=== PATIENT | female | born 1965 | race Caucasian/White ===

== ENCOUNTER 2016-11-15 19:34 | Emergency (ER) | payer BC, OTHER ==
[~2016-11-15] VITALS: Ht 162.6 cm; Wt 71.2 kg
[~2016-11-15 19:34] MED LIST: BUPR300T59 PO; CLON1TAB4 PO; DEXL60CA9 PO; FLUT1DIS31 INH; MODA100T32 PO; RIZA10TA26 PO; TEMA15CA PO; VILA40TA PO
--- OUTSIDE RECORDS SUMMARY | 2016-11-15 19:38 | XMS REPORT | Referral Summary ---
Author Author [facility] Organization [facility] Address Unknown Phone Unavailable Care Team Providers Care Top And Trim Worker Name Role Phone PavithrachelseaFrench Primary Care Physician [phone] Encounter Date(s): 06/21/15 - 06/21/15 [facility] [address] [place] [address]- Discharge Diagnosis: Encounter for gynecological examination (general) (routine ) without abnormal findings Discharge Diagnosis: Encounter for immunization Discharge Diagnosis: Encounter for immunization Discharge Diagnosis: Well woman exam with routine gynecological exam Discharge Disposition: -Home or Self Care Attending Physician: Kelly Castellon APRN Admitting Physician: Kelly Castellon APRN Vital Signs Most recent to 1 oldest [Reference Range]: Peripheral Pulse 90 bpm Rate [60-100 bpm] (06/21/15 8:50 AM) Blood Pressure 124/76 mmHg [90-140/60-90 mmHg] (06/21/15 8:50 AM) Problem List Condition Effective Dates Status Health Status Informant Acne(Confirmed) Resolved Allergic rhinitis - Resolved hayfever(Confirmed) Anxiety Resolved disorder(Confirmed) Asthma(Confirmed) Resolved Depression(Confirmed Resolved ) Gastritis(Confirmed) Resolved Elevated calcium Active levels in blood(Confirmed) Insomnia(Confirmed) Resolved Renal stones - Resolved urethral(Confirmed) Allergies, Adverse Reactions, Alerts Substance Reaction Severity Status cephalexin Urticaria (hives) AND SOB Active Hibiclens1 Active iodine Eczema (rash) Active vancomycin histamine release rxn Active itching all over 1Hibiclens - rash Medications Advair Diskus 250 mcg-50 mcg inhalation powder See Instructions, INHALE ONE DOSE BY MOUTH TWICE DAILY, # 60 unknown unit, eRx: [id number], INHALE ONE DOSE BY MOUTH TWICE DAILY Start Date: 08/18/14 Status: Ordered Genoveva Oral, 1 tab daily at HS, 0 Refill(s) Start Date: 05/17/14 Status: Ordered Benadryl Allergy mg, Oral, Daily, as needed for allergy symptoms, 0 Refill(s) Start Date: 02/01/14 Status: Ordered buPROPion 300 mg/24 hours (XL) oral tablet, extended release 1 tabs, Oral, Daily, # 30 tabs, 0 Refill(s) Start Date: 02/01/14 Status: Ordered clonazePAM 1 mg oral tablet, disintegrating 1 mg 1 tabs, Oral, Daily, as needed for anxiety, 0 Refill(s) Start Date: 02/01/14 Status: Ordered Dexilant 60 mg oral delayed release capsule See Instructions, 1 caps Oral Daily, # 30 caps, eRx: [id number], 1 caps Oral Daily Start Date: 04/12/15 Status: Ordered Dexilant 60 mg oral delayed release capsule See Instructions, 1 caps Oral Daily, # 30 caps, 5 Refill(s), eRx: [facility], 1 caps Oral Daily Start Date: 05/12/15 Status: Ordered modafinil 100 mg oral tablet 100 mg 1 tabs, Oral, Raghavendra, Dr Harrell prescriber, # 30 tabs, 0 Refill(s) Start Date: 04/19/15 Status: Ordered rizatriptan 10 mg oral tablet See Instructions, TAKE ONE TABLET BY MOUTH AT ONSET OF HEADACHE, MAY REPEAT IN 2 HOURS IF NOT BETTER. MAXIMUM 2 TABLETS PER DAY., # 20 tabs, eRx: [facility], TAKE ONE TABLET BY MOUTH AT ONSET OF HEADACHE, MAY REPEAT IN 2 HOURS IF NOT BETT... Start Date: 03/21/15 Status: Ordered temazepam 15 mg oral capsule 1 caps, Oral, Bedtime (once a day), as needed for sleep, 0 Refill(s) Start Date: 02/01/14 Status: Ordered Ventolin HFA 90 mcg/inh inhalation aerosol See Instructions, INHALE TWO PUFFS EVERY 4 TO 6 HOURS NEEDED, # 18 unknown unit, 6 Refill(s), eRx: [id number], INHALE TWO PUFFS EVERY 4 TO 6 HOURS NEEDED Start Date: 03/04/15 Status: Ordered Viibryd 40 mg oral tablet tabs, Oral, Daily, 0 Refill(s) Start Date: 02/01/14 Status: Ordered Vitamin D with Minerals oral tablet 1 tabs, Oral, Daily, # 30 tabs, 0 Refill(s) Start Date: 03/04/15 Status: Ordered Vitamin D3 1000 intl units oral tablet 2,000 Intl_Units 2 tabs, Oral, Daily, # 30 tabs, 0 Refill(s) Start Date: 03/10/15 Status: Ordered Zantac 150 mg, Oral, Bedtime (once a day), 0 Refill(s) Start Date: 05/17/14 Status: Ordered Results No data available for this section Immunizations Vaccine Date Refusal Reason influenza virus vaccine, inactivated 06/21/15 Procedures Procedure Date Related Diagnosis Body Site Colonoscopy1 05/18/15 COLORECTAL CANCER SCREENING; COLONOSCOPY ON 05/18/15 INDIVIDUAL NOT MEETING CRITERIA FOR HIGH RISK2 bimanual pelvic examination Cystoscopy hydrodistention of bladder SLT laser vaporiz chronic trigon & interstitia tendon reimplant urethral calibration & dilation 1repeat in 10 yrs unless new indications arise per Dr Ritter notes 2Normal, repeat in 10 years Social History Social History Type Response Smoking Status Former smoker; Type: Cigarettes Assessment and Plan No data available for this section
--- OUTSIDE RECORDS SUMMARY | 2016-11-15 19:38 | XMS REPORT | Referral Summary ---
Author Author [facility] Organization [facility] Address Unknown Phone Unavailable Care Team Providers Care Boarder Steam Name Role Phone French Pelaez Primary Care Physician [phone] Encounter VC Date(s): 04/13/16 - 04/13/16 [facility] [address] [place] [id number] Discharge Diagnosis: Classic migraine Discharge Diagnosis: Intractable classical migraine Discharge Disposition: 01-Home or Self Care Attending Physician: French Pelaez DO Admitting Physician: French Pelaez DO Vital Signs Most recent to 1 oldest [Reference Range]: Temperature Tympanic 36.9 degC [36.6-38.1 degC] (04/13/16 1:21 PM) Peripheral Pulse 78 bpm Rate [60-100 bpm] (04/13/16 1:21 PM) Respiratory Rate 17 br/min [14-20 br/min] (04/13/16 1:21 PM) Blood Pressure 140/100 mmHg [90-140/60-90 mmHg] (04/13/16 1:21 PM) SpO2 98 % (04/13/16 1:21 PM) Problem List Condition Effective Dates Status Health Status Informant Acne(Confirmed) Resolved Allergic rhinitis - Resolved hayfever(Confirmed) Anxiety Resolved disorder(Confirmed) Asthma(Confirmed) Resolved Depression(Confirmed Resolved ) Enthesopathy of hip Active region(Confirmed) Gastritis(Confirmed) Resolved Elevated calcium Active levels in blood(Confirmed) Hyperparathyroidism( Active Confirmed) Insomnia(Confirmed) Resolved Lumbar Active radiculopathy(Confir med) Classic Active migraine(Confirmed) Atrophy of calf Active muscles on right(Confirmed) Renal stones - Resolved urethral(Confirmed) Spinal stenosis, Active lumbar region, without neurogenic claudication(Confirm ed) Allergies, Adverse Reactions, Alerts Substance Reaction Severity Status cephalexin Urticaria (hives) AND SOB Active erythromycin Active Hibiclens1 Active iodine Eczema (rash) Active Ultram2 Active vancomycin histamine release rxn Active itching all over 1Hibiclens - rash 2possible reaction, developed hives after taking Medications acetaminophen extended release mg, Oral, q8hr, 0 Refill(s) Start Date: 01/25/16 Status: Ordered Adderall 30 mg oral tablet 30 mg 1 tabs, Oral, BID, 0 Refill(s) Start Date: 02/22/16 Status: Ordered Advair Diskus 250 mcg-50 mcg inhalation powder See Instructions, INHALE ONE DOSE BY MOUTH TWICE DAILY, # 60 unknown unit, eRx: [facility], INHALE ONE DOSE BY MOUTH TWICE DAILY [...] mg oral delayed release capsule See Instructions, TAKE ONE CAPSULE BY MOUTH ONCE DAILY, # 30 caps, 5 Refill(s), [facility], TAKE ONE CAPSULE BY MOUTH ONCE DAILY Start Date: 02/02/16 Status: Ordered Fetzima 40 mg oral capsule, extended release mg caps, Oral, Daily, 0 Refill(s) Start Date: 04/04/16 Status: Ordered Fioricet oral tablet 1 tabs, Oral, q4hr, as needed for pain, # 40 tabs, 0 Refill(s) Start Date: 04/13/16 Stop Date: 05/14/16 Status: Ordered rizatriptan 10 mg oral tablet See Instructions, TAKE ONE TABLET BY MOUTH AT ONSET OF HEADACHE, MAY REPEAT IN 2 HOURS IF NOT BETTER. MAXIMUM OF 2 TABLETS PER DAY., # 20 tabs, [facility], TAKE ONE TABLET BY MOUTH AT ONSET OF HEADACHE, MAY REPEAT IN 2 HOURS IF NOT BE... Start Date: 04/03/16 Status: Ordered temazepam 30 mg oral capsule 30 mg 1 caps, Oral, Bedtime (once a day), as needed for sleep, 0 Refill(s) Start Date: 02/22/16 Status: Ordered Ultram 50 mg oral tablet 50 mg 1 tabs, Oral, q6hr, as needed for pain, # 40 tabs, 0 Refill(s) Start Date: 03/14/16 Status: Ordered Ventolin HFA 90 mcg/inh inhalation aerosol See Instructions, INHALE TWO PUFFS EVERY 4 TO 6 HOURS NEEDED, # 18 unknown unit, 6 Refill(s), eRx: [facility], INHALE TWO PUFFS EVERY 4 TO 6 HOURS NEEDED Start Date: 03/04/15 Status: Ordered Vitamin D with Minerals oral tablet 1 tabs, Oral, Daily, # 30 tabs, 0 Refill(s) Start Date: 03/04/15 Status: Ordered Vitamin D3 1000 intl units oral tablet 2,000 Intl_Units 2 tabs, Oral, Daily, # 30 tabs, 0 Refill(s) Start Date: 03/10/15 Status: Ordered Zantac 150 mg, Oral, Bedtime (once a day), 0 Refill(s) Start Date: 05/17/14 Status: Ordered Zofran 4 mg oral tablet 4 mg 1 tabs, Oral, q6hr, Nausea or Vomiting, # 30 tabs, 0 Refill(s), Pharmacy: [facility], 1 tabs Oral q6hr,PRN:Nausea or Vomiting Start Date: 04/13/16 Stop Date: 05/14/16 Status: Ordered Results No data available for this section Immunizations Vaccine Date Refusal Reason influenza virus vaccine, inactivated 06/21/15 Procedures Procedure Date Related Diagnosis Body Site BILATERAL TROCHANTERIC BURSE/ INJ UNDER 03/13/16 ULTRASOUND L3-4 Translaminar ANTHONY 02/28/16 Colonoscopy1 05/18/15 COLORECTAL CANCER SCREENING; COLONOSCOPY ON 05/18/15 INDIVIDUAL NOT MEETING CRITERIA FOR HIGH RISK2 Bone density scan3 03/08/14 bimanual pelvic examination Cystoscopy hydrodistention of bladder SLT laser vaporiz chronic trigon & interstitia tendon reimplant urethral calibration & dilation 1repeat in 10 yrs unless new indications arise per Dr Ritter notes 2Normal, repeat in 10 years 3REPEAT IN 2 YEARS Social History Social History Type Response Smoking Status Former smoker; Type: Cigarettes Assessment and Plan Extracted from: Title: Office Visit Note Author: French Pelaez DO Date: 04/13/16 Assessment/Plan 1.Classic migraine 1. Her history is consistent with classic migraines although they seem to be worse compared to her baseline. 2. CT of the head was negative. 3. She was treated in the office with 500 mL of normal saline by IV over an hour, 25 mg of Benadryl and 5 mg of morphine in addition to 4 mg of Zofran. Patient was observed for 20 Hours, on dismissal her headaches have decreased from 8-0. 4. She was dismissed to home withFioricet, one tablet every 6 hours as needed and Zofran4 mgevery 6 hours as needed for nausea. 5. Follow-up if recurrent symptoms, we may consider putting her on Topamax for preventivemigraine treatment. Over one hour was spent jimi-su-bjke again with this patientand her today. Ordered: Sodium Chloride 0.9% 500 mL, Total Volume (mL): 500, IV, 500 mL/hr, Start Date : 04/13/16 14:18:00 CDT Office Visit Level 5 Est 80151 Ther/Proph/Diag Iv Inf Init 37618 2.Intractable classical migraine As above If the vaginal spotting persists then we plan on sending her to coating mixer tender for further evaluation and recommendations. Ordered: Office Visit Level 5 Est 89435 Ther/Proph/Diag Iv Inf Init [id number] Orders: butalbital/acetaminophen/caffeine, 1 tabs, Oral, q4hr, as needed for pain, # 40 tabs, 0 Refill(s) ondansetron, 4 mg 1 tabs, Oral, q6hr, Nausea or Vomiting, # 30 tabs, 0 Refill( s), Pharmacy: [id number], 1 tabs Oral q6hr,PRN:Nausea or Vomiting
--- OUTSIDE RECORDS SUMMARY | 2016-11-15 19:38 | XMS REPORT | Referral Summary ---
Author Author [facility] Organization [facility] Address Unknown Phone Unavailable Care Team Providers Care Emergency Planning And Response Manager Name Role Phone PavithrachelseaFrench Primary Care Physician [phone] Encounter VC Date(s): 07/10/16 - 07/10/16 [facility] [address] [place], [place] [address] Discharge Disposition: 01-Home or Self Care Attending Physician: Amari Torres MD Admitting Physician: Amari Torres MD Vital Signs Most recent to 1 oldest [Reference Range]: Temperature Temporal 36.9 degC Artery [36.3-37.8 (07/10/16 8:51 AM) degC] Peripheral Pulse 83 bpm Rate [60-100 bpm] (07/10/16 8:51 AM) Respiratory Rate 16 br/min [14-20 br/min] (07/10/16 8:51 AM) Blood Pressure 148/93 mmHg [90-140/60-90 mmHg] *HI* (07/10/16 8:51 AM) SpO2 99 % (07/10/16 8:51 AM) Problem List Condition Effective Dates Status Health Status Informant Acne(Confirmed) Resolved Allergic rhinitis - Resolved hayfever(Confirmed) Anxiety Resolved disorder(Confirmed) Asthma(Confirmed) Resolved Depression(Confirmed Resolved ) Enthesopathy of hip Active region(Confirmed) Gastritis(Confirmed) Resolved Elevated calcium Active levels in blood(Confirmed) Insomnia(Confirmed) Resolved Lumbar Active radiculopathy(Confir med) Lumbar Active spondylosis(Confirme d) Classic Active migraine(Confirmed) Atrophy of calf Active muscles on right(Confirmed) Hyperparathyroidism( Active Confirmed) Renal stones - Resolved urethral(Confirmed) Spinal stenosis, Active lumbar region, without neurogenic claudication(Confirm ed) Allergies, Adverse Reactions, Alerts Substance Reaction Severity Status Adhesive Bandage Rash Active cephalexin Urticaria (hives) AND SOB Active erythromycin [...] TWICE DAILY, # 60 unknown unit, eRx: [facility], INHALE ONE DOSE BY MOUTH TWICE [...] DAILY, # 30 caps, 5 Refill(s), eRx: [facility], TAKE ONE CAPSULE BY MOUTH ONCE DAILY Start Date: 02/02/16 Status: Ordered Fioricet oral tablet 1 tabs, Oral, q4hr, as needed for pain, # 40 tabs, 0 Refill(s), Pharmacy: [facility]28 Start Date: 05/28/16 Status: Ordered HYDROcodone-acetaminophen 5 mg-325 mg oral tablet 1-2 tabs, Oral, q4hr, as needed for pain, # 24 tabs, 0 Refill(s) Start Date: 07/10/16 Status: Ordered rizatriptan 10 mg oral tablet See Instructions, TAKE ONE TABLET BY MOUTH AT ONSET OF HEADACHE, MAY REPEAT IN 2 HOURS IF NOT BETTER. MAXIMUM OF 2 TABLETS PER DAY., # 20 tabs, eRx: [facility], TAKE ONE TABLET BY MOUTH AT ONSET OF HEADACHE, MAY REPEAT IN 2 HOURS IF NOT BE... Start Date: 04/03/16 Status: Ordered temazepam 30 mg oral capsule 30 mg 1 caps, Oral, Bedtime (once a day), as needed for sleep, 0 Refill(s) Start Date: 02/22/16 Status: Ordered Ventolin HFA 90 mcg/inh inhalation aerosol See Instructions, INHALE TWO PUFFS EVERY 4 TO 6 HOURS NEEDED, # 18 unknown unit, 6 Refill(s), eRx: [facility], INHALE TWO PUFFS EVERY 4 TO 6 HOURS NEEDED Start Date: 03/04/15 Status: Ordered Viibryd 40 mg oral tablet mg tabs, Oral, Daily, 0 Refill(s) Start Date: 07/10/16 Status: Ordered Zantac 150 mg, Oral, Bedtime (once a day), 0 Refill(s) Start Date: 05/17/14 Status: Ordered Results Chemistry Most recent to 1 oldest [Reference Range]: Surg. Parathyroid 11 pg/mL Hormone [11-67 (07/10/16 12:13 PM) pg/mL] U Beta hCG Ql Neg (07/10/16 9:02 AM) Immunizations Vaccine Date Refusal Reason influenza virus vaccine, inactivated 06/21/15 Procedures Procedure Date Related Diagnosis Body Site Collection of venous blood by venipuncture 07/10/16 Parathyroidectomy or exploration of 07/10/16 parathyroid(s);.. Bilateral L5-S1 Facet 04/24/16 BILATERAL TROCHANTERIC BURSE/ INJ UNDER 03/13/16 ULTRASOUND [...] Cigarettes Assessment and Plan Extracted from: Title: Ambulatory Patient Education Author: Nancy Thurman RN, Date: 07/10/16 ACLS, BLS, PALS [facility] [place] [phone] Post Operative Instructions Activities Ambulate_X_ Unrestricted Exercise__ None_x_ Light__ UnrestrictedOther: 1 weeks Do not strain or lift more than 15 lbs. for 1 week. Diet __ Liquids (Jell-O, soups, etc., if you are nauseated) _X_ Begin with liquids and light foods then progress to regular diet. __ Regular diet __ No alcoholic beverages for 24 hours or while taking pain medication. Personal hygiene __ Bath _X_ Shower after _24_ hours__ Sponge Bath__ Sitz Baths At Home care __ Remove dressing in ___hours__ Change dressing as necessary. __ Keep dressing clean and dry.__ Do not change dressing until you see your doctor. __ Elevate affected area above level of your heart._X_ Apply ice to area for _ 24__ hours ___Remove drain in ___ hours __ Other: If any problems occur or if you have any further questions, please contact your physician. In an emergency, call [phone] ([phone]), if you cannot reach your physician. If you find that you cannot contact your physician, but feel that your signs and symptoms warrant a physicians attention, go to an Emergency room which is the closest to you. Activities:Call your surgeon promptly if you have: __ Take Tylenol/Advil as needed for discomfort _X_ If fever over _101_ _ _X_ Prescription given for discomfort. Use as directed._X_ Pain not relieved by pain medication _X_ Bleeding or unexpected drainage from incision. _X_ Cleanse incision with Hydrogen peroxide twice daily and apply Polysporin ointment _X_ Resume routine medications._X_ Extreme redness or swelling around incision. Other: __ Inability to urinate by: _X_ Next dose of pain medicine may be given at __X_ Persistent nausea and vomiting. (Take with food to prevent stomach upset.) _X_ Stool softener_X_ Cough develops or difficulty breathing. Do NOT drive or operate hazardous machinery for 24 hours or while taking pain medication. Do not sign any important documents or make important decisions for 24 hours following surgery. When taking pain medicine, be careful as you walk or climb stairs as dizziness is not unusual. Check temperature every four hours during the day for two days. ENT Parathyroidectomy A parathyroidectomy is surgery to remove one or more parathyroid glands. These glands are in your neck. They produce a hormone (parathyroid hormone) that helps to control the level of calcium in your body. Each gland is very small, about the size of a grain of rice. Most people have four parathyroid glands. You may have a parathyroidectomy if your body produces too much parathyroid hormone (hyperparathyroidism). This is usually caused by one or more of your parathyroid glands becoming enlarged from a type of noncancerous tumor (adenoma) . One of four methods may be used for a parathyroidectomy. An open, minimally invasive, video-assisted, or endoscopic procedure may be done. Some steps of the procedure will vary depending on the method being used. LET YOUR HEALTH CARE PROVIDER KNOW ABOUT: Any allergies you have. All medicines you are taking, including vitamins, herbs, eye drops, creams, and flxc-gru-hjrdanh medicines. Previous problems you or members of your family have had with the use of anesthetics. Any blood disorders you have. Previous surgeries you have had. Medical conditions you have. RISKS AND COMPLICATIONS Generally, this is a safe procedure. However, problems can occur and include: Excessive bleeding. Infection near the incision. Slow healing. Pooling of blood under the skin in the incision area (hematoma). Blood clots. Damage to: The nerves in your neck. Skin (scarring). Surrounding blood vessels. Need for additional surgery. A hoarse or weak voice. A condition in which your body does not make enough parathyroid hormone ( hypoparathyroidism). This is rare. Difficulty breathing. This is rare. BEFORE THE PROCEDURE Ask your health care provider: About changing or stopping your regular medicines. This is especially important if you are taking diabetes medicines or blood thinners. If you can take medicines such as aspirin and ibuprofen. These medicines can thin your blood. Do not take these medicines if your health care provider directs you not to. Do not eat or drink anything after midnight on the night before the procedure or as directed by your health care provider. You might be asked to shower or wash with an antibacterial soap. Plan to have someone take you home after the procedure. PROCEDURE An IV tube will be inserted into a vein in your hand or arm. Medicine will flow through this tube directly into your body. You may be given a medicine to help you relax (sedative). You will be given a medicine that makes you go to sleep (general anesthetic). As soon as you are asleep, the surgeon will make the incisions needed for the type of procedure that you are having. Open parathyroidectomy. For this procedure, the surgeon will make a single incision in the center of your neck. The incision will be about 24 inches long. Minimally invasive parathyroidectomy. For this procedure, the surgeon will make one small incision in the side of your neck. This smaller incision will be about 12 inches long. Before the procedure, you might be given an injection of a type of medicine that will help the surgeon to locate the gland. Video-assisted parathyroidectomy. For this procedure, two small incisions will be made in your neck. One incision is for the instruments that will be used to remove the gland. The other incision is for a tiny camera that helps the surgeon to see inside your neck. Endoscopic parathyroidectomy. For this procedure, the surgeon uses a tool that is like a small, flexible, tubelike telescope (endoscope). The endoscope is inserted through an incision that is made just above your collarbone. This method reduces the scarring and pain of a parathyroidectomy. The surgeon will remove the gland or glands that are causing problems and then close the incisions using stitches or other methods. The stitches are often hidden under the skin. AFTER THE PROCEDURE Your blood pressure, heart rate, breathing rate, and blood oxygen level will be monitored often until the medicines you were given have worn off. Your blood will be tested to check the calcium level in your body. You may have numbness around your mouth or in your fingers or toes for a day or two after the surgery. This is caused by a low level of calcium. You may have to take calcium supplements. This information is not intended to replace advice given to you by your health care provider. Make sure you discuss any questions you have with your health care provider. Document Released: 11/08/2009 Document Revised: 09/02/2015 Document Reviewed: [employer] Interactive Patient Education 2016 [employer] Follow Up With: Where: When: Remington Regehr 1949 [employer] [place]; Via [place] Addison [phone] Business (1) Within 1 week Comments:
--- OUTSIDE RECORDS SUMMARY | 2016-11-15 19:38 | XMS REPORT | Referral Summary ---
Author Author [facility] Organization [facility] Address Unknown Phone Unavailable Care Team Providers Care Forestry Pilot Name Role Phone French Pelaez Primary Care Physician [phone] Encounter VC Date(s): 09/24/16 - 09/24/16 [facility] [address] [place] [address]- Discharge Diagnosis: Sleep Pattern Disturbance Discharge Diagnosis: Heart palpitations Discharge Diagnosis: HTN (hypertension) Discharge Diagnosis: Mixed anxiety and depressive disorder Discharge Diagnosis: Classic migraine Discharge Disposition: 01-Home or Self Care Attending Physician: French Pelaez DO Admitting Physician: French Pelaez DO Vital Signs Most recent to 1 oldest [Reference Range]: Peripheral Pulse 86 bpm Rate [60-100 bpm] (09/24/16 8:54 AM) Respiratory Rate 18 br/min [14-20 br/min] (09/24/16 8:54 AM) Blood Pressure 110/82 mmHg [90-140/60-90 mmHg] (09/24/16 8:54 AM) SpO2 98 % (09/24/16 8:54 AM) Problem List Condition Effective Dates Status [...] 2possible reaction, developed hives after taking Medications Advair Diskus 250 mcg-50 mcg inhalation powder See Instructions, INHALE ONE DOSE BY MOUTH TWICE DAILY, # 60 unknown unit, eRx: [facility], INHALE ONE DOSE BY MOUTH [...] ONCE DAILY, # 30 caps, 5 Refill(s), Pharmacy: [facility], TAKE ONE CAPSULE BY MOUTH ONCE DAILY Start Date: 08/17/16 Status: Ordered Dulcolax Laxative mg, Daily, 0 Refill(s) Start Date: 09/18/16 Status: Ordered Dulcolax Stool Softener mg, Oral, BID, 0 Refill(s) Start Date: 09/18/16 Status: Ordered Fioricet oral tablet 1 tabs, Oral, q4hr, as needed for pain, # 40 tabs, 3 Refill(s), Pharmacy: [facility] Start Date: 08/21/16 Status: Ordered hydroCHLOROthiazide 25 mg oral tablet 25 mg 1 tabs, Oral, Daily, # 90 tabs, 3 Refill(s), Pharmacy: [facility], 1 tabs Oral Daily,x90 days Start Date: 09/24/16 Stop Date: 09/19/17 Status: Ordered propranolol 10 mg oral tablet 10 mg 1 tabs, Oral, BID, # 60 tabs, 3 Refill(s), Pharmacy: [facility], 1 tabs Oral BID Start Date: 09/20/16 Status: Ordered rizatriptan 10 mg oral tablet mg tabs, Oral, Daily, 0 Refill(s) Start Date: 09/18/16 Status: Ordered traMADol 50 mg oral tablet 1-2 tabs, Oral, q6hr, as needed for pain, # 40 tabs, 0 Refill(s) Start Date: 09/07/16 Stop Date: 09/28/16 Status: Ordered Ventolin HFA 90 mcg/inh inhalation aerosol See Instructions, INHALE TWO PUFFS EVERY 4 TO 6 HOURS NEEDED, # 18 unknown unit, 6 Refill(s), eRx: [facility], INHALE TWO PUFFS EVERY 4 TO 6 HOURS NEEDED Start Date: 03/04/15 Status: Ordered Viibryd 40 mg oral tablet mg tabs, Oral, Daily, 0 Refill(s) Start Date: 07/10/16 Status: Ordered Wellbutrin XL 300 mg/24 hours oral tablet, extended release 300 mg 1 tabs, Oral, Daily, # 30 tabs, 1 Refill(s), Pharmacy: [facility], 1 tabs Oral Daily Start Date: 07/11/16 Status: Ordered Zantac 150 mg, Oral, Bedtime (once a day), 0 Refill(s) Start Date: 05/17/14 Status: Ordered Results No data available for this section Immunizations Given and Recorded Vaccine Date Status Refusal Reason influenza virus vaccine, inactivated 06/21/15 Given zoster vaccine live 09/24/16 Given Procedures Procedure Date Related Diagnosis Body Site Parathyroidectomy or exploration of 07/10/16 parathyroid(s);.. Bilateral [...] Visit Note Author: French Pelaez DO Date: 09/24/16 Assessment/Plan 1.Sleep Pattern Disturbance 1. We will refer for sleep study. 2. Good sleep hygiene discussed and recommended. 3. Avoid stimulants. Ordered: Office Visit Level 4 Est 61821 2.Mixed anxiety and depressive disorder 1. Continue with recommendations as far insurance follow up specialist. Ordered: Office Visit Level 4 Est 33515 3.Heart palpitations 1. Palpitations were likely medication related. 2. I anticipate that the propranolol will help with the palpitations as well as titrating her off of Fioricet. 3. Holter monitor study was essentially normal. 4. If these symptoms persist then we plan on referring her to sales and management trainee. She would like to hold off on referral at this time. Ordered: Office Visit Level 4 Est 16803 4.Classic migraine 1. Continue with recommendations as per Dr. Beebe. Ordered: Office Visit Level 4 Est 33852 5.HTN (hypertension) 1. Blood pressure is controlled at this time. 2. Continue with low salt diet. 3. Continue with HCTZ as previous. Ordered: hydrochlorothiazide, 25 mg 1 tabs, Oral, Daily, # 90 tabs, 3 Refill(s), Pharmacy: [facility], 1 tabs Oral Daily,x90 days Need for vaccination 1. Shingles vaccination given today. Ordered: Office Visit Level 4 Est 96868
--- OUTSIDE RECORDS SUMMARY | 2016-11-15 19:39 | XMS REPORT | Referral Summary ---
Author Author [facility] Organization [facility] Address Unknown Phone Unavailable Care Team Providers Care Help Desk Analyst Name Role Phone French Pelaez Primary Care Physician [phone] Encounter VC Date(s): 07/17/16 - 07/17/16 [facility] [address] [place], [place] [address] Discharge Disposition: 01-Home or Self Care Attending Physician: Remington Tony MD Admitting Physician: Remington Tony MD Vital Signs No data available for this section Problem List Condition Effective Dates Status Health [...] TWICE DAILY, # 60 unknown unit, eRx: [facility], INHALE ONE DOSE BY [...] 02/01/14 Status: Ordered clonazePAM 1 mg oral tablet See Instructions, TAKE ONE-HALF TABLET BY MOUTH TWICE DAILY AND ONE TABLET AT BEDTIME NEEDED., # 60 tabs, 0 Refill(s) Start Date: 07/11/16 Status: Ordered clonazePAM 1 mg oral tablet, disintegrating 1 mg 1 tabs, Oral, Daily, as needed for anxiety, 0 Refill(s) Start Date: 02/01/14 Status: Ordered Dexilant 60 mg oral delayed release capsule See Instructions, TAKE ONE CAPSULE BY MOUTH ONCE DAILY, # 30 caps, 5 Refill(s), eRx: [facility], TAKE ONE CAPSULE BY MOUTH ONCE DAILY Start Date: 02/02/16 Status: Ordered Fioricet oral tablet 1 tabs, Oral, q4hr, as needed for pain, # 40 tabs, 0 Refill(s), Pharmacy: [facility]28 Start Date: 05/28/16 Status: Ordered [...] TABLETS PER DAY., # 20 tabs, eRx: [facility], TAKE ONE TABLET BY MOUTH AT ONSET OF HEADACHE, MAY REPEAT IN 2 HOURS IF NOT BE... Start Date: 04/03/16 Status: Ordered temazepam 30 mg oral capsule 30 mg 1 caps, Oral, Bedtime (once a day), as needed for sleep, 0 Refill(s) Start Date: 02/22/16 Status: Ordered temazepam 30 mg oral capsule 30 mg 1 caps, Oral, Bedtime (once a day), as needed for sleep, X 30 days, # 30 caps, 0 Refill(s) Start Date: 07/11/16 Stop Date: 08/10/16 Status: Ordered Ventolin HFA 90 mcg/inh inhalation aerosol See Instructions, INHALE TWO PUFFS EVERY 4 TO 6 HOURS NEEDED, # 18 unknown unit, 6 Refill(s), eRx: [facility], INHALE TWO PUFFS EVERY 4 TO 6 HOURS NEEDED Start Date: 03/04/15 Status: Ordered Viibryd 40 mg oral tablet mg tabs, Oral, Daily, 0 Refill(s) Start Date: 07/10/16 Status: Ordered Wellbutrin XL 300 mg/24 hours oral tablet, extended release 300 mg 1 tabs, Oral, Daily, # 30 tabs, 1 Refill(s), Pharmacy: [facility], 1 tabs Oral Daily Start [...]
--- OUTSIDE RECORDS SUMMARY | 2016-11-15 19:39 | XMS REPORT | Referral Summary ---
Author Author [facility] Organization [facility] Address Unknown Phone Unavailable Care Team Providers Care Activities Coordinator Name Role Phone French Pelaez Primary Care Physician [phone] Encounter VC Date(s): 02/22/16 - 02/22/16 [facility] [address] [place] [address] Discharge Diagnosis: Chronic back pain Discharge Diagnosis: Encounter for wellness examination Discharge Diagnosis: GERD (gastroesophageal reflux disease) Discharge Diagnosis: Moderate persistent stable asthma Discharge Disposition: 01-Home or Self Care Attending Physician: French Pelaez DO Admitting Physician: French Pelaez DO Vital Signs Most recent to 1 oldest [Reference Range]: Peripheral Pulse 95 bpm Rate [60-100 bpm] (02/22/16 1:02 PM) Blood Pressure 118/80 mmHg [90-140/60-90 mmHg] (02/22/16 1:02 PM) SpO2 99 % (02/22/16 1:02 PM) Problem List Condition Effective Dates Status Health Status Informant Acne(Confirmed) Resolved Allergic rhinitis - Resolved hayfever(Confirmed) Anxiety Resolved disorder(Confirmed) Asthma(Confirmed) Resolved Depression(Confirmed Resolved ) Enthesopathy of hip Active region(Confirmed) Gastritis(Confirmed) Resolved Elevated calcium Active levels in blood(Confirmed) Hyperparathyroidism( Active Confirmed) Insomnia(Confirmed) Resolved Lumbar Active radiculopathy(Confir med) Classic Active migraine(Confirmed) Atrophy of calf Active muscles on right(Confirmed) Renal stones - Resolved urethral(Confirmed) Allergies, Adverse [...] TWICE DAILY, # 60 unknown unit, eRx: [facility], INHALE ONE DOSE BY [...] DAILY, # 30 caps, 5 Refill(s), eRx: [facility], TAKE ONE CAPSULE BY MOUTH ONCE DAILY Start Date: 02/02/16 Status: Ordered temazepam 30 mg oral capsule 30 mg 1 caps, Oral, Bedtime (once a day), as needed for sleep, 0 Refill(s) Start Date: 02/22/16 Status: Ordered Tylenol with Codeine #3 oral tablet 1 tabs, Oral, q6hr, as needed for pain, # 30 tabs, 0 Refill(s) Start Date: 02/22/16 Stop Date: 03/23/16 Status: Ordered Ventolin HFA 90 mcg/inh inhalation aerosol See Instructions, INHALE TWO PUFFS EVERY 4 TO 6 HOURS NEEDED, # 18 unknown unit, 6 Refill(s), eRx: [facility], INHALE TWO PUFFS EVERY [...] Cigarettes Assessment and Plan Extracted from: Title: Wellness visit Author: French Pelaez DO Date: 02/22/16 Assessment/Plan 1.Encounter for wellness examination 1. This is a well-developed well- nourished 51-year-old female in good health. 2. Healthy lifestyle changes recommended to decrease cardiovascular risk factors. Patient voiced understanding. 3. Labs reviewed in detail with the patient, copy was provided. 4. Repeat fasting labs in one year. 5. Recommended that she ensures she is getting a yearly well woman exam in addition to mammogram. Ordered: Initial Comp [place]ive [place] 40 to 64 [place] [address] 2.Moderate persistent stable asthma 1. Asthma is well controlled at this time. 2. Continue with Advair for prevention and Ventolin for rescue inhaler. 3. Follow-up for exacerbations that aren't controlled. Ordered: Initial Comp [place]ive [place] 40 to 64 [place] [address] 3.GERD (gastroesophageal reflux disease) 1. Diet modification recommended. 2. Continue with Dexilant one tablet daily. Ordered: Initial Comp Preventive [place] 40 to 64 [place] [address] 4.Chronic back pain, Other chronic pain 1. Continue with scheduled back epidural injection. Continue with pain management as per Dr. Skinner. 2. Discontinue Ultram secondary to allergic reaction. 3. Tylenol 3, one tablet every 4-6 hours as needed, prescription given for 30 tablets. Ordered: Initial Comp Preventive Med 40 to 64 [place] [address] Orders: acetaminophen-codeine, 1 tabs, Oral, q6hr, as needed for pain, # 30 tabs, 0 Refill(s)
--- OUTSIDE RECORDS SUMMARY | 2016-11-15 19:39 | XMS REPORT | Referral Summary ---
Author Author [facility] Organization [facility] Address Unknown Phone Unavailable Care Team Providers Care Member Of The Legislative Assembly Name Role Phone French Pelaez Primary Care Physician [phone] Encounter VC Date(s): 04/23/16 - 04/23/16 [facility] [address] [facility] [place] [address] Discharge Diagnosis: Lumbar disc herniation Discharge Diagnosis: Lumbar spondylosis Discharge Disposition: 01-Home or Self Care Attending Physician: Wally Skinner MD Admitting Physician: Wally Skinner MD Vital Signs Most recent to 1 oldest [Reference Range]: Blood Pressure 146/75 mmHg [90-140/60-90 mmHg] *HI* (04/23/16 1:50 PM) Problem List Condition Effective Dates Status [...] TWICE DAILY, # 60 unknown unit, eRx: [facility], INHALE ONE DOSE BY MOUTH [...] DAILY, # 30 caps, 5 Refill(s), eRx: [facility], TAKE ONE CAPSULE BY MOUTH [...] TABLETS PER DAY., # 20 tabs, eRx: [facility], TAKE ONE TABLET BY MOUTH [...] # 18 unknown unit, 6 Refill(s), eRx: [facility], INHALE TWO PUFFS EVERY 4 [...] Vomiting, # 30 tabs, 0 Refill(s), Pharmacy: [facility], 1 tabs Oral q6hr,PRN:Nausea or [...]
--- OUTSIDE RECORDS SUMMARY | 2016-11-15 19:39 | XMS REPORT | Referral Summary ---
Author Author [facility] Endocr[facility] Organization [facility] Address Unknown Phone Unavailable Care Team Providers Care Travelers' Aid Worker Name Role Phone French Pelaez Primary Care Physician [phone] Encounter VC Date(s): 03/04/15 - 03/04/15 [facility] Endocr[facility]ology [address] [place] [address] [facility] Discharge Diagnosis: Hypercalcemia Discharge Diagnosis: Hyperparathyroidism Discharge Disposition: 01-Home or Self Care Attending Physician: Kathy Franklin MD Admitting Physician: Kathy Franklin MD Referring Physician: French Pelaez DO Vital Signs Most recent to 1 oldest [Reference Range]: Peripheral Pulse 66 bpm Rate [60-100 bpm] (03/04/15 9:18 AM) Blood Pressure 128/86 mmHg [90-140/60-90 mmHg] (03/04/15 9:18 AM) Problem List Condition Effective Dates Status [...] TWICE DAILY, # 60 unknown unit, eRx: [facility], INHALE ONE DOSE BY MOUTH TWICE DAILY [...] 0 Refill(s) Start Date: 02/01/14 Status: Ordered Chantix Continuing Month 1 mg oral tablet 1 mg 1 tabs, Oral, BID, # 56 tabs, 1 Refill(s), Pharmacy: [id number] , 1 tabs Oral BID Start Date: 08/09/15 Stop Date: 10/10/15 Status: Ordered Chantix Starter Pack 0.5 mg-1 mg oral tablet See Instructions, TAKE DIRECTED ON PACKAGE, # 53 tabs, 1 Refill(s), eRx: [facility] [id number], TAKE DIRECTED ON PACKAGE Start Date: 08/08/15 Status: Ordered clonazePAM 1 mg oral tablet, disintegrating 1 mg 1 tabs, Oral, Daily, as needed for anxiety, 0 Refill(s) Start Date: 02/01/14 Status: Ordered Dexilant 60 mg oral delayed release capsule See Instructions, 1 caps Oral Daily, # 30 caps, eRx: [facility], 1 caps Oral Daily Start Date: 04/12/15 Status: Ordered Dexilant 60 mg oral delayed release capsule See Instructions, 1 caps Oral Daily, # 30 caps, 5 Refill(s), eRx: [facility], 1 caps Oral Daily Start Date: 05/12/15 Status: Ordered meloxicam 15 mg oral tablet 15 mg 1 tabs, Oral, Daily, # 30 tabs, 0 Refill(s), Pharmacy: [facility], 1 tabs Oral Daily Start Date: 09/02/15 Status: Ordered modafinil 100 mg oral tablet 100 mg 1 tabs, Oral, Dr Sharri Mabry prescriber, # 30 tabs, 0 Refill(s) Start Date: 04/19/15 Status: Ordered rizatriptan 10 mg oral tablet See Instructions, TAKE ONE TABLET BY MOUTH AT ONSET OF HEADACHE, MAY REPEAT IN 2 HOURS IF NOT BETTER. MAXIMUM 2 TABLETS PER DAY., # 20 tabs, eRx: [facility], TAKE ONE TABLET BY MOUTH [...] # 18 unknown unit, 6 Refill(s), eRx: [facility], INHALE TWO PUFFS EVERY [...] 0 Refill(s) Start Date: 05/17/14 Status: Ordered Zorvolex 35 mg oral capsule 35 mg 1 caps, Oral, BID, as needed for pain, # 42 caps, 0 Refill(s), Pharmacy: [facility], 1 caps Oral BID,PRN:as needed for pain Start Date: 06/28/15 Status: Ordered Results No data available for [...] Extracted from: Title: Ambulatory Patient Education Author: Kathy Franklin MD Date : 03/04/15 Family Medicine Hypercalcemia Hypercalcemia means the calcium in your blood is too high. Calcium in our blood is important for the control of many things, such as: Blood clotting. Conducting of nerve impulses. Muscle contraction. Maintaining teeth and bone health. Other body functions. In the bloodstream, calcium maintains a constant balance with another mineral, phosphate. Calcium is absorbed into the body through the small intestine. This is helped by Vitamin D. Calcium levels are maintained mostly by vitamin D and a hormone (parathyroid hormone). But the kidneys also help. Hypercalcemia can happen when the concentration of calcium is too high for the kidneys to maintain balance. The body maintains a balance between the calcium we eat and the calcium already in our body. If calcium intake is increased or we cannot use calcium properly, there may be problems. Some common sources of calcium are : Dairy products. Nuts. Eggs. Whole grains. Legumes. Green leafy vegetables. CAUSES There are many causes of this condition, but some common ones are: Hyperparathyroidism. This is an over activity of the parathyroid gland. Cancers of the breast, kidney, lung, head and neck are common causes of calcium increases. Medications that cause you to urinate more often (diuretics ), nausea, vomiting and diarrhea also increase the calcium in the blood. Overuse of calcium-containing antacids. SYMPTOMS Many patients with mild hypercalcemia have no symptoms. For those with symptoms common problems include: Loss of appetite. Constipation. Increased thirst. Heart rhythm changes. Abnormal thinking. Nausea. Abdominal pain. Kidney stones. Mood swings. Coma and when severe. Vomiting. Increased urination. High blood pressure. Confusion. DIAGNOSIS Your caregiver will do a medical history and perform a physical exam on you. Calcium and parathyroid hormone (PTH) may be measured with a blood test. TREATMENT The treatment depends on the calcium level and what is causing the higher level. Hypercalcemia can be lifethreatening. Fast lowering of the calcium level may be necessary. With normal kidney function, fluids can be given by vein to clear the excess calcium. Hemodialysis works well to reduce dangerous calcium levels if there is poor kidney function. This is a procedure in which a machine is used to filter out unwanted substances. The blood is then returned to the body. Drugs, such as diuretics, can be given after adequate fluid intake is established. These medications help the kidneys get rid of extra calcium. Drugs that lessen (inhibit ) bone loss are helpful in gaining long-term control. Phosphate pills help lower high calcium levels caused by a low supply of phosphate. Anti-inflammatory agents such as steroids are helpful with some cancers and toxic levels of vitamin D. Treatment of the underlying cause of the hypercalcemia will also correct the imbalance. Hyperparathyroidism is usually treated by surgical removal of one or more of the parathyroid glands and any tissue, other than the glands themselves, that is producing too much hormone. The hypercalcemia caused by cancer is difficult to treat without controlling the cancer. Symptoms can be improved with fluids and drug therapy as outlined above. PROGNOSIS Surgery to remove the parathyroid glands is usually successful. This also depends on the amount of damage to the kidneys and whether or not it can be treated. Mild hypercalcemia can be controlled with good fluid intake and the use of effective medications. Hypercalcemia often develops as a late complication of cancer. The expected outlook is poor without effective anticancer therapy. PREVENTION If you are at risk for developing hypercalcemia, be familiar with early symptoms. Report these to your caregiver. Good fluid intake (up to four quarts of liquid a day if possible) is helpful. Try to control nausea and vomiting, and treat fevers to avoid dehydration. Lowering the amount of calcium in your diet is not necessary. High blood calcium reduces absorption of calcium in the intestine. Stay as active as possible. SEEK IMMEDIATE MEDICAL CARE IF: You develop chest pain, sweating, or shortness of breath. You get confused, feel faint or pass out. You develop severe nausea and vomiting. MAKE SURE YOU: Understand these instructions. Will watch your condition. Will get help right away if you are not doing well or get worse. Document Released: 10/26/2005 Document Revised: 12/07/2013 Document Reviewed: [facility] Patient Information 2014 [employer]. No follow up information was provided. Extracted from: Title: Consult Note Author: Kathy Franklin MD Date: 03/04/15 Assessment/Plan Hypercalcemia Reviewed all results with patient. Recent calcium 11, PTH 111. Differential includes: Hyperparathyroidism vs benign familial hypercaciuric hypercalcemia Sarcoidosis less likely. Will order:24 h urine collection for calcium and creatinin and DEXA scan . Advised patient to keep hydrated. Return to clinic in 4weeks to discuss results and further management.
--- OUTSIDE RECORDS SUMMARY | 2016-11-15 19:39 | XMS REPORT | Continuity of Care Document ---
Author Author [facility] Organization [facility] Address Unknown Phone Unavailable Allergies Active Description Code Type Severity Reaction Onset Reported/Identified Relationship to Patient Clinical Status Yes iodine Drug Allergy N/A Eczema (rash) 07/07/2013 Yes Keflex Drug Allergy N/A Urticaria (hives) AND SOB 07/07/2013 Yes No Known Food Allergies Food Allergy N/A N/A 07/07/2013 Yes vancomycin Drug Allergy N/A histamine release rxn 07/08/2013 Medications Medication Packaging Start Date Stop Date Route Dosage Sig LIDOCAINE 1% MPF INJ (5ML) VL 08/07/2016 08/07/2017 ID ASDIR LIDOCAINE 1% MPF INJ (30ML) VL 08/07/2016 08/07/2017 ID ASDIR DEXAMETHASONE 10MG/1ML VIAL VL 08/07/2016 08/07/2017 EPD ASDIR methylPREDNISolone ACETATE 80MG/1ML INJ VL 08/07/20162016 EPD [facility] BUPIVACAINE 0.25% INJ [10 ML] VL 08/07/2016 08/07/2017 EPD [facility] Problems Date Dx Coded Attending Type Code Diagnosis Diagnosed By 07/08/2013 Gianni Figueroa DO Final 998.59 POSTOP INFECTION NEC 07/09/2013 Gianni Figueroa DO Final 311 DEPRESSIVE DISORDER NEC 07/09/2013 Gianni Figueroa DO Final 314.01 ADD CHILD W HYPERACT 07/09/2013 Gianni Figueroa DO Final 493.90 ASTHMA NOS 07/09/2013 Gianni Figueroa DO Final 530.81 ESOPHAGEAL REFLUX 07/09/2013 Gianni Figueroa DO Final 564.00 CONSTIPATION NOS 07/09/2013 Gianni Figueroa DO Final 998.31 DISRUPT INTERNAL OP WND 07/09/2013 Gianni Figueroa DO Final 998.59 POSTOP INFECTION NEC 08/07/2016 GINO WHEELER DF 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 Visit Date/Time Discharge Status Pt. Type Provider Facility Loc./Unit Complaint [id number] 07/07/2013 06:46:00 2012 08:49:00 DIS Inpatient Gianni Figueroa DO [facility] on [address]
--- OUTSIDE RECORDS SUMMARY | 2016-11-15 19:39 | XMS REPORT | Referral Summary ---
Author Author [facility] Organization [facility] Address Unknown Phone Unavailable Care Team Providers Care Safety Net Maker Name Role Phone French Pelaez Primary Care Physician [phone] Encounter VC Date(s): 02/22/15 - 02/22/15 [facility], [address] [place] [id number] Discharge Diagnosis: Contraception management Discharge Diagnosis: Hot flashes Discharge Diagnosis: Hyperlipidemia Discharge Diagnosis: Elevated calcium levels in blood Discharge Disposition: 01-Home or Self Care Attending Physician: French Pelaez DO Admitting Physician: French Pelaez DO Vital Signs Most recent to 1 oldest [Reference Range]: Temperature Tympanic 36.9 degC [36.6-38.1 degC] (02/22/15 8:18 AM) Peripheral Pulse 68 bpm Rate [60-100 bpm] (02/22/15 8:18 AM) Blood Pressure 122/80 mmHg [90-140/60-90 mmHg] (02/22/15 8:18 AM) SpO2 99 % (02/22/15 8:18 AM) Problem List Condition Effective Dates Status [...] TWICE DAILY, # 60 unknown unit, eRx: [id number], INHALE ONE DOSE BY MOUTH TWICE DAILY [...] BID, # 56 tabs, 1 Refill(s), Pharmacy: [facility] , 1 tabs Oral BID Start Date: 08/09/15 Stop Date: 10/10/15 Status: Ordered Chantix Starter Pack 0.5 mg-1 mg oral tablet See Instructions, TAKE DIRECTED ON PACKAGE, # 53 tabs, 1 Refill(s), eRx: [facility], TAKE DIRECTED ON PACKAGE Start Date: 08/08/15 Status: Ordered clonazePAM 1 mg oral tablet, disintegrating 1 mg 1 tabs, Oral, Daily, as needed for anxiety, 0 Refill(s) Start Date: 02/01/14 Status: Ordered Dexilant 60 mg oral delayed release capsule See Instructions, 1 caps Oral Daily, # 30 caps, eRx: [id number], 1 caps Oral Daily Start Date: 04/12/15 Status: Ordered Dexilant 60 mg oral delayed release capsule See Instructions, 1 caps Oral Daily, # 30 caps, 5 Refill(s), eRx: [id number], 1 caps Oral Daily Start Date: 05/12/15 Status: Ordered meloxicam 15 mg oral tablet 15 mg 1 tabs, Oral, Daily, # 30 tabs, 0 Refill(s), Pharmacy: [id number], 1 tabs Oral Daily [...] TABLETS PER DAY., # 20 tabs, eRx: [facility], TAKE ONE TABLET BY [...] # 18 unknown unit, 6 Refill(s), eRx: [facility], INHALE TWO PUFFS EVERY [...] pain, # 42 caps, 0 Refill(s), Pharmacy: [facility], 1 caps Oral BID,PRN:as needed for pain Start Date: 06/28/15 Status: Ordered Results Chemistry Most recent to 1 oldest [Reference Range]: Calcium Ionized 1.53 mmol/L [1.19-1.41 mmol/L] *HI* (02/22/15 7:53 AM) PTH (Parathyroid 111.7 pg/mL Hormone) [6.6-88.9 *HI* pg/mL] (02/22/15 7:53 AM) Immunizations Vaccine Date Refusal Reason influenza virus vaccine, inactivated 06/21/15 Procedures Procedure Date Related Diagnosis Body Site Colonoscopy1 05/18/15 COLORECTAL CANCER SCREENING; COLONOSCOPY ON 05/18/15 INDIVIDUAL NOT MEETING CRITERIA FOR HIGH RISK2 Collection of venous blood by venipuncture 02/22/15 bimanual pelvic examination Cystoscopy hydrodistention of bladder SLT laser vaporiz chronic trigon & interstitia tendon reimplant urethral calibration & dilation 1repeat in 10 yrs unless new indications arise per Dr Ritter notes 2Normal, repeat in 10 years Social History Social History Type Response Smoking Status Former smoker; Type: Cigarettes Assessment and Plan Extracted from: Title: Office Visit Note Author: Benigno French REZA Date: 02/22/15 Assessment/Plan Contraception management 1. Since her FSH is inconsistent with menopause I think it's reasonable to restart her on the Nexplanon since she still having her menses and is at risk of becoming . 2. My recommendation would be to wait until we have the ionized calcium and PTH level before deciding to start the Nexplanon. If her levels are normal then we plan on inserting a new device. 3. She will need urine test prior to placement of the device. 4. Patient and her voiced understanding. Ordered: Office Visit Level 4 Est 59921 Elevated calcium levels in blood 1. Serum calcium level was elevated, await ionized calcium level. 2. PTH level is pending. 3. She may also need vitamin D level for further assessment. Ordered: Calcium Ionized PTH Hot flashes As above. Hyperlipidemia 1. Lipid panel demonstrated total cholesterol being slightly elevated at 203, LDL being elevated above 150 and her VLDL being slightly elevated otherwise the rest of her markers are essentially normal. 2. Cardiac risk factor was calculated at 3.7. 3. Recommended continued daily exercise and aggressive healthy lifestyle changes and an effort to improve her risk factors. 4. Tobacco cessation recommended. 5. Recommend continued daily exercise. 6. Recheck fasting lipids in one year. If no improvement in her numbers then we plan on starting her on medium the statin.
--- OUTSIDE RECORDS SUMMARY | 2016-11-15 19:39 | XMS REPORT | Referral Summary ---
Author Author [facility] Organization [facility] Address Unknown Phone Unavailable Care Team Providers Care Tripper Name Role Phone French Pelaez Primary Care Physician [phone] Encounter VC Date(s): 12/14/15 - 12/14/15 [facility] [address] [place] [address] [facility] Discharge Diagnosis: Hyperparathyroidism Discharge Disposition: 01-Home or Self Care Attending Physician: Kathy Franklin MD Admitting Physician: Kathy Franklin MD Vital Signs Most recent to 1 oldest [Reference Range]: Peripheral Pulse 73 bpm Rate [60-100 bpm] (12/14/15 8:54 AM) Blood Pressure 120/90 mmHg [90-140/60-90 mmHg] (12/14/15 8:54 AM) Problem List Condition Effective Dates [...] itching all over 1Hibiclens - rash Medications Adderall 20 mg oral tablet 20 mg 1 tabs, Oral, BID, 0 Refill(s) Start Date: 09/27/15 Status: Ordered Advair Diskus 250 mcg-50 mcg inhalation powder See Instructions, INHALE ONE DOSE BY MOUTH TWICE DAILY, # 60 unknown unit, eRx: [id number], INHALE ONE DOSE BY MOUTH TWICE DAILY [...] 1 caps Oral Daily, # 30 caps, 2 Refill(s), eRx: [facility], 1 caps Oral Daily Start Date: 11/04/15 Status: Ordered meloxicam 15 mg oral tablet 15 mg 1 tabs, Oral, Daily, # 30 tabs, 0 Refill(s), Pharmacy: [facility], 1 tabs Oral Daily Start Date: 10/27/15 Status: Ordered rizatriptan 10 mg oral tablet See Instructions, TAKE ONE TABLET BY MOUTH AT ONSET OF HEADACHE, MAY REPEAT IN 2 HOURS IF NOT BETTER. MAXIMUM 2 TABLETS PER DAY., # 20 tabs, eRx: [facility], TAKE ONE TABLET BY [...] # 18 unknown unit, 6 Refill(s), eRx: [facility], INHALE TWO PUFFS EVERY [...]
--- OUTSIDE RECORDS SUMMARY | 2016-11-15 19:39 | XMS REPORT | Referral Summary ---
Author Author [facility], Family Medicine Organization [facility] Address Unknown Phone Unavailable Care Team Providers Care Conference Interpreter Name Role Phone French Pelaez Primary Care Physician [phone] Encounter VC Date(s): 06/23/15 - 06/23/15 [facility] [address] [place] [id number] Discharge Diagnosis: Tobacco user Discharge Diagnosis: Epicondylitis elbow, medial Discharge Disposition: 01-Home or Self Care Attending Physician: French Pelaez DO Vital Signs Most recent to 1 oldest [Reference Range]: Temperature Tympanic 36.6 degC [36.6-38.1 degC] (06/23/15 8:16 AM) Peripheral Pulse 74 bpm Rate [60-100 bpm] (06/23/15 8:16 AM) Blood Pressure 124/80 mmHg [90-140/60-90 mmHg] (06/23/15 8:16 AM) Problem List Condition Effective Dates Status [...] TWICE DAILY, # 60 unknown unit[facility] INHALE ONE DOSE BY MOUTH TWICE DAILY [...] Daily, # 30 caps, 2 Refill(s), eRx: [facility], 1 caps Oral Daily Start Date: 11/04/15 Status: Ordered meloxicam 15 mg oral tablet 15 mg 1 tabs, Oral, Daily, # 30 tabs, 0 Refill(s), Pharmacy: [facility], 1 tabs Oral Daily Start Date: 10/27/15 Status: Ordered rizatriptan 10 mg oral tablet See Instructions, TAKE ONE TABLET BY MOUTH AT ONSET OF HEADACHE, MAY REPEAT IN 2 HOURS IF NOT BETTER. MAXIMUM 2 TABLETS PER DAY., # 20 tabs, 0 Refill(s), Pharmacy: [facility] 2428, TAKE ONE TABLET BY MOUTH AT ONSET OF HEADACHE , MAY REPEAT IN 2... Start Date: 12/19/15 Stop Date: 01/18/16 Status: Ordered temazepam 15 mg oral capsule 1 caps, Oral, Bedtime (once a day), as needed for sleep, 0 Refill(s) Start Date: 02/01/14 Status: Ordered Ventolin HFA 90 mcg/inh inhalation aerosol See Instructions, INHALE TWO PUFFS EVERY 4 TO 6 HOURS NEEDED, # 18 unknown unit, 6 Refill(s), eRx: [facility], INHALE TWO PUFFS EVERY [...] Visit Note Author: French Pelaez DO Date: 06/23/15 Assessment/Plan Epicondylitis elbow, medial Pathophysiology of this presentation, and differential diagnosis, discussed in detail with the patient and her who was present. All questions were answered. 1. Tennis elbow strap recommended. 2. Zorvolex 18 mg twice a day, samples given for 6 days. If this dose is adequate then we will refill the medication for 2-3 months. If she does not get good relief then we may increase the higher dosing of the medication. 3. Handout provided with stretching exercises 4. Follow-up if worsening presentation or no improvement. Ordered: Office Visit Level 4 Est [address]98[address] Tobacco user 1. Patient was commended on her decision regarding smoking cessation. 2. She was started on Chantix starter pack take as directed. We will refill the medication as needed for the next 12 months. 3. Handout provided regarding smoking cessation. Ordered: Office Visit Level 4 Est 84231 Orders: varenicline, 1 tabs, Oral, BID, as directed on package labeling, # 53 tabs, 0 Refill(s), Pharmacy: [facility]29 Extracted from: Title: Ambulatory Patient Education Author: French Pelaez DO Date: 06/23/15 Family Medicine Parar de fumar (Smoking Cessation) Parar de fumar importante para sua sade e possui muitas vantagens. Entretanto, nem sempre fcil parar, pois a nicotina jazmine substncia muito viciante. Frequentemente, as pessoas tentam 3 vezes ou mais antes de conseguirem abandonar o hbito. Karol documento explica as melhores maneiras para se preparar para abandonar o tabagismo. Parar de fumar exige um trabalho rduo e muito esforo, mas totalmente possvel. VANTAGENS DE PARAR DE FUMAR Voc viver mais, se sentir melhor e viver e melhor. Seu corpo sentir o impacto de parar de fumar quase que imediatamente. Em 20 minutos, a presso sangunea nkechi. Seu pulso retorna ao nvel normal. Aps 8 horas, os nveis de monxido de carbono no sangue retornam ao normal. Seu nvel de oxignio aumenta. Aps 24 horas, a chance de ter um infarto do miocrdio comea a cair. Sua respirao, cabelo e corpo deixam de cheirar a fumaa. Aps 48 horas, as terminaes nervosas comeam a se recuperar dos danos sofridos. Seus sentidos de sabor e cheiro melhoram. Aps 72 horas, o corpo fica virtualmente livre da nicotina. Seus tubos bronquiais relaxam e a respirao se torna mais fcil. Aps 2 a 12 semanas, os pulmes conseguem reter mais ar. Os exerccios se tornam mais fceis e a circulao melhora. O risco de sofrer um infarto do miocrdio, AVC, cncer ou doena pulmonar diminuem bastante. Aps 1 ano, o risco de doena cardaca reduz pela metade. Aps 5 anos, o risco de um AVC se torna o mesmo que o de um no fumante. Aps 10 anos, o risco de cncer pulmonar reduzido pela metade e o risco de outros cnceres reduz significativamente. Aps 15 anos, o risco de doena cardaca nkechi, geralmente ao nvel de um no fumante. No francoise de gestantes, parar de fumar aumenta as chances de ter um beb saudvel. As pessoas com quem voc torres, principalmente as crianas, ficaro mais saudveis. Voc ter dinheiro extra para gastar com outras coisas hanna do cigarro. QUESTES A SE PENSAR ANTES DE TENTAR PARAR DE FUMAR Voc pode querer conversar com seu mdico sobre suas respostas. Por que voc quer parar? Quando tentou parar no passado, o que ajudou e o que no ajudou? Quais sero as situaes mais difceis depois que voc parar de fumar ? Brimson pretende lidar com elas? Quem poder ajud-lo nos momentos difceis? Sua famlia? Amigos? Seu m dico? Quais sensaes de prazer o fumo proporciona a voc? De que forma voc poder obter prazer se parar de fumar? Aqui esto algumas perguntas para fazer a seu mdico. Mike voc pode me ajudar a ter sucesso? Quais medicamentos voc libertad que seriam os melhores para zaire e mike mere tash-los? O que mere fazer se precisar de mais ajuda? Mike a abstinncia ao fumo? Brimson milana obter informaes sobre a abstinncia? PREPARE-SE Defina jazmine data para parar. Mude seu ambiente se livrando de todos os cigarros, cinzeiros, fsforos e isqueiros em sua casa, yamilka ou trabalho. No deixe ningum fumar em sua casa. Janet suas tentativas anteriores de parar. Pense no que funcionou e no que no funcionou. OBTENHA APOIO E INCENTIVO As chances de sucesso so maiores se voc tiver ajuda. possvel obter apoio de vrias formas: Clementine sua famlia, aos seus amigos e colegas de trabalho que voc vai parar e precisa do apoio deles. Pea para que no fumem perto de voc. Obtenha aconselhamento individual, em grupos ou por telefone. Alguns hospitais e centros de sade contam com programas para esse fim. Ligue para um rgo de sade perto de voc para conhecer os programas existentes na sua regio. Crenas e prticas espirituais podem ajudar alguns fumantes a parar. Faa o download de um "medidor rpido" no seu computador para manter um registro mendoza estatsticas de lennon, mike, por exemplo, quanto tempo voc est rima fumar, cigarros no fumados e dinheiro economizado. Compre livros de autoajuda sobre mike parar de fumar e ficar longe do tabaco. APRENDA MARILEE HABILIDADES E COMPORTAMENTOS Tente se distrair quando tiver vontade de fumar. Malott com algum, fa a jazmine caminhada ou se ocupe com alguma tarefa. Mude sua rotina normal. Use um caminho diferente para ir ao trabalho. Charlene ch em vez de caf. [place] o caf da alon em um lugar diferente. Reduza o estresse. [place] um banho quente, exercite-se ou solomon um livro. Planeje algo agradvel para fazer todos os frederick. Recompense-se por no fumar. Explore programas interativos baseados na internet especializados no abandono do tabagismo. COMPRE MEDICAMENTOS E USE-OS CORRETAMENTE Os medicamentos podem ajudar voc a parar de fumar e diminuir a vontade de fumar. A combinao de medicamentos com os mtodos comportamentais e de apoio acima mencionados podem aumentar muito as chances de sucesso em parar de fumar. A terapia de substituio da nicotina ajuda a livrar seu corpo won substncia rima os efeitos negativos e os riscos do fumo. A terapia de substitui o da nicotina inclui chicletes, tabletes, inaladores, sprays nasais e emplastros de nicotina. Alguns podem estar disponveis rima receita mdica e outros exigem prescrio. Antidepressivos ajudam as pessoas a se abster do tabaco, mas no se sabe mike isso funciona. Esses medicamentos esto disponveis com prescrio. O medicamento agonista parcial do receptor de nicotina simula o efeito da nicotina no crebro. Esse medicamento est disponvel sob prescrio. Pea orientaes a seu mdico sobre quais medicamentos usar e mike us-los com base em seu histrico de sade. Seu mdico dir quais efeitos colaterais observar se voc escolher um medicamento ou terapia. Solomon atentamente as informaes da bula. No use nenhum outro produto contendo nicotina enquanto utilizar um produto de substituio da nicotina. RECADA OU SITUAES DIFCEIS A maioria mendoza recadas ocorre nos 3 primeiros meses depois que se para de fumar. No fique desestimulado se comear a fumar novamente. Lembre-se: a maioria mendoza pessoas tenta vrias vezes antes de finalmente parar. Voc pode ter sintomas da abstinncia porque seu corpo est acostumado nicotina. Voc pode desejar fumar cigarros, ficar irritado, sentir raiva, tossir com frequ ncia, ter jag de cabea ou dificuldades de concentrao. Os sintomas de abstinncia so somente temporrios. Eles so mais jerson quando acontece a primeira lennon, mas desaparecem em 10 a 14 frederick. Para reduzir as chances de recada, tente o seguinte: Evite ingerir bebidas alcolicas. Beber diminui suas chances de sucesso. Reduza a quantidade de cafena que consome. Depois que voc para de fumar , a quantidade de cafena no seu corpo aumenta e pode produzir sintomas, mike um batimento cardaco mais rpido, sudorese e ansiedade. Ficar perto de algum fumando pode fazer com que voc tenha vontade de fumar. No deixe que o ganho de peso o distraia. Muitos fumantes ganham peso depois de parar de fumar, normalmente menos de 5 kg. Mantenha jazmine dieta marlen daniel e faa atividades fsicas. Voc pode sempre perder o peso que ganhou ap s parar. Encontre maneiras de melhorar seu humor que sejam diferentes de fumar. PARA OBTER MAIS INFORMAES www.smokefree.gov Document Released: 08/12/2006 Document Revised: 12/27/2014 ExitCare Patient Information 2015 [employer]. This information is not intended to replace advice given to you by your health care provider. Make sure you discuss any questions you have with your health care provider. Mike parar de fumar, dicas para o sucesso (Smoking Cessation, Tips for Success) Se voc estiver pronto para parar de fumar, parabns! Voc optou por se ajudar a ser mais saudvel. O cigarro introduz nicotina, alcatro, monxido de carbono e outras substncias irritantes no seu corpo. Seus pulmes, anjum o e vasos sanguneos podero funcionar melhor rima esses venenos. H diversas maneiras diferentes de parar de fumar. Chicletes de nicotina, adesivos de nicotina, inaladores e sprays nasais de nicotina podem ajudar com a depend ncia fsica. Hipnose, grupos de apoio e medicamentos podem interromper o h bito de fumar. O QUE MILANA FAZER PARA TORNAR MAIS FCIL PARAR DE FUMAR? Seguem algumas dicas para ajud-lo a parar definitivamente: Escolha jazmine data na qual parar definitivamente de fumar. Informe todos os seus amigos e a sua famlia sobre seu plano de parar nesse jason. No tente diminuir gradualmente o nmero de cigarros que voc fuma. Escolha jazmine data e pare completamente nesse jason. Jogue fora todos os cigarros. Limpe e remova todos os cinzeiros da casa, do trabalho e do yamilka. Escreva suas razes para parar de fumar em um carto. Carregue esse cart o com voc e solomon-o quando sentir vontade de fumar. Limpe seu organismo da nicotina. Charlene bastante gua e lquidos para manter a urina larry ou amarelo-plida. Faa isso aps parar para expelir a nicotina do organismo. Aprenda a prever os seus humores. No deixe que situaes ruins se tornem desculpas para fumar um cigarro. Algumas situaes da adina podem tent -lo a fumar. Nunca fume "s mais um" cigarro. Isso jil com que voc queira fumar outro e mais outro. Lembre-se da sua deciso de parar. Mude hbitos associados ao fumo. Se voc fumava ao dirigir ou quando se sentia estressado, tente outras atividades que substituam o fumo. Fique de p ao beber seu caf. Escove os dentes aps comer. Sente-se em jazmine poltrona diferente ao ler o jornal. Evite o lcool enquanto estiver tentando parar de fumar e charlene menos bebidas cafeinadas. O lcool e a cafena podem despertar sua vontade de fumar. Evite alimentos e bebidas que possam disparar a vontade de fumar, mike alimentos aucarados ou temperados e o lcool. Pea s pessoas que fumam para no fumar perto de voc. Planeje alguma coisa para fazer logo aps comer ou beber caf. Planeje jerry jazmine caminhada ou fazer exerccios, por exemplo. Tente um exerccio de relaxamento e reduo do estresse. Lembre-se: voc pode ficar tenso e nervoso gretel primeiras duas semanas aps parar, mas isso passar. Encontre marilee atividades para manter as mos ocupadas. Brinque com jazmine caneta, moeda ou elstico. Faa rabiscos ou desenhos em um papel. Escove os dentes logo aps comer. Isso ajudar a reduzir o desejo pelo gosto de tabaco aps as refeies. Voc tambm pode tentar colutrios bucais. Use substitutos orais no lugar dos cigarros. Tente gotas de suco de limo , cenouras, lascas de leann ou chicletes. Mantenha-os mo para que eles estejam disponveis quando voc sentir vontade de fumar. Quando sentir vontade de fumar, tente respirar fundo. Declare sua casa jazmine kandi rima fumo. Francoise voc fume muito, pea a seu mdico jazmine prescrio para chicletes de nicotina. Eles podem ajudar com a sndrome de abstinncia. Premie-se. Junte o dinheiro que voc poupar ao no comprar cigarros e d um presente a voc mesmo. Busque apoio em outras pessoas. Associe-se a um ana de apoio ou programa para parar de fumar. Pea a algum em casa ou no trabalho para ajud-lo com seu plano de parar de fumar. Pergunte a voc mesmo: "Preciso desse cigarro ou isso s um reflexo?" Diga a voc mesmo: "Hoje escolho no fumar" ou "No arlen fumar". Voc estar se lembrando da sua deciso de parar. No substitua os cigarros por cigarros eletrnicos (tambm conhecidos mike e-cigarros). No se sabe se os cigarros eletrnicos so seguros e alguns podem conter substncias qumicas prejudiciais. Francoise tenha jazmine recada, no desista! Faa um planejamento e pense que no que far da prxima vez que sentir vontade de fumar. MIKE ME SENTIREI QUANDO PARAR DE FUMAR? Voc poder ter sintomas de abstinncia porque seu corpo est acostumado nicotina (a substncia causadora de dependncia dos cigarros). Voc pode desejar fumar cigarros, ficar irritado, sentir raiva, tossir com frequncia, ter jag de cabea ou dificuldades de concentrao. Os sintomas de abstin ncia so somente temporrios. Eles so mais jerson assim que voc para, mas desaparecem em 10 a 14 frederick. Quando sintomas de abstinncia ocorrerem, no perca o controle. Pense gretel suas razes para parar. Lembre-se que esses so sinais de que seu corpo est se curando e se habituando a ficar rima cigarros. Lembre-se de que os sintomas de abstinncia so mais fceis de tratar que as principais doenas que o fumo pode causar. Mesmo depois que a sndrome de abstinncia acabar, espere sentir periodicamente vontade de fumar. Esses desejos, contudo, em jane tero adina curta e desaparecero quer voc fume, quer no. No fume! QUE RECURSOS ESTO DISPONVEIS PARA ME AJUDAR A PARAR DE FUMAR? Seu mdico poder encaminh-lo a recursos comunitrios ou hospitais onde possvel obter apoio, o que pode incluir: Grupos de apoio. Informaes. Hipnose. Terapia. Document Released: 12/29/2009 Document Revised: 12/27/2014 [employer] Patient Information 2015 [facility]. This information is not intended to replace advice given to you by your health care provider. Make sure you discuss any questions you have with your health care provider. Tendinite (Tendinitis) A tendinite um inchao e inflamao dos tendes. Os tendes so tecidos semelhantes a faixas que conectam o msculo ao osso. A tendinite comumente ocorre em: Ombros (manguito rotador). [place] (tendo de Nacho). Cotovelos (tendo do trceps). CAUSAS A tendinite geralmente causada pelo uso excessivo dos tendes, msculos e articulaes envolvidos. Quando o tecido que recobre o tendo (sinvia) se inflama, chamado de tenossinovite. A tendinite comumente ocorrem em pessoas cujos trabalhos exitem movimentos repetitivos. SINTOMAS Jag. Sensibilidade. Inchao moderado. DIAGNSTICO A tendinite normalmente diagnosticada por um exame fsico. Seu mdico tamb m pode e solicitar um exame de raios-X ou outros exames de imagem. TRATAMENTO Seu mdico pode recomendar certos medicamentos ou exerccios para o tratamento. INSTRUES PARA TRATAMENTO DOMICILIAR Use jazmine tipoia ou gesso pelo perodo orientado pelo seu mdico at que a jag diminua. Coloque timothy na kandi afetada. Coloque timothy em jazmine sacola plstica. Coloque jazmine toalha entre a pele e a sacola. Deixe o timothy por 15 a 20 minutos, 3 a 4 vezes por jason ou conforme orientado pelo seu mdico. Evite o uso do membro enquanto o tendo estiver dolorido. Realize um conjunto de movimentos leves de exerccios de movimento somente conforme orientado pelo seu mdico. Interrompa os exerccios francoise a jag ou o desconforto aumentem, exceto francoise orientado pelo seu mdico. Somente tome medicamentos de venda livre ou vendidos com prescrio para jag, desconforto ou febre conforme indicao do seu mdico. PROCURE UM MDICO SE: Sua jag ou inchao aumentarem. Aparecem sintomas novos e inexplicveis, principalmente maior dormncia mendoza mos. CERTIFIQUE-SE DE: Compreender estas instrues. Observar o seu estado de sade. Procurar um mdico imediatamente se no se sentir bem ou piorar. Document Released: 08/12/2006 Document Revised: 12/27/2014 ExitCare Patient Information 2015 [facility]. This information is not intended to replace advice given to you by your health care provider. Make sure you discuss any questions you have with your health care provider. Medial Epicondylitis (Golfer's Elbow) with Rehab Medial epicondylitis involves inflammation and pain around the inner (medial) portion of the elbow. This pain is caused by inflammation of the tendons in the forearm that flex (bring down) the wrist. Medial epicondylitis is also called golfer's elbow, because it is common among golfers. However, it may occur in any individual who flexes the wrist regularly. If medial epicondylitis is left untreated, it may become a chronic problem. SYMPTOMS Pain, tenderness, or inflammation over the inner (medial) side of the elbow. Pain or weakness with gripping activities. Pain that increases with wrist twisting motions (using a screwdriver, playing golf, bowling). CAUSES Medial epicondylitis is caused by inflammation of the tendons that flex the wrist. Causes of injury may include: Chronic, repetitive stress and strain to the tendons that run from the wrist and forearm to the elbow. Sudden strain on the forearm, including wrist snap when serving balls with racquet sports, or throwing a baseball. RISK INCREASES WITH: Sports or occupations that require repetitive and/or strenuous forearm and wrist movements (pitching a baseball, golfing, carpentry). Poor wrist and forearm strength and flexibility. Failure to warm up properly before activity. Resuming activity before healing, rehabilitation, and conditioning are complete. PREVENTION Warm up and stretch properly before activity. Maintain physical fitness: Strength, flexibility, and endurance. Cardiovascular fitness. Wear and use properly fitted equipment. Learn and use proper technique and have a soccer coach correct improper technique. Wear a tennis elbow (counterforce) brace. PROGNOSIS The course of this condition depends on the degree of the injury. If treated properly, acute cases (symptoms lasting less than 4 weeks) are often resolved in 2 to 6 weeks. Chronic (longer lasting cases) often resolve in 3 to 6 months, but may require physical therapy. RELATED COMPLICATIONS Frequently recurring symptoms, resulting in a chronic problem. Properly treating the problem the first time decreases frequency of recurrence. Chronic inflammation, scarring, and partial tendon tear, requiring surgery. Delayed healing or resolution of symptoms. TREATMENT Treatment first involves the use of ice and medicine, to reduce pain and inflammation. Strengthening and stretching exercises may reduce discomfort, if performed regularly. These exercises may be performed at home, if the condition is an acute injury. Chronic cases may require a referral to a physical therapist for evaluation and treatment. Your caregiver may advise a corticosteroid injection to help reduce inflammation. Rarely, surgery is needed. MEDICATION If pain medicine is needed, nonsteroidal anti-inflammatory medicines ( aspirin and ibuprofen), or other minor pain relievers (acetaminophen), are often advised. Do not take pain medicine for 7 days before surgery. Prescription pain relievers may be given, if your caregiver thinks they are needed. Use only as directed and only as much as you need. Corticosteroid injections may be recommended. These injections should be reserved only for the most severe cases, because they can only be given a certain number of times. HEAT AND COLD Cold treatment (icing) should be applied for 10 to 15 minutes every 2 to 3 hours for inflammation and pain, and immediately after activity that aggravates your symptoms. Use ice packs or an ice massage. Heat treatment may be used before performing stretching and strengthening activities prescribed by your caregiver, physical therapist, or lead trainer. Use a heat pack or a warm water soak. SEEK MEDICAL CARE IF: Symptoms get worse or do not improve in 2 weeks, despite treatment. EXERCISES RANGE OF MOTION (ROM) AND STRETCHING EXERCISES - Epicondylitis, Medial (Golfer' s Elbow) These exercises may help you when beginning to rehabilitate your injury. Your symptoms may go away with or without further involvement from your physician, physical therapist or lead trainer. While completing these exercises, remember: Restoring tissue flexibility helps normal motion to return to the joints. This allows healthier, less painful movement and activity. An effective stretch should be held for at least 30 seconds. A stretch should never be painful. You should only feel a gentle lengthening or release in the stretched tissue. RANGE OF MOTION Wrist Flexion, Active-Assisted Extend your right / left elbow with your fingers pointing down.* Gently pull the back of your hand towards you, until you feel a gentle stretch on the top of your forearm. Hold this position for seconds. Repeat times. Complete this exercise times per day. *If directed by your physician, physical therapist or lead trainer, complete this stretch with your elbow bent, rather than extended. RANGE OF MOTION Wrist Extension, Active-Assisted Extend your right / left elbow and turn your palm upwards.* Gently pull your palm and fingertips back, so your wrist extends and your fingers point more toward the ground. You should feel a gentle stretch on the inside of your forearm. Hold this position for seconds. Repeat times. Complete this exercise times per day. *If directed by your physician, physical therapist or lead trainer, complete this stretch with your elbow bent, rather than extended. STRETCH Wrist Extension Place your right / left fingertips on a tabletop leaving your elbow slightly bent. Your fingers should point backwards. Gently press your fingers and palm down onto the table, by straightening your elbow. You should feel a stretch on the inside of your forearm. Hold this position for seconds. Repeat times. Complete this stretch times per day. STRENGTHENING EXERCISES - Epicondylitis, Medial (Golfer's Elbow) These exercises may help you when beginning to rehabilitate your injury. They may resolve your symptoms with or without further involvement from your physician, physical therapist or lead trainer. While completing these exercises, remember: Muscles can gain both the endurance and the strength needed for everyday activities through controlled exercises. Complete these exercises as instructed by your physician, physical therapist or lead trainer. Increase the resistance and repetitions only as guided. You may experience muscle soreness or fatigue, but the pain or discomfort you are trying to eliminate should never worsen during these exercises. If this pain does get worse, stop and make sure you are following the directions exactly. If the pain is still present after adjustments, discontinue the exercise until you can discuss the trouble with your caregiver. STRENGTH Wrist Flexors Sit with your right / left forearm palm-up, and fully supported on a table or countertop. Your elbow should be resting below the height of your shoulder. Allow your wrist to extend over the edge of the surface. Loosely holding a weight, or a piece of rubber exercise band or tubing, slowly curl your hand up toward your forearm. Hold this position for seconds. Slowly lower the wrist back to the starting position in a controlled manner. Repeat times. Complete this exercise times per day. STRENGTH Wrist Extensors Sit with your right / left forearm palm-down and fully supported. Your elbow should be resting below the height of your shoulder. Allow your wrist to extend over the edge of the surface. Loosely holding a weight, or a piece of rubber exercise band or tubing, slowly curl your hand up toward your forearm. Hold this position for seconds. Slowly lower the wrist back to the starting position in a controlled manner. Repeat times. Complete this exercise times per day. STRENGTH - Ulnar Deviators Stand with a weight in your right / left hand, or sit while holding a rubber exercise band or tubing, with your healthy arm supported on a table or countertop. Move your wrist so that your pinkie travels toward your forearm and your thumb moves away from your forearm. Hold this position for seconds and then slowly lower the wrist back to the starting position. Repeat times. Complete this exercise times per day STRENGTH - Bulk Pallet Builder Grasp a tennis ball, a dense sponge, or a large, rolled sock in your hand. Squeeze as hard as you can, without increasing any pain. Hold this position for seconds. Release your computer programmer chief slowly. Repeat times. Complete this exercise times per day. STRENGTH Forearm Supinators Sit with your right / left forearm supported on a table, keeping your elbow below shoulder height. Rest your hand over the edge, palm down. Gently computer programmer chief a hammer or a soup ladle. Without moving your elbow, slowly turn your palm and hand upward to a "thumbs-up" position. Hold this position for seconds. Slowly return to the starting position. Repeat times. Complete this exercise times per day. STRENGTH Forearm Pronators Sit with your right / left forearm supported on a table, keeping your elbow below shoulder height. Rest your hand over the edge, palm up. Gently computer programmer chief a hammer or a soup ladle. Without moving your elbow, slowly turn your palm and hand upward to a "thumbs-up" position. Hold this position for seconds. Slowly return to the starting position. Repeat times. Complete this exercise times per day. Document Released: 08/12/2006 Document Revised: 11/03/2012 Document Reviewed: ExitCare Patient Information 2015 [employer], [facility]. This information is not intended to replace advice given to you by your health care provider. Make sure you discuss any questions you have with your health care provider. No follow up information was provided.
--- OUTSIDE RECORDS SUMMARY | 2016-11-15 19:39 | XMS REPORT | Referral Summary ---
Author Author [facility], Family Medicine Organization [facility] Address Unknown Phone Unavailable Care Team Providers Care Process Control Supervisor Name Role Phone French Pelaez Primary Care Physician [phone] Encounter VC Date(s): 08/21/16 - 08/21/16 [facility] [address] [place] [address] Discharge Diagnosis: Medication management Discharge Diagnosis: HTN (hypertension) Discharge Diagnosis: Classic migraine Discharge Disposition: 01-Home or Self Care Attending Physician: French Pelaez DO Admitting Physician: French Pelaez DO Vital Signs Most recent to 1 oldest [Reference Range]: Peripheral Pulse 88 bpm Rate [60-100 bpm] (08/21/16 4:30 PM) Respiratory Rate 18 br/min [14-20 br/min] (08/21/16 4:30 PM) Blood Pressure 158/112 mmHg [90-140/60-90 mmHg] *HI* (08/21/16 4:30 PM) SpO2 98 % (08/21/16 4:30 PM) Problem List Condition Effective Dates Status [...] 0 Refill(s) Start Date: 01/25/16 Status: Ordered Advair Diskus 250 mcg-50 mcg inhalation powder See Instructions, INHALE ONE DOSE BY MOUTH TWICE DAILY, # 60 unknown unit, eRx: [facility], INHALE ONE DOSE BY MOUTH [...] DAILY, # 30 caps, 5 Refill(s), Pharmacy: [facility], TAKE ONE CAPSULE BY MOUTH ONCE DAILY Start Date: 08/17/16 Status: Ordered Fioricet oral tablet 1 tabs, Oral, q4hr, as needed for pain, # 40 tabs, 3 Refill(s), Pharmacy: [facility] Start Date: 08/21/16 Status: Ordered lisinopril-hydrochlorothiazide 20 mg-12.5 mg oral tablet 1 tabs, Oral, Daily, # 30 tabs, 2 Refill(s), Pharmacy: [facility] Start Date: 08/21/16 Stop Date: 11/19/16 Status: Ordered temazepam 15 mg oral capsule 15 mg 1 caps, Oral, Bedtime (once a day), as needed for sleep, # 30 caps, 0 Refill(s), other reason (Rx) Start Date: 08/21/16 Stop Date: 09/21/16 Status: Ordered Ventolin HFA 90 mcg/inh inhalation aerosol See Instructions, INHALE TWO PUFFS EVERY 4 TO 6 HOURS NEEDED, # 18 unknown unit, 6 Refill(s), [facility], INHALE TWO PUFFS EVERY 4 TO 6 HOURS NEEDED Start Date: 03/04/15 Status: Ordered Viibryd 40 mg oral tablet mg tabs, Oral, Daily, 0 Refill(s) Start Date: 07/10/16 Status: Ordered Wellbutrin XL 300 mg/24 hours oral tablet, extended release 300 mg 1 tabs, Oral, Daily, # 30 tabs, 1 Refill(s), Pharmacy: [facility], 1 tabs Oral Daily Start Date: 07/11/16 Status: Ordered Zantac 150 mg, Oral, Bedtime (once a day), 0 Refill(s) Start Date: 05/17/14 Status: Ordered Results No data available for this section Immunizations Given and Recorded Vaccine Date Status Refusal Reason influenza virus vaccine, inactivated 06/21/15 Given Procedures Procedure Date Related Diagnosis Body [...] Visit Note Author: French Pelaez DO Date: 08/21/16 Assessment/Plan 1.Classic migraine 1. Continue with Fioricet as needed. 2. Follow-up for worsening presentation. HTN (hypertension) 1. Avoid NSAIDs and rizatriptan. 2. Low salt diet recommended. 3. Lisinopril/hydrochlorothiazide, 20/12.5, one tablet daily. 4. Follow-up in 2 weeks for reevaluation. Ordered: lisinopril-hydroCHLOROthiazide, 1 tabs, Oral, Daily, # 30 tabs, 2 Refill(s) , Pharmacy: [facility] Office Visit Level 4 Est 70547 Medication management 1. Medication reviewed. 2. I recommended that she takes in all her medications to her next psychiatric visit for them to review medications and dosing.
--- OUTSIDE RECORDS SUMMARY | 2016-11-15 19:39 | XMS REPORT | Referral Summary ---
Author Author [facility], Family Medicine Organization [facility] Address Unknown Phone Unavailable Care Team Providers Care Human Capital Manager Name Role Phone French Pelaez Primary Care Physician [phone] Encounter VC Date(s): 05/16/15 - 05/16/15 [facility] [address] [place] [id number] Discharge Diagnosis: Medial epicondylitis of right elbow Discharge Disposition: 01-Home or Self Care Attending Physician: French Pelaez DO Admitting Physician: French Pelaez DO Vital Signs Most recent to 1 oldest [Reference Range]: Temperature Tympanic 36.8 degC [36.6-38.1 degC] (05/16/15 3:30 PM) Peripheral Pulse 64 bpm Rate [60-100 bpm] (05/16/15 3:30 PM) Blood Pressure 138/90 mmHg [90-140/60-90 mmHg] (05/16/15 3:30 PM) Problem List Condition Effective Dates Status [...] TWICE DAILY, # 60 unknown unit, eRx: [facility], INHALE ONE DOSE BY MOUTH [...] 0 Refill(s) Start Date: 02/01/14 Status: Ordered cyclobenzaprine 10 mg oral tablet 10 mg 1 tabs, Oral, Bedtime (once a day), as needed for spasm, X 30 days, # 30 tabs, 0 Refill(s), Pharmacy: [facility], 1 tabs Oral Bedtime (once a day),x30 days,PRN:as needed for spasm Start Date: 10/27/15 Stop Date: 11/26/15 Status: Ordered Dexilant 60 mg oral delayed release capsule See Instructions, 1 caps Oral Daily, # 30 caps, 2 Refill(s), eRx: [facility], 1 caps Oral Daily Start Date: 11/04/15 Status: Ordered meloxicam 15 mg oral tablet 15 mg 1 tabs, Oral, Daily, # 30 tabs, 0 Refill(s), Pharmacy: [facility], 1 tabs Oral Daily Start Date: 10/27/15 Status: Ordered rizatriptan 10 mg oral tablet See Instructions, TAKE ONE TABLET BY MOUTH AT ONSET OF HEADACHE, MAY REPEAT IN 2 HOURS IF NOT BETTER. MAXIMUM 2 TABLETS PER DAY., # 20 tabs, eRx: [facility], TAKE ONE TABLET BY MOUTH [...] # 18 unknown unit, 6 Refill(s), eRx: [facility], INHALE TWO PUFFS EVERY 4 [...] Visit Note Author: French Pelaez DO Date: 05/16/15 Assessment/Plan Medial epicondylitis of right elbow Pathophysiology of this presentation, and differential diagnosis, discussed in detail with the patient. All questions were answered. 1. Taper dose prednisone over 15 days. 2. Tylenol at thousand milligrams every 8 hours as needed for pain. 3. If no improvement then we may consider steroid injection. Ordered: Office Visit Level 3 Est 77933 Orders: predniSONE, See Instructions, 5 daily for 3 days, then 4 daily for 3 days, then 3 daily for 3 days, then 2 daily for 3 days, then one tab daily for 3 days, # 45 tabs, 0 Refill(s), Pharmacy: [facility], 5 daily for 3 days, then 4 daily for 3 days, then...
--- OUTSIDE RECORDS SUMMARY | 2016-11-15 19:39 | XMS REPORT | Referral Summary ---
Author Author [facility], Family Medicine Organization [facility] Address Unknown Phone Unavailable Care Team Providers Care Shuttler Car Name Role Phone French Pelaez Primary Care Physician [phone] Encounter VC Date(s): 04/12/16 - 04/12/16 [facility], [address] [place] [id number] Discharge Disposition: 01-Home or Self Care Attending Physician: French Pelaez DO Admitting Physician: French Pelaez DO Referring Physician: French Pelaez DO Vital Signs Most recent to 1 oldest [Reference Range]: Temperature Tympanic 36.9 degC [36.6-38.1 degC] (04/12/16 2:06 PM) Peripheral Pulse 107 bpm Rate [60-100 bpm] *HI* (04/12/16 2:06 PM) Respiratory Rate 17 br/min [14-20 br/min] (04/12/16 2:06 PM) Blood Pressure 140/100 mmHg [90-140/60-90 mmHg] (04/12/16 2:06 PM) SpO2 97 % (04/12/16 2:06 PM) Problem List Condition Effective Dates Status [...] TWICE DAILY, # 60 unknown unit, eRx: [facility], INHALE ONE DOSE BY [...] DAILY, # 30 caps, 5 Refill(s), eRx: [facility], TAKE ONE CAPSULE BY MOUTH ONCE DAILY Start Date: 02/02/16 Status: Ordered Fetzima 40 mg oral capsule, extended release mg caps, Oral, Daily, 0 Refill(s) Start Date: 04/04/16 Status: Ordered rizatriptan 10 mg oral tablet See Instructions, TAKE ONE TABLET BY MOUTH AT ONSET OF HEADACHE, MAY REPEAT IN 2 HOURS IF NOT BETTER. MAXIMUM OF 2 TABLETS PER DAY., # 20 tabs, eRx: [facility], TAKE ONE TABLET BY [...] # 18 unknown unit, 6 Refill(s), eRx: [facility], INHALE TWO PUFFS EVERY 4 TO 6 [...] Cigarettes Assessment and Plan Extracted from: Title: Intractable migraine Author: French Pelaez DO Date: 04/12/16 Assessment/Plan Migraine 1. History and clinical finding consistent with intractable migraine. 2. She was treated in the office with 10 mg of morphine and 25 mg of PhenerganIM. Patient was observed for 30 minutes, prior to dismissal her migraine had decreased from 8 to a 4/10. 3. Follow-up if worsening presentation or recurrence of worsening symptoms. Ordered: Office Visit Level 4 Est 71792 Orders: promethazine, 25 mg, IntraMuscular, Once, First Dose: 04/12/16 18:00: 00 CDT, Stop Date: 04/12/16 18:00:00 CDT
--- OUTSIDE RECORDS SUMMARY | 2016-11-15 19:39 | XMS REPORT | Referral Summary ---
Author Author [facility], Family Medicine Organization [facility] Address Unknown Phone Unavailable Care Team Providers Care Gear Shaper Name Role Phone French Pelaez Primary Care Physician [phone] Encounter VC Date(s): 12/31/14 - 12/31/14 [facility] [address] [place] [id number] Discharge Diagnosis: Medial epicondylitis of left elbow Discharge Diagnosis: Lateral epicondylitis of left elbow Discharge Diagnosis: Hot flashes Discharge Diagnosis: Joint swelling, finger, hand Discharge Diagnosis: Nexplanon removal Discharge Diagnosis: PAIN IN JOINT, SITE UNSPECIFIED Discharge Disposition: 01-Home or Self Care Attending Physician: French Pelaez DO Admitting Physician: French Pelaez DO Vital Signs Most recent to 1 oldest [Reference Range]: Temperature Tympanic 36.6 degC [36.6-38.1 degC] (12/31/14 1:33 PM) Peripheral Pulse 68 bpm Rate [60-100 bpm] (12/31/14 1:33 PM) Blood Pressure 139/90 mmHg [90-140/60-90 mmHg] (12/31/14 1:33 PM) Problem List Condition Effective Dates Status [...] TWICE DAILY, # 60 unknown unit, eRx: [facility], INHALE ONE DOSE BY MOUTH TWICE [...] Refill(s) Start Date: 02/01/14 Status: Ordered Chantix Starter Pack 0.5 mg-1 mg oral tablet 1 tabs, Oral, BID, as directed on package labeling, # 53 tabs, 0 Refill(s), Pharmacy: [place] [id number] Start Date: 06/23/15 Status: Ordered clonazePAM 1 mg oral tablet, disintegrating 1 mg 1 tabs, Oral, Daily, as needed for anxiety, 0 Refill(s) Start Date: 02/01/14 Status: Ordered Dexilant 60 mg oral delayed release capsule See Instructions, 1 caps Oral Daily, # 30 caps, eRx: [facility], 1 caps Oral Daily Start Date: 04/12/15 Status: Ordered Dexilant 60 mg oral delayed release capsule See Instructions, 1 caps Oral Daily, # 30 caps, 5 Refill(s), eRx: [place] [facility] [id number], 1 caps Oral Daily Start Date: 05/12/15 [...] TABLETS PER DAY., # 20 tabs, eRx: [facility], TAKE ONE TABLET BY MOUTH AT [...] # 18 unknown unit, 6 Refill(s), eRx: [facility], INHALE TWO PUFFS [...] caps, Oral, BID, as needed for pain, X 30 days, # 60 caps, 0 Refill(s), Pharmacy: [facility], 1 caps Oral BID,x30 days,PRN:as needed for pain Start Date: 06/28/15 Stop Date: 07/28/15 Status: Ordered Zorvolex 35 mg oral capsule 35 mg 1 caps, Oral, BID, as needed for pain, # 42 caps, 0 Refill(s), Pharmacy: [facility], 1 caps Oral BID,PRN:as needed for pain Start Date: 06/28/15 Status: Ordered Results Hematology Most recent to 1 oldest [Reference Range]: WBC [4.8-10.8 6.8 10*3/uL 10*3/uL] (12/31/14 2:51 PM) RBC [4.00-5.20 4.86 10*6/uL 10*6/uL] (12/31/14 2:51 PM) Hgb [12.0-16.0 15.5 gm/dL gm/dL] (12/31/14 2:51 PM) Hct [37.0-47.0 %] 44.3 % (12/31/14 2:51 PM) MCV [82.0-99.0 fL] 91.2 fL (12/31/14 2:51 PM) MCH [27.0-32.0 pg] 31.9 pg (12/31/14 2:51 PM) MCHC [32.0-36.0 35.0 gm/dL gm/dL] (12/31/14 2:51 PM) RDW [11.5-14.5 %] 13.8 % (12/31/14 2:51 PM) Platelet [150-400 258 10*3/uL 10*3/uL] (12/31/14 2:51 PM) MPV [8.8-14.8 fL] 10.4 fL (12/31/14 2:51 PM) Immature 0.1 % Granulocytes (12/31/14 2:51 PM) [0.0-1.0 %] Neutrophils [51-75 59 % %] (12/31/14 2:51 PM) Lymphocytes [20-46 28 % %] (12/31/14 2:51 PM) Monocytes [4-11 %] 11 % (12/31/14 2:51 PM) Eosinophils [0-4 %] 2 % (12/31/14 2:51 PM) Basophils [0-2 %] 1 % (12/31/14 2:51 PM) Neutro Absolute 3.96 10*3 [1.90-7.00 10*3] (12/31/14 2:51 PM) Lymph Absolute 1.89 10*3 [0.80-3.30 10*3] (12/31/14 2:51 PM) Ada Absolute 0.74 10*3 [0.30-1.00 10*3] (12/31/14 2:51 PM) Eos Absolute 0.11 10*3 [0.00-0.50 10*3] (12/31/14 2:51 PM) Baso Absolute 0.04 10*3 [0.00-0.20 10*3] (12/31/14 2:51 PM) Sed Rate [0-23 8 mm/hr mm/hr] (12/31/14 2:51 PM) Immunizations Vaccine Date Refusal Reason influenza virus vaccine, inactivated 06/21/15 Procedures Procedure Date Related Diagnosis Body Site Colonoscopy1 9/23/15 COLORECTAL CANCER SCREENING; COLONOSCOPY ON 05/18/15 INDIVIDUAL NOT MEETING CRITERIA FOR HIGH RISK2 Collection of venous blood by venipuncture 12/31/14 bimanual pelvic examination Cystoscopy hydrodistention of bladder SLT laser vaporiz chronic trigon & interstitia tendon reimplant urethral calibration & dilation 1repeat in 10 yrs unless new indications arise per Dr Ritter notes 2Normal, repeat in 10 years Social History Social History Type Response Smoking Status Former smoker; Type: Cigarettes Assessment and Plan Extracted from: Title: Office Visit Note Author: French Pelaez DO Date: 12/31/14 Assessment/Plan Hot flashes 1. She may very well be in menopause. 2. Recommended removal of the Nexplanon today and having her schedule her well woman exam after a month. She should have labs to include FSH, LH, TSH drawn at that time. These markers should help us determine whether she is in menopause. Ordered: Office Visit Level 5 Est 11375 Joint swelling, finger, hand 1. History and symptoms are concerning for rheumatoid arthritis 2. Will order CBC, RF, sed-rate and CRP in addition to X-ray of both hands. 3. Diclofenac 35mg bid. Ordered: Office Visit Level 5 Est 18823 Lateral epicondylitis of left elbow 1. Diclofenac 35mg bid. Ordered: Office Visit Level 5 Est 05712 Medial epicondylitis of left elbow 1. Diclofenac 35mg bid. Ordered: Office Visit Level 5 Est 48111 Nexplanon removal Her Nexplanon card was reviewed in it was due to be removed in November 2014. Procedure: Nexplanon removal Indication: The device is Medication: 1.5 mL of one percent lidocaine with epinephrine Description: With the patient laid in the supine position and the left upper extremity abductor that 90 and externally rotated, the implant was identified by palpation in the superficial tissue. The area was cleansed with chlorhexidine given that she is allergic to Betadine. Using a 25-gauge needle, 1.5 mL of one percent lidocaine with epinephrine was infiltrated at the distal tip of the device. Once local anesthesia was achieved, using an 11 blade scalpel a small incision was made in a horizontal manner. The tip of the device was bluntly dissected, it was grasped with a curved hemostat and removed without difficulty. Patient tolerated procedure well, area was cleansed, dry dressing applied and wound care instructions provided. Ordered: Office Visit Level 5 Est 39684 PAIN IN JOINT, SITE UNSPECIFIED As above. Ordered: C-Reactive Protein (CRP) CBC w/ Differential Office Visit Level 5 Est 49771 Rheumatoid Factor Sedimentation Rate XR Hand Complete Bilateral Orders: diclofenac, 1 caps, Oral, BID, as needed for pain, X 30 days, # 60 caps, 3 Refill(s), Pharmacy: [facility], 1 caps Oral BID,x30 days, PRN:as needed for pain
--- OUTSIDE RECORDS SUMMARY | 2016-11-15 19:40 | XMS REPORT | Referral Summary ---
Author Author [facility], Family Medicine Organization [facility] Address Unknown Phone Unavailable Care Team Providers Care Review Scheduling Coordinator Name Role Phone French Pelaez Primary Care Physician [phone] Encounter VC Date(s): 10/27/15 - 10/27/15 [facility], [address] [place] [address] Discharge Diagnosis: Chronic low back pain Discharge Disposition: 01-Home or Self Care Attending Physician: French Pelaez DO Admitting Physician: French Pelaez DO Vital Signs Most recent to 1 oldest [Reference Range]: Temperature Tympanic 36.6 degC [36.6-38.1 degC] (10/27/15 8:11 AM) Peripheral Pulse 88 bpm Rate [60-100 bpm] (10/27/15 8:11 AM) Blood Pressure 127/86 mmHg [90-140/60-90 mmHg] (10/27/15 8:11 AM) Problem List Condition Effective Dates Status [...] TWICE DAILY, # 60 unknown unit, eRx: [facility], INHALE ONE DOSE BY MOUTH TWICE DAILY [...] days, # 30 tabs, 0 Refill(s), Pharmacy: [facility], 1 tabs Oral Bedtime (once a day),x30 days,PRN:as needed for spasm Start Date: 10/27/15 Stop Date: 11/26/15 Status: Ordered Dexilant 60 mg oral delayed release capsule See Instructions, 1 caps Oral Daily, # 30 caps, eRx: [facility], 1 caps Oral Daily Start Date: 04/12/15 Status: Ordered Dexilant 60 mg oral delayed release capsule See Instructions, 1 caps Oral Daily, # 30 caps, 5 Refill(s), eRx: [facility], 1 caps Oral Daily Start Date: 05/12/15 Status: Ordered meloxicam 15 mg oral tablet 15 mg 1 tabs, Oral, Daily, # 30 tabs, 0 Refill(s), Pharmacy: [facility], 1 tabs Oral Daily Start Date: 10/27/15 Status: Ordered rizatriptan 10 mg oral tablet See Instructions, TAKE ONE TABLET BY MOUTH AT ONSET OF HEADACHE, MAY REPEAT IN 2 HOURS IF NOT BETTER. MAXIMUM 2 TABLETS PER DAY., # 20 tabs, eRx: [facility], TAKE ONE TABLET BY [...] # 18 unknown unit, 6 Refill(s), eRx: [facility], INHALE TWO PUFFS EVERY [...] Cigarettes Assessment and Plan Extracted from: Title: Low back pain Author: French Pelaez DO Date: 10/27/15 Assessment/Plan Chronic low back pain 1. Meloxicam and cyclobenzaprine was refilled. 2. Referral to physical therapy. 3. Follow-up after one month of physical therapy. If no improvement then we may consider MRI imaging of her low lumbar spine. Ordered: Office Visit Level 3 Est [id number] Orders: cyclobenzaprine, 10 mg 1 tabs, Oral, Bedtime (once a day), as needed for spasm, X 30 days, # 30 tabs, 0 Refill(s), Pharmacy: [facility], 1 tabs Oral Bedtime (once a day),x30 days,PRN:as needed for spasm meloxicam, 15 mg 1 tabs, Oral, Daily, # 30 tabs, 0 Refill(s), Pharmacy: [facility], 1 tabs Oral Daily
--- OUTSIDE RECORDS SUMMARY | 2016-11-15 19:40 | XMS REPORT | Referral Summary ---
Author Author [facility] Organization [facility] Address Unknown Phone Unavailable Care Team Providers Care Charge Aide Name Role Phone French Pelaez Primary Care Physician [phone] Encounter VC Date(s): 05/28/16 - 05/28/16 [facility] [address] [place] [address] Discharge Diagnosis: Mixed anxiety and depressive disorder Discharge Diagnosis: Acute lower UTI Discharge Diagnosis: Lumbar radiculopathy Discharge Diagnosis: Classic migraine with aura Discharge Disposition: 01-Home or Self Care Attending Physician: French Pelaez DO Admitting Physician: French Pelaez DO Vital Signs Most recent to 1 oldest [Reference Range]: Temperature Tympanic 37.1 degC [36.6-38.1 degC] (05/28/16 10:53 AM) Peripheral Pulse 72 bpm Rate [60-100 bpm] (05/28/16 10:53 AM) Blood Pressure 140/92 mmHg [90-140/60-90 mmHg] (05/28/16 10:53 AM) Problem List Condition Effective Dates Status Health Status Informant Acne(Confirmed) Resolved Allergic rhinitis - Resolved hayfever(Confirmed) Anxiety Resolved disorder(Confirmed) Asthma(Confirmed) Resolved Depression(Confirmed Resolved ) Enthesopathy of hip Active region(Confirmed) Gastritis(Confirmed) Resolved Elevated calcium Active levels in blood(Confirmed) Hyperparathyroidism( Active Confirmed) Insomnia(Confirmed) Resolved Lumbar Active radiculopathy(Confir med) Lumbar [...] 0 Refill(s) Start Date: 02/22/16 Status: Ordered Adderall 30 mg oral tablet 30 mg 1 tabs, Oral, BID, # 60 tabs, 0 Refill(s) Start Date: 05/11/16 Status: Ordered Advair Diskus 250 mcg-50 mcg inhalation powder See Instructions, INHALE ONE DOSE BY MOUTH TWICE DAILY, # 60 unknown unit, eRx: [id number], INHALE ONE DOSE BY [...] 0 Refill(s) Start Date: 02/01/14 Status: Ordered Cipro 500 mg oral tablet 500 mg 1 tabs, Oral, q12hr, X 7 days, # 14 tabs, 0 Refill(s), Pharmacy: [facility], 1 tabs Oral q12hr,x7 days Start Date: 05/28/16 Stop Date: 06/04/16 Status: Ordered clonazePAM 1 mg oral tablet, disintegrating 1 mg 1 tabs, Oral, Daily, as needed for anxiety, 0 Refill(s) Start Date: 02/01/14 Status: Ordered Dexilant 60 mg oral delayed release capsule See Instructions, TAKE ONE CAPSULE BY MOUTH ONCE DAILY, # 30 caps, 5 Refill(s), eRx: [facility], TAKE ONE CAPSULE BY MOUTH ONCE DAILY Start Date: 02/02/16 Status: Ordered Fetzima 40 mg oral capsule, extended release mg caps, Oral, Daily, 0 Refill(s) Start Date: 04/04/16 Status: Ordered Fioricet oral tablet 1 tabs, Oral, q4hr, as needed for pain, # 40 tabs, 0 Refill(s), Pharmacy: [facility] Start Date: 05/28/16 Status: Ordered rizatriptan 10 mg oral tablet See Instructions, TAKE ONE TABLET BY MOUTH AT ONSET OF HEADACHE, MAY REPEAT IN 2 HOURS IF NOT BETTER. MAXIMUM OF 2 TABLETS PER DAY., # 20 tabs, eRx: [facility], TAKE ONE TABLET BY MOUTH AT ONSET OF HEADACHE, MAY REPEAT IN 2 HOURS IF NOT BE... Start Date: 04/03/16 Status: Ordered temazepam 30 mg oral capsule 30 mg 1 caps, Oral, Bedtime (once a day), as needed for sleep, 0 Refill(s) Start Date: 02/22/16 Status: Ordered traMADol 50 mg oral tablet See Instructions, Take 1-2 tabs by mouth every 6 hoursas needed for pain., # 40 tabs, 0 Refill(s) Start Date: 05/24/16 Stop Date: 06/07/16 Status: Ordered Ultram 50 mg oral tablet 50 mg 1 tabs, Oral, q6hr, as needed for pain, # 40 tabs, 0 Refill(s) Start Date: 03/14/16 Status: Ordered Ventolin HFA 90 mcg/inh inhalation aerosol See Instructions, INHALE TWO PUFFS EVERY 4 TO 6 HOURS NEEDED, # 18 unknown unit, 6 Refill(s), eRx: [facility], INHALE TWO PUFFS EVERY [...] Refill(s) Start Date: 05/17/14 Status: Ordered Results Urinalysis Most recent to 1 oldest [Reference Range]: UA Color Yellow (05/28/16 10:45 AM) UA Appear Turbid *ABN* (05/28/16 10:45 AM) UA pH [5.0-8.0] 6.0 (05/28/16 10:45 AM) UA Leuk Est Pos 3+ [Negative] *ABN* (05/28/16 10:45 AM) UA Nitrite Positive [Negative] *ABN* (05/28/16 10:45 AM) UA Protein Trace [Negative] *ABN* (05/28/16 10:45 AM) UA Glucose Negative [Negative] (05/28/16 10:45 AM) UA Ketones Negative [Negative] (05/28/16 10:45 AM) UA Urobilinogen 0.2 mg/dL [<=1.0 mg/dL] (05/28/16 10:45 AM) UA Bili [Negative] Negative (05/28/16 10:45 AM) UA Blood [Negative] Pos 2+ *ABN* (05/28/16 10:45 AM) UA Spec Grav 1.015 [1.003-1.030] (05/28/16 10:45 AM) Type Clean Catch (05/28/16 10:45 AM) UA WBC [0-4 /HPF] >50 /HPF 1 *ABN* (05/28/16 10:45 AM) UA RBC [0-2] 20-50 *ABN* (05/28/16 10:45 AM) UA Bacteria Numerous *ABN* (05/28/16 10:45 AM) 1Result Comment: Packed field Immunizations Vaccine Date Refusal Reason influenza virus vaccine, inactivated 06/21/15 Procedures Procedure Date Related Diagnosis Body Site Bilateral L5-S1 Facet 04/24/16 BILATERAL TROCHANTERIC BURSE/ [...] Visit Note Author: French Pelaez DO Date: 05/28/16 Assessment/Plan 1.Lumbar radiculopathy 1. We will refer her to Dr. Bedolla for farther evaluation of her lumbar radiculopathy 2. Continue with Ultram as needed for pain. 2.Mixed anxiety and depressive disorder 1. Continue with current regimen for her psychiatric management 2. Recommended referral to [facility] for follow her psychiatric management 3. We will continue refilling her psychiatric medications until [facility] takes over. Acute lower UTI 1. History and urine study findings are consistent with urinary tract infection 2. Cipro twice a day for 7 days 3. Follow-up if no improvement Classic migraine with aura 1. Continue with Fioricet as needed for migraine management 2. Avoid triggers 3. I agree with the neurology referral Dysuria As above. 1. This is a very complex patient. Over50 minutes werespent face-to- face with the patient and her today.
--- OUTSIDE RECORDS SUMMARY | 2016-11-15 19:40 | XMS REPORT | Referral Summary ---
Author Author [facility], [facility] Organization [facility] Address Unknown Phone Unavailable Care Team Providers Care Cupola Patcher Helper Name Role Phone French Pelaez Primary Care Physician [phone] Encounter VC Date(s): 01/25/16 - 01/25/16 [facility] [address] [place] [id number] Discharge Diagnosis: Classic migraine Discharge Diagnosis: Lumbar radiculopathy Discharge Diagnosis: Keratosis, seborrheic Discharge Diagnosis: Bite, insect Discharge Disposition: 01-Home or Self Care Attending Physician: French Pelaez DO Admitting Physician: French Pelaez DO Vital Signs Most recent to 1 oldest [Reference Range]: Temperature Tympanic 36.9 degC [36.6-38.1 degC] (01/25/16 10:10 AM) Apical Heart Rate 88 bpm [60-100 bpm] (01/25/16 10:10 AM) Blood Pressure 132/92 mmHg [90-140/60-90 mmHg] (01/25/16 10:10 AM) SpO2 98 % (01/25/16 10:10 AM) Problem List Condition Effective Dates Status Health Status Informant Acne(Confirmed) Resolved Allergic rhinitis - Resolved hayfever(Confirmed) Anxiety Resolved disorder(Confirmed) Asthma(Confirmed) Resolved Depression(Confirmed Resolved ) Gastritis(Confirmed) Resolved Elevated calcium Active levels in blood(Confirmed) Hyperparathyroidism( Active Confirmed) Insomnia(Confirmed) Resolved Lumbar Active radiculopathy(Confir med) Classic Active migraine(Confirmed) Renal stones - Resolved urethral(Confirmed) Allergies, Adverse Reactions, Alerts Substance Reaction Severity Status cephalexin Urticaria (hives) AND SOB Active erythromycin Active Hibiclens1 Active iodine Eczema (rash) Active vancomycin histamine release rxn Active itching all over 1Hibiclens - rash Medications acetaminophen extended release mg, Oral, q8hr, 0 Refill(s) Start Date: 01/25/16 Status: Ordered Adderall 20 mg oral tablet 20 mg 1 tabs, Oral, BID, 0 Refill(s) Start Date: 09/27/15 Status: Ordered Advair Diskus 250 mcg-50 mcg inhalation powder See Instructions, INHALE ONE DOSE BY MOUTH TWICE DAILY, # 60 unknown unit, eRx: [facility], INHALE ONE DOSE BY MOUTH [...] Daily, # 30 caps, 2 Refill(s), eRx: [facility], 1 caps Oral Daily Start Date: 11/04/15 Status: Ordered temazepam 15 mg oral capsule 1 caps, Oral, Bedtime (once a day), as needed for sleep, 0 Refill(s) Start Date: 02/01/14 Status: Ordered Ventolin HFA 90 mcg/inh inhalation aerosol See Instructions, INHALE TWO PUFFS EVERY 4 TO 6 HOURS NEEDED, # 18 unknown unit, 6 Refill(s), eRx: [facility], INHALE TWO PUFFS EVERY 4 [...] Visit Note Author: French Pelaez DO Date: 01/25/16 Assessment/Plan 1.Classic migraine, Migraine with aura, not intractable, without status migrainosus 1. We will set her up to see a neurologist for evaluation for Botox injections Ordered: Office Visit Level 4 Est 55316 2.Lumbar radiculopathy, Radiculopathy, lumbar region 1. She has degenerative disc disease at multiple level and the lower thoracic and lumbar spine. 2. We will refer her to Dr. Skinner for farther evaluation and recommendations. If she's not a good candidate for epidural injection then we plan on sending her to Dr. Bedolla. Ordered: Office Visit Level 4 Est 51416 3.Bite, insect, Bitten or stung by nonvenomous insect and other nonvenomous arthropods, initial encounter 1. Redness to the left inner thigh is consistent with an insect bite but this does not appear to be spider bite. 2. Recommended application of Benadryl for irritation and discomfort. 3. Follow-up for worsening presentation. Ordered: Office Visit Level 4 Est 86055 4.Keratosis, seborrheic, Other seborrheic keratosis Lesion today her left yazidism is consistent with seborrheic keratosis. This is a benign presentation. Ordered: Office Visit Level 4 Est 60754
--- OUTSIDE RECORDS SUMMARY | 2016-11-15 19:40 | XMS REPORT | Referral Summary ---
Author Author [facility] Organization [facility] Address Unknown Phone Unavailable Care Team Providers Care Knowledge Management Consultant Name Role Phone French Pelaez Primary Care Physician [phone] Encounter VC Date(s): 04/04/16 - 04/04/16 [facility] [address] [facility] [place] [address] Discharge Diagnosis: Disc degeneration, lumbar Discharge Diagnosis: Lumbar spondylosis Discharge Diagnosis: Lumbar radiculopathy Discharge Diagnosis: Lumbago Discharge Disposition: 01-Home or Self Care Attending Physician: Matthew Palma Admitting Physician: Matthew Palma Referring Physician: Yuki Salcido PA-C Vital Signs Most recent to 1 oldest [Reference Range]: Blood Pressure 124/80 mmHg [90-140/60-90 mmHg] (04/04/16 10:22 AM) Problem List Condition Effective Dates Status [...] TWICE DAILY, # 60 unknown unit, eRx: [facility], INHALE ONE DOSE BY [...] DAILY, # 30 caps, 5 Refill(s), eRx: [facility], TAKE ONE CAPSULE BY [...] TABLETS PER DAY., # 20 tabs, eRx: [facility], TAKE ONE TABLET BY [...] # 18 unknown unit, 6 Refill(s), eRx: [facility], INHALE TWO PUFFS EVERY 4 TO 6 [...] Extracted from: Title: Office Visit Note Author: Matthew Palma Date: 04/04/16 Assessment/Plan Disc degeneration, lumbar Lumbago Lumbar radiculopathy Lumbar spondylosis I did discuss with the patient and her previous lumbar spine MRI with findings of L5-S1disc bulging severe loss of disc height andspurs into the foramen regions bilaterally with mild to moderate bilateral foraminal narrowing , L4 5 small disc herniation focal annular tear posteriorlyand mild to moderate bilateral foraminal narrowing, L3 4 small disc bulging extending into the foraminal regions bilaterally with mild to moderate central canal narrowing and mild to moderate bilateral foraminal narrowing. Clinically she still describes some radicular type symptomsalthough did not get any significant improvement from her previous translaminar epidural at L3 [address] Skinner recommends proceeding with EMG nerve conduction study of both lower extremities for further investigation. Her symptoms are worse on the right side.Depending upon her results she may be a candidate for possibly transforaminal epidural the future. Dr. Skinner will plan further interventions based on results of her EMG nerve conduction study testing. She plans on discussing her medications further with her primary care physician. She'll also check with her primary care regarding the cold feeling and discoloration she notes in her feet at times. She and her voiced understanding and agrees to theabove plans. The above was in discussion with Dr. Skinner.
--- OUTSIDE RECORDS SUMMARY | 2016-11-15 19:40 | XMS REPORT | Referral Summary ---
Author Author [facility] Organization [facility] Address Unknown Phone Unavailable Care Team Providers Care Coil Winder Hand Name Role Phone French Pelaez Primary Care Physician [phone] Encounter VC Date(s): 03/10/15 - 03/10/15 [facility], [address] [place] [address] Discharge Diagnosis: Implanon insertion Discharge Diagnosis: Screening Discharge Disposition: 01-Home or Self Care Attending Physician: French Pelaez DO Admitting Physician: French Pelaez DO Vital Signs Most recent to 1 oldest [Reference Range]: Temperature Tympanic 36.8 degC [36.6-38.1 degC] (03/10/15 10:31 AM) Peripheral Pulse 60 bpm Rate [60-100 bpm] (03/10/15 10:31 AM) Blood Pressure 122/60 mmHg [90-140/60-90 mmHg] (03/10/15 10:31 AM) Problem List Condition Effective Dates Status [...] TWICE DAILY, # 60 unknown unit, eRx: [facility], INHALE ONE DOSE BY MOUTH TWICE DAILY [...] BID, # 56 tabs, 1 Refill(s), Pharmacy: [place] [id number] , 1 tabs Oral BID Start Date: 08/09/15 Stop Date: 10/10/15 Status: Ordered Chantix Starter Pack 0.5 mg-1 mg oral tablet See Instructions, TAKE DIRECTED ON PACKAGE, # 53 tabs, 1 Refill(s), eRx: [facility], TAKE DIRECTED ON PACKAGE Start Date: 08/08/15 Status: Ordered clonazePAM 1 mg oral tablet, disintegrating 1 mg 1 tabs, Oral, Daily, as needed for anxiety, 0 Refill(s) Start Date: 02/01/14 Status: Ordered Dexilant 60 mg oral delayed release capsule See Instructions, 1 caps Oral Daily, # 30 caps, eRx: [facility]28, 1 caps Oral Daily Start Date: 04/12/15 Status: Ordered Dexilant 60 mg oral delayed release capsule See Instructions, 1 caps Oral Daily, # 30 caps, 5 Refill(s), eRx: [facility]28, 1 caps Oral Daily Start Date: 05/12/15 Status: Ordered meloxicam 15 mg oral tablet 15 mg 1 tabs, Oral, Daily, # 30 tabs, 0 Refill(s), Pharmacy: [facility], 1 tabs Oral Daily Start [...] PER DAY., # 20 tabs, [facility], TAKE ONE TABLET BY MOUTH [...] # 18 unknown unit, 6 Refill(s), [facility], INHALE TWO PUFFS EVERY 4 [...] pain, # 42 caps, 0 Refill(s), Pharmacy: [facility], 1 caps Oral BID,PRN:as needed for pain Start Date: 06/28/15 Status: Ordered Results Chemistry Most recent to 1 oldest [Reference Range]: U Beta hCG Ql Negative [Negative] (03/10/15 10:20 AM) Immunizations Vaccine Date Refusal Reason influenza [...] Visit Note Author: Benigno French REZA Date: 03/10/15 Assessment/Plan Implanon insertion 1. Contraceptive counseling done today, the patient would like Nexplanon placement for both contraceptive and hormonal management for hot flashes. 2. Risk and benefits of Nexplanon placement was discussed in detail with the patient, she voiced understanding and informed consent was signed. Procedure: Nexplanon placement Indication: Patient desired for contraception and for hot flashes Location: Left upper arm Medications: 2 mL of one percent lidocaine with epinephrine Description: After review of the risks, benefits and possible complications of the procedure, signed informed consent was obtained. The patient was then laid in the supine position with the left arm abducted, externally rotated and the elbow flexed at 90 _ 6 angle. Landmarks identified for insertion of the Nexplanon device at the inner aspect of the upper arm region. The area was cleansed with alcohol followed by chlorhexidine. Local anesthesia was achieved using one percent lidocaine with epinephrine. A total of 2 mLs was injected in a tracking manner along the area for insertion. Once local anesthesia was achieved, the device was placed without difficulty. There was minimal bleeding, provider and patient were able to palpate the implant in the subcutaneous tissue. Compression dressing was placed and wound care instructions provided. Ordered: Office Visit Level 3 Est 31531 Screening test was negative. Ordered: Office Visit Level 3 Est 14060
--- OUTSIDE RECORDS SUMMARY | 2016-11-15 19:40 | XMS REPORT | Referral Summary ---
Author Author [facility] Organization [facility] Address Unknown Phone Unavailable Care Team Providers Care Inspector Aluminum Boat Name Role Phone French Pelaez Primary Care Physician [phone] Encounter VC Date(s): 09/27/15 - 09/27/15 [facility] [address] [place] [address] Discharge Disposition: 01-Home or Self Care Attending Physician: French Pelaez DO Admitting Physician: French Pelaez DO Vital Signs Most recent to 1 oldest [Reference Range]: Peripheral Pulse 92 bpm Rate [60-100 bpm] (09/27/15 2:45 PM) Blood Pressure 118/80 mmHg [90-140/60-90 mmHg] (09/27/15 2:45 PM) SpO2 98 % (09/27/15 2:45 PM) Problem List Condition Effective Dates Status [...] TWICE DAILY, # 60 unknown unit, [facility], INHALE ONE DOSE BY MOUTH TWICE DAILY [...] BID, # 56 tabs, 1 Refill(s), Pharmacy: [facility] , 1 tabs Oral BID Start Date: 08/09/15 Stop Date: 10/10/15 Status: Ordered Chantix Starter Pack 0.5 mg-1 mg oral tablet See Instructions, TAKE DIRECTED ON PACKAGE, # 53 tabs, 1 Refill(s), eRx: [facility], TAKE DIRECTED ON PACKAGE Start Date: 08/08/15 Status: Ordered clonazePAM 1 mg oral tablet, disintegrating 1 mg 1 tabs, Oral, Daily, as needed for anxiety, 0 Refill(s) Start Date: 02/01/14 Status: Ordered cyclobenzaprine 10 mg oral tablet 10 mg 1 tabs, Oral, Bedtime (once a day), as needed for spasm, X 30 days, # 30 tabs, 0 Refill(s), Pharmacy: [facility]28, 1 tabs Oral Bedtime (once a day),x30 days,PRN:as needed for spasm Start Date: 09/27/15 Stop Date: 10/27/15 Status: Ordered Dexilant 60 mg oral delayed release capsule See Instructions, 1 caps Oral Daily, # 30 caps, eRx: [facility], 1 caps Oral Daily Start Date: 04/12/15 Status: Ordered Dexilant 60 mg oral delayed release capsule See Instructions, 1 caps Oral Daily, # 30 caps, 5 Refill(s), eRx: [facility], 1 caps Oral Daily Start Date: 05/12/15 Status: Ordered meloxicam 15 mg oral tablet 15 mg 1 tabs, Oral, Daily, # 30 tabs, 0 Refill(s), Pharmacy: [facility], 1 tabs Oral Daily [...] TABLETS PER DAY., # 20 tabs, eRx: [facility], TAKE ONE TABLET BY [...] # 18 unknown unit, 6 Refill(s), eRx: [facility], INHALE TWO PUFFS EVERY [...] pain, # 42 caps, 0 Refill(s), Pharmacy: [facility], 1 caps Oral BID,PRN:as needed for [...] back pain Author: French Pelaez DO Date: 09/27/15 Assessment/Plan Low back pain 1. Clinical findings consistent with lumbar muscle spasm. 2. Continue with meloxicam one tablet daily. 3. Cyclobenzaprine, 10 mg at bedtime. 4. For all the physical therapy. 5. Follow-up in one month for reevaluation. If no improvement with physical therapy then we may consider imaging. 6. More than 25 minutes were spent [id number] with this patient today explaining the pathophysiology of lower back pain. I advised her that even if she was to have bulging disc, this does not necessarily means it is the cause of her pain. Ordered: Office Visit Level 4 Est 38278 Orders: cyclobenzaprine, 10 mg 1 tabs, Oral, Bedtime (once a day), as needed for spasm, X 30 days, # 30 tabs, 0 Refill(s), Pharmacy: [id number], 1 tabs Oral Bedtime (once a day),x30 days,PRN:as needed for spasm
--- OUTSIDE RECORDS SUMMARY | 2016-11-15 19:40 | XMS REPORT | Referral Summary ---
Author Author [facility] Organization [facility] Address Unknown Phone Unavailable Care Team Providers Care Cadet Deck Name Role Phone French Pelaez Primary Care Physician [phone] Encounter VC Date(s): 04/24/16 - 04/24/16 [facility] [address] [facility] [place] [address] Discharge Diagnosis: Lumbar spondylosis Discharge Disposition: 01-Home or Self Care Attending Physician: Wally Skinner MD Admitting Physician: Wally Skinner MD Vital Signs Most recent to 1 oldest [Reference Range]: Apical Heart Rate 69 bpm [60-100 bpm] (04/24/16 8:58 AM) Respiratory Rate 14 br/min [14-20 br/min] (04/24/16 8:58 AM) Blood Pressure 143/89 mmHg [90-140/60-90 mmHg] *HI* (04/24/16 8:58 AM) SpO2 100 % (04/24/16 8:58 AM) Problem List Condition Effective Dates Status [...] TWICE DAILY, # 60 unknown unit, eRx: [facility] 2428, INHALE ONE DOSE BY MOUTH TWICE [...] DAILY, # 30 caps, 5 Refill(s), eRx: [facility] 2428, TAKE ONE CAPSULE BY MOUTH [...] TABLETS PER DAY., # 20 tabs, eRx: [facility] 2428, TAKE ONE TABLET BY MOUTH AT [...] # 18 unknown unit, 6 Refill(s), eRx: [facility], INHALE TWO PUFFS EVERY 4 [...] Vomiting, # 30 tabs, 0 Refill(s), Pharmacy: [facility]28, 1 tabs Oral q6hr,PRN:Nausea or Vomiting Start Date: 04/13/16 Stop Date: 05/14/16 Status: Ordered Results No data available for this section Immunizations Vaccine Date Refusal Reason influenza virus vaccine, inactivated 06/21/15 Procedures Procedure Date Related Diagnosis Body Site Bilateral L5-S1 Facet 04/24/16 Injection(s), diagnostic or therapeutic 04/24/16 agent, paravertebral facet (zygapophyseal) joint (or nerves innervating that joint) with image guidance (fluoroscopy or CT), lumbar or sacral; single level.. BILATERAL TROCHANTERIC BURSE/ INJ UNDER 03/13/16 ULTRASOUND [...] Extracted from: Title: Ambulatory Patient Education Author: Thais Echevarria RN Date: Anesthesiology Facet Joint Block The facet joints connect the bones of the spine (vertebrae). They make it possible for you to bend, twist, and make other movements with your spine. They also prevent you from overbending, overtwisting, and making other excessive movements. A facet joint block is a procedure where a numbing medicine (anesthetic) is injected into a facet joint. Often, a type of anti-inflammatory medicine called a steroid is also injected. A facet joint block may be done for two reasons: Diagnosis. A facet joint block may be done as a test to see whether neck or back pain is caused by a worn-down or infected facet joint. If the pain gets better after a facet joint block, it means the pain is probably coming from the facet joint. If the pain does not get better, it means the pain is probably not coming from the facet joint. Therapy. A facet joint block may be done to relieve neck or back pain caused by a facet joint. A facet joint block is only done as a therapy if the pain does not improve with medicine, exercise programs, physical therapy, and other forms of pain management. LET YOUR HEALTH CARE PROVIDER KNOW ABOUT: Any allergies you have. All medicines you are taking, including vitamins, herbs, eyedrops, and jdyl-hpp-utcjumk medicines and creams. Previous problems you or members of your family have had with the use of anesthetics. Any blood disorders you have had. Other health problems you have. RISKS AND COMPLICATIONS Generally, having a facet joint block is safe. However, as with any procedure, complications can occur. Possible complications associated with having a facet joint block include: Bleeding. Injury to a nerve near the injection site. Pain at the injection site. Weakness or numbness in areas controlled by nerves near the injection site. Infection. Temporary fluid retention. Allergic reaction to anesthetics or medicines used during the procedure. BEFORE THE PROCEDURE Follow your health care provider's instructions if you are taking dietary supplements or medicines. You may need to stop taking them or reduce your dosage. Do not take any new dietary supplements or medicines without asking your health care provider first. Follow your health care provider's instructions about eating and drinking before the procedure. You may need to stop eating and drinking several hours before the procedure. Arrange to have an adult drive you home after the procedure. PROCEDURE You may need to remove your clothing and dress in an open-back gown so that your health care provider can access your spine. The procedure will be done while you are lying on an X-ray table. Most of the time you will be asked to lie on your stomach, but you may be asked to lie in a different position if an injection will be made in your neck. Special machines will be used to monitor your oxygen levels, heart rate, and blood pressure. If an injection will be made in your neck, an intravenous (IV) tube will be inserted into one of your veins. Fluids and medicine will flow directly into your body through the IV tube. The area over the facet joint where the injection will be made will be cleaned with an antiseptic soap. The surrounding skin will be covered with sterile drapes. An anesthetic will be applied to your skin to make the injection area numb. You may feel a temporary stinging or burning sensation. A video X-ray machine will be used to locate the joint. A contrast dye may be injected into the facet joint area to help with locating the joint. When the joint is located, an anesthetic medicine will be injected into the joint through the needle. Your health care provider will ask you whether you feel pain relief. If you do feel relief, a steroid may be injected to provide pain relief for a longer period of time. If you do not feel relief or feel only partial relief, additional injections of an anesthetic may be made in other facet joints. The needle will be removed, the skin will be cleansed, and bandages will be applied. AFTER THE PROCEDURE You will be observed for 1530 minutes before being allowed to go home. Do not drive. Have an adult drive you or take a taxi or public transportation instead. If you feel pain relief, the pain will return in several hours or days when the anesthetic wears off. You may feel pain relief 214 days after the procedure. The amount of time this relief lasts varies from person to person. It is normal to feel some tenderness over the injected area(s) for 2 days following the procedure. If you have diabetes, you may have a temporary increase in blood sugar. This information is not intended to replace advice given to you by your health care provider. Make sure you discuss any questions you have with your health care provider. Document Released: 01/01/2008 Document Revised: 09/02/2015 Document Reviewed: Exit[employer] Patient Information 2016 [place], [facility]. No follow up information was provided.
--- OUTSIDE RECORDS SUMMARY | 2016-11-15 19:40 | XMS REPORT | Referral Summary ---
Author Author [facility] Organization [facility] Address Unknown Phone Unavailable Care Team Providers Care Play Writer Name Role Phone PavithrachelseaFrench Primary Care Physician [phone] Encounter VC Date(s): 02/18/15 - 02/18/15 [facility] [address] [place] [id number] Discharge Diagnosis: Menopausal symptom Discharge Disposition: 01-Home or Self Care Attending Physician: Kelly Castellon APRN Admitting Physician: Kelly Castellon APRN Vital Signs Most recent to 1 oldest [Reference Range]: Peripheral Pulse 78 bpm Rate [60-100 bpm] (02/18/15 9:38 AM) Blood Pressure 126/72 mmHg [90-140/60-90 mmHg] (02/18/15 9:38 AM) Problem List Condition Effective Dates Status [...] TWICE DAILY, # 60 unknown unit, eRx: [facility], INHALE ONE DOSE BY MOUTH TWICE DAILY [...] BID, # 56 tabs, 1 Refill(s), Pharmacy: [facility] 2428 , 1 tabs Oral BID Start Date: 08/09/15 Stop Date: 10/10/15 Status: Ordered Chantix Starter Pack 0.5 mg-1 mg oral tablet See Instructions, TAKE DIRECTED ON PACKAGE, # 53 tabs, 1 Refill(s), eRx: [facility], TAKE DIRECTED ON PACKAGE Start Date: 08/08/15 Status: Ordered clonazePAM 1 mg oral tablet, disintegrating 1 mg 1 tabs, Oral, Daily, as needed for anxiety, 0 Refill(s) Start Date: 02/01/14 Status: Ordered Dexilant 60 mg oral delayed release capsule See Instructions, 1 caps Oral Daily, # 30 caps, eRx: [facility] 2428, 1 caps Oral Daily Start Date: 04/12/15 Status: Ordered Dexilant 60 mg oral delayed release capsule See Instructions, 1 caps Oral Daily, # 30 caps, 5 Refill(s), eRx: [facility] 2428, 1 caps Oral Daily Start [...] TABLETS PER DAY., # 20 tabs, eRx: [facility]28, TAKE ONE TABLET BY MOUTH [...] # 18 unknown unit, 6 Refill(s), eRx: [facility]28, INHALE TWO PUFFS EVERY 4 [...] pain, # 42 caps, 0 Refill(s), Pharmacy: [facility]28, 1 caps Oral BID,PRN:as needed for pain Start Date: 06/28/15 Status: Ordered Results Chemistry Most recent to 1 oldest [Reference Range]: FSH 5.8 mIU/mL 1 (02/18/15 10:20 AM) 1Result Comment: Adult Female ranges: Follicular: 3.0 - 8.1 mIU/mL Mid-cycle: 2.6 - 16.7 mIU/mL Luteal Phase 1.4 - 5.5 mIU/mL Post-menopausal 26.7 - 133.4 mIU/mL Immunizations Vaccine Date Refusal Reason influenza virus vaccine, inactivated 06/21/15 Procedures Procedure Date Related Diagnosis Body Site Colonoscopy1 05/18/15 COLORECTAL CANCER SCREENING; COLONOSCOPY ON 05/18/15 INDIVIDUAL NOT MEETING CRITERIA FOR HIGH RISK2 Collection of venous blood by venipuncture 02/18/15 bimanual pelvic examination Cystoscopy hydrodistention of bladder [...]
--- OUTSIDE RECORDS SUMMARY | 2016-11-15 19:40 | XMS REPORT | Referral Summary ---
Author Author [facility] Organization [facility] Address Unknown Phone Unavailable Care Team Providers Care Superintendent Storage Area Name Role Phone French Pelaez Primary Care Physician [phone] Encounter VC Date(s): 03/04/15 - 03/04/15 [facility], [address] [place] [address] Discharge Diagnosis: Asthma, moderate persistent, poorly-controlled Discharge Disposition: 01-Home or Self Care Attending Physician: French Pelaez DO Admitting Physician: French Pelaez DO Vital Signs Most recent to 1 oldest [Reference Range]: Temperature Tympanic 35.5 degC [36.6-38.1 degC] *LOW* (03/04/15 10:50 AM) Peripheral Pulse 72 bpm Rate [60-100 bpm] (03/04/15 10:50 AM) Blood Pressure 138/95 mmHg [90-140/60-90 mmHg] (03/04/15 10:50 AM) SpO2 99 % (03/04/15 10:50 AM) Problem List Condition Effective Dates Status [...] TWICE DAILY, # 60 unknown unit, eRx: [facility]21, INHALE ONE DOSE BY MOUTH TWICE DAILY [...] BID, # 56 tabs, 1 Refill(s), Pharmacy: [facility] 2428 , 1 tabs Oral BID Start Date: 08/09/15 Stop Date: 10/10/15 Status: Ordered Chantix Starter Pack 0.5 mg-1 mg oral tablet See Instructions, TAKE DIRECTED ON PACKAGE, # 53 tabs, 1 Refill(s), eRx: [facility], TAKE DIRECTED ON PACKAGE Start Date: 08/08/15 Status: Ordered clonazePAM 1 mg oral tablet, disintegrating 1 mg 1 tabs, Oral, Daily, as needed for anxiety, 0 Refill(s) Start Date: 02/01/14 Status: Ordered Dexilant 60 mg oral delayed release capsule See Instructions, 1 caps Oral Daily, # 30 caps, eRx: [facility]28, 1 caps Oral Daily Start Date: 04/12/15 Status: Ordered Dexilant 60 mg oral delayed release capsule See Instructions, 1 caps Oral Daily, # 30 caps, 5 Refill(s), eRx: [facility]28, 1 caps Oral Daily Start Date: 05/12/15 Status: Ordered meloxicam 15 mg oral tablet 15 mg 1 tabs, Oral, Daily, # 30 tabs, 0 Refill(s), Pharmacy: [facility]28, 1 tabs Oral [...] TABLETS PER DAY., # 20 tabs, eRx: [facility]28, TAKE ONE TABLET BY MOUTH [...] # 18 unknown unit, 6 Refill(s), eRx: [facility]28, INHALE TWO PUFFS EVERY 4 [...] pain, # 42 caps, 0 Refill(s), Pharmacy: [facility]28, 1 caps Oral BID,PRN:as needed [...] Visit Note Author: French Pelaez DO Date: 03/04/15 Assessment/Plan Asthma, moderate persistent, poorly-controlled 1. Continue with Advair and rescue inhaler as previous. 2. Prednisone 20 mg daily for 5 days. 3. Zithromax, take as directed for 5 days. 4. Follow-up for any worsening symptoms. Ordered: azithromycin, 1 packets, Oral, Daily, as directed on package labeling, X 5 days , # 6 tabs, 0 Refill(s), Pharmacy: [facility]28, 1 packets Oral Daily, x5 days,Instr:as directed on package labeling predniSONE, 20 mg 1 tabs, Oral, Daily, X 5 days, # 5 tabs, 0 Refill(s), Pharmacy: [facility]28, 1 tabs Oral Daily,x5 days Orders: albuterol, See Instructions, INHALE TWO PUFFS EVERY 4 TO 6 HOURS NEEDED, # 18 unknown unit, 6 Refill(s), eRx: [facility]28, INHALE TWO PUFFS EVERY 4 TO 6 HOURS NEEDED BD Bone Density DEXA Axial Skeleton
--- OUTSIDE RECORDS SUMMARY | 2016-11-15 19:40 | XMS REPORT | Referral Summary ---
Author Author [facility] Organization [facility] Address Unknown Phone Unavailable Care Team Providers Care Ticket Attendant Name Role Phone French Pelaez Primary Care Physician [phone] Encounter Date(s): 06/11/16 - 06/11/16 [facility] [address] [place] [address] [facility] Discharge Diagnosis: Hypercalcemia Discharge Diagnosis: Vitamin D deficiency Discharge Disposition: 01-Home or Self Care Attending Physician: Kathy Franklin MD Admitting Physician: Kathy Franklin MD Vital Signs Most recent to 1 oldest [Reference Range]: Peripheral Pulse 74 bpm Rate [60-100 bpm] (06/11/16 9:53 AM) Blood Pressure 123/80 mmHg [90-140/60-90 mmHg] (06/11/16 9:53 AM) Problem List Condition Effective Dates Status [...] TWICE DAILY, # 60 unknown unit, eRx: [facility]28, INHALE ONE DOSE BY [...] DAILY, # 30 caps, 5 Refill(s), eRx: [facility]28, TAKE ONE CAPSULE BY MOUTH ONCE DAILY Start Date: 02/02/16 Status: Ordered Fetzima 40 mg oral capsule, extended release mg caps, Oral, Daily, 0 Refill(s) Start Date: 04/04/16 Status: Ordered Fioricet oral tablet 1 tabs, Oral, q4hr, as needed for pain, # 40 tabs, 0 Refill(s), Pharmacy: [facility] 2428 Start Date: 05/28/16 Status: Ordered rizatriptan 10 mg oral tablet See Instructions, TAKE ONE TABLET BY MOUTH AT ONSET OF HEADACHE, MAY REPEAT IN 2 HOURS IF NOT BETTER. MAXIMUM OF 2 TABLETS PER DAY., # 20 tabs, eRx: [facility]28, TAKE ONE TABLET BY [...] # 18 unknown unit, 6 Refill(s), eRx: [facility]28, INHALE TWO PUFFS EVERY 4 TO 6 HOURS NEEDED Start Date: 03/04/15 Status: Ordered Zantac 150 mg, Oral, Bedtime [...] Education Author: Kathy Franklin MD Date : 06/11/16 Labs Parathyroid Hormone Test WHY AM I HAVING THIS TEST? Parathyroid hormone (PTH) is made by your parathyroid glands. These are four tiny glands that surround the larger thyroid gland in your neck. When your blood calcium levels are low, your parathyroid glands release PTH into the blood. This causes several changes in your body that result in an increase in your blood calcium level. Some of these changes include pulling calcium out of your bones and decreasing how much calcium your kidneys allow to leave your body through urination. When blood calcium levels are normal or too high, blood PTH levels decrease. Your health care provider may want you to have this test if you: Have signs of oiesum-syge-gulbpg blood calcium levels (hypercalcemia). Have signs of fstgi-pstf-rqhzoh blood calcium levels (hypocalcemia). Have a kidney infection. Have kidney disease. WHAT KIND OF SAMPLE IS TAKEN? A blood sample is required for this test. It is usually obtained by inserting a needle into a vein or sticking a finger with a small needle. HOW DO I PREPARE FOR THIS TEST? Do not eat or drink anything after midnight on the night before the procedure or as directed by your health care provider. WHAT ARE THE REFERENCE RANGES? Reference rangesare considered healthy ranges established after testing a large group of healthy people. Reference ranges may vary among different people , labs, and hospitals. It is your responsibility to obtain your test results. Ask the lab or department performing the test when and how you will get your results. Reference ranges for this test are: PTH intact (whole): 1065 pg/mL (SI units). PTH N-terminal: 824 pg/mL (SI units). PTH C-terminal: 10541 pg/mL (SI units). WHAT DO THE RESULTS MEAN? PTH test results that are higher than the reference range may indicate a number of health conditions. These may include: Overactive parathyroid glands (hyperparathyroidism). Rpy-KWB-vikvimyjz tumors. Kidney defect that is present at (congenital). Hypocalcemia. Long-term (chronic) kidney failure. Malabsorption syndrome. This means your body does not properly absorb nutrients such as calcium from the intestinal tract. Vitamin D deficiency. Adequate vitamin D levels are required for calcium to be absorbed from the intestinal tract. Vitamin D deficiency can lead to low levels of calcium in the blood. PTH test results that are lower than the reference range may indicate a number of health conditions. These may include: Underactive parathyroid glands (hypoparathyroidism). Hypercalcemia. Bone tumor. Hypercalcemia of malignancy. Sarcoidosis. Vitamin D intoxication. Milk-alkali syndrome. DiGeorge syndrome. Talk with your health care provider to discuss your results, treatment options, and if necessary, the need for more tests. Talk with your health care provider if you have any questions about your results. This information is not intended to replace advice given to you by your health care provider. Make sure you discuss any questions you have with your health care provider. Document Released: 09/14/2005 Document Revised: 09/02/2015 Document Reviewed: [employer] Interactive Patient Education 2016 [employer] No follow up information was provided.
--- OUTSIDE RECORDS SUMMARY | 2016-11-15 19:40 | XMS REPORT | Referral Summary ---
Author Author [facility] Organization [facility] Address Unknown Phone Unavailable Care Team Providers Care Hog Counter Name Role Phone Pavithrachelsea French Primary Care Physician [phone] Encounter VC Date(s): 09/18/16 - 09/18/[address] [facility] [address] [facility] [address] [place] [address] Discharge Diagnosis: Chronic migraine without aura, not intractable, with status migrainosus Discharge Diagnosis: Medication overuse headache Discharge Diagnosis: History of kidney stones Discharge Diagnosis: Depression Discharge Disposition: 01-Home or Self Care Attending Physician: Edwin Beebe MD Admitting Physician: Edwin Beebe MD Vital Signs Most recent to 1 oldest [Reference Range]: Peripheral Pulse 80 bpm Rate [60-100 bpm] (09/18/16 2:26 PM) Blood Pressure 148/96 mmHg [90-140/60-90 mmHg] *HI* (09/18/16 2:26 PM) Problem List Condition Effective Dates Status [...] TWICE DAILY, # 60 unknown unit, eRx: [facility], INHALE ONE DOSE BY [...] DAILY, # 30 caps, 5 Refill(s), Pharmacy: [place] [id number], TAKE ONE CAPSULE BY MOUTH ONCE DAILY Start Date: 08/17/16 Status: Ordered Dulcolax Laxative mg, Daily, 0 Refill(s) Start Date: 09/18/16 Status: Ordered Dulcolax Stool Softener mg, Oral, BID, 0 Refill(s) Start Date: 09/18/16 Status: Ordered Fioricet oral tablet 1 tabs, Oral, q4hr, as needed for pain, # 40 tabs, 3 Refill(s), Pharmacy: [facility] Start Date: 08/21/16 Status: Ordered hydroCHLOROthiazide 25 mg oral tablet 25 mg 1 tabs, Oral, Daily, # 30 tabs, 0 Refill(s), Pharmacy: [facility], 1 tabs Oral Daily Start Date: 08/31/16 Status: Ordered lisinopril-hydrochlorothiazide 20 mg-12.5 mg oral tablet 1 tabs, Oral, Daily, # 30 tabs, 2 Refill(s), Pharmacy: [facility] Start Date: 08/21/16 Stop Date: 11/19/16 Status: Ordered rizatriptan 10 mg oral tablet mg tabs, Oral, Daily, 0 Refill(s) Start Date: 09/18/16 Status: Ordered temazepam 15 mg oral capsule 15 mg 1 caps, Oral, Bedtime (once a day), as needed for sleep, # 30 caps, 0 Refill(s), other reason (Rx) Start Date: 08/21/16 Stop Date: 09/21/16 Status: Ordered traMADol 50 mg oral tablet 1-2 tabs, Oral, q6hr, as needed for pain, # 40 tabs, 0 Refill(s) Start Date: 09/07/16 Stop Date: 09/28/16 Status: Ordered Ventolin HFA 90 mcg/inh inhalation aerosol See Instructions, INHALE TWO PUFFS EVERY 4 TO 6 HOURS NEEDED, # 18 unknown unit, 6 Refill(s), eRx: [facility], INHALE TWO PUFFS EVERY 4 TO 6 HOURS NEEDED Start Date: 03/04/15 Status: Ordered Viibryd 40 mg oral tablet mg tabs, Oral, Daily, 0 Refill(s) Start Date: 07/10/16 Status: Ordered Wellbutrin XL 300 mg/24 hours oral tablet, extended release 300 mg 1 tabs, Oral, Daily, # 30 tabs, 1 Refill(s), Pharmacy: [facility], 1 tabs Oral Daily Start [...] Extracted from: Title: Ambulatory Patient Education Author: Edwin Beebe MD Date: 09/18/16 Emergency Medicine Migraine Headache A migraine headache is an intense, throbbing pain on one or both sides of your head. A migraine can last for 30 minutes to several hours. CAUSES The exact cause of a migraine headache is not always known. However, a migraine may be caused when nerves in the brain become irritated and release chemicals that cause inflammation. This causes pain. Certain things may also trigger migraines, such as: Alcohol. Smoking. Stress. Menstruation. Aged cheeses. Foods or drinks that contain nitrates, glutamate, aspartame, or tyramine. Lack of sleep. Chocolate. Caffeine. Hunger. Physical exertion. Fatigue. Medicines used to treat chest pain (nitroglycerine), control pills , estrogen, and some blood pressure medicines. SIGNS AND SYMPTOMS Pain on one or both sides of your head. Pulsating or throbbing pain. Severe pain that prevents daily activities. Pain that is aggravated by any physical activity. Nausea, vomiting, or both. Dizziness. Pain with exposure to bright lights, loud noises, or activity. General sensitivity to bright lights, loud noises, or smells. Before you get a migraine, you may get warning signs that a migraine is coming ( aura). An aura may include: Seeing flashing lights. Seeing bright spots, halos, or zigzag lines. Having tunnel vision or blurred vision. Having feelings of numbness or tingling. Having trouble talking. Having muscle weakness. DIAGNOSIS A migraine headache is often diagnosed based on: Symptoms. Physical exam. A CT scan or MRI of your head. These imaging tests cannot diagnose migraines, but they can help rule out other causes of headaches. TREATMENT Medicines may be given for pain and nausea. Medicines can also be given to help prevent recurrent migraines. HOME CARE INSTRUCTIONS Only take [id number] or prescription medicines for pain or discomfort as directed by your health care provider. The use of long-term narcotics is not recommended. Lie down in a dark, quiet room when you have a migraine. Keep a journal to find out what may trigger your migraine headaches. For example, write down: What you eat and drink. How much sleep you get. Any change to your diet or medicines. Limit alcohol consumption. Quit smoking if you smoke. Get 79 hours of sleep, or as recommended by your health care provider. Limit stress. Keep lights dim if bright lights bother you and make your migraines worse. SEEK IMMEDIATE MEDICAL CARE IF: Your migraine becomes severe. You have a fever. You have a stiff neck. You have vision loss. You have muscular weakness or loss of muscle control. You start losing your balance or have trouble walking. You feel faint or pass out. You have severe symptoms that are different from your first symptoms. MAKE SURE YOU: Understand these instructions. Will watch your condition. Will get help right away if you are not doing well or get worse. This information is not intended to replace advice given to you by your health care provider. Make sure you discuss any questions you have with your health care provider. Document Released: 08/12/2006 Document Revised: 09/02/2015 Document Reviewed: [employer] Interactive Patient Education 2016 [employer] No follow up information was provided. Extracted from: Title: Neurology initial Office Author: Edwin Beebe MD Date: 09/18/16 Visit Note Assessment/Plan 1. Chronic migraine without aura, not intractable, with status migrainosus: I explained to the patient and her family that the most likely cause of her headache at the moment is medication overuse headache secondary to excessive Fioricet use. It appears that the Fetzima is what started her headaches but then changed into medication overuse headache from Fioricet. He will taper her off Fioricet as follow: 1 tab once daily for one week 1 tab every other day for 1 week 1 tab twice weekly for 1 week Then discontinue We discussed that she may go through withdrawal headaches/worsening headaches in the first few weeks of the titration. We will start propranolol 10 mg twice a day to help with withdrawal headaches I also offered infusions at the infusion center to help with any severe withdrawal headaches that she may develop I warned her against using any other analgesics to fight the withdrawal headaches as any other analgesic can also cause medication overuse headaches. The patient and family voiced understanding. Their questions were answered to their satisfaction. Topamax is contraindicated due to history of kidney stones If headaches do not improve after a few weeks of stopping Fioricet, we'll consider titrating propranolol up or adding another migraine preventative medication. 2. Medication overuse headache 3. Depression 4. History of kidney stones Time spent with the patient: 45min with greater than 50% of the office visit spent in counseling the patient, coordination of care, reviewing diagnostic studies, treatment options, follow up plan, and answering the patient's questions. Return to clinic in2 months
--- OUTSIDE RECORDS SUMMARY | 2016-11-15 19:41 | XMS REPORT | Referral Summary ---
Author Author [facility] Organization [facility] Address Unknown Phone Unavailable Care Team Providers Care Sweatband Cutting Machine Operator Name Role Phone French Pelaez Primary Care Physician [phone] Encounter VC Date(s): 04/19/15 - 04/19/15 [facility] [address] [place] [address] [place] [id number] Discharge Diagnosis: Polyarthralgia Discharge Diagnosis: NSAID long-term use Discharge Diagnosis: Tendinopathy Discharge Disposition: 01-Home or Self Care Attending Physician: Kelle Gonzalez MD Admitting Physician: Kelle Gonzalez MD Referring Physician: French Pelaez DO Vital Signs Most recent to 1 oldest [Reference Range]: Temperature Tympanic 37.3 degC [36.6-38.1 degC] (04/19/15 4:09 PM) Peripheral Pulse 70 bpm Rate [60-100 bpm] (04/19/15 4:09 PM) Respiratory Rate 16 br/min [14-20 br/min] (04/19/15 1:47 PM) Blood Pressure 115/70 mmHg [90-140/60-90 mmHg] (04/19/15 4:09 PM) SpO2 100 % (04/19/15 4:09 PM) Problem List Condition Effective Dates Status [...] TWICE DAILY, # 60 unknown unit, eRx: [facility], INHALE ONE DOSE BY [...] days, # 30 tabs, 0 Refill(s), Pharmacy: [facility], 1 tabs Oral Bedtime (once a day),x30 days,PRN:as needed for spasm Start Date: 10/27/15 Stop Date: 11/26/15 Status: Ordered Dexilant 60 mg oral delayed release capsule See Instructions, 1 caps Oral Daily, # 30 caps, eRx: [facility], 1 caps Oral Daily Start Date: 04/12/15 Status: Ordered Dexilant 60 mg oral delayed release capsule See Instructions, 1 caps Oral Daily, # 30 caps, 5 Refill(s), eRx: [facility], 1 caps Oral Daily Start Date: 05/12/15 Status: Ordered meloxicam 15 mg oral tablet 15 mg 1 tabs, Oral, Daily, # 30 tabs, 0 Refill(s), Pharmacy: [facility], 1 tabs Oral Daily Start Date: 10/27/15 Status: Ordered rizatriptan 10 mg oral tablet See Instructions, TAKE ONE TABLET BY MOUTH AT ONSET OF HEADACHE, MAY REPEAT IN 2 HOURS IF NOT BETTER. MAXIMUM 2 TABLETS PER DAY., # 20 tabs, eRx: [facility], TAKE ONE TABLET BY MOUTH [...] # 18 unknown unit, 6 Refill(s), eRx: [facility], INHALE TWO PUFFS EVERY 4 [...]
--- OUTSIDE RECORDS SUMMARY | 2016-11-15 19:41 | XMS REPORT | Referral Summary ---
Author Author [facility] Organization [facility] Address Unknown Phone Unavailable Care Team Providers Care Wild Life Manager Name Role Phone French Pelaez Primary Care Physician [phone] Encounter VC Date(s): 01/11/16 - 01/11/16 [facility] [address] [place] [id number] Discharge Diagnosis: Hyperparathyroidism Discharge Diagnosis: Lumbar radiculopathy Discharge Diagnosis: Classic migraine Discharge Disposition: 01-Home or Self Care Attending Physician: French Pelaez DO Vital Signs Most recent to 1 oldest [Reference Range]: Temperature Tympanic 36.8 degC [36.6-38.1 degC] (01/11/16 1:39 PM) Peripheral Pulse 75 bpm Rate [60-100 bpm] (01/11/16 1:39 PM) Blood Pressure 140/89 mmHg [90-140/60-90 mmHg] (01/11/16 1:39 PM) Problem List Condition Effective Dates Status [...] TWICE DAILY, # 60 unknown unit, eRx: [facility], INHALE ONE DOSE BY [...] Daily, # 30 caps, 2 Refill(s), eRx: [facility], 1 caps Oral Daily Start Date: 11/04/15 Status: Ordered rizatriptan 10 mg oral tablet See Instructions, TAKE ONE TABLET BY MOUTH AT ONSET OF HEADACHE, MAY REPEAT IN 2 HOURS IF NOT BETTER. MAXIMUM 2 TABLETS PER DAY., # 20 tabs, 0 Refill(s), Pharmacy: [facility], TAKE ONE TABLET BY MOUTH [...] # 18 unknown unit, 6 Refill(s), eRx: [facility], INHALE TWO PUFFS EVERY [...] Visit Note Author: French Pelaez DO Date: 01/11/16 Assessment/Plan 1.Lumbar radiculopathy 1. Discontinue physical therapy since it's not helping. 2. Continue with stretching exercises and TENS unit treatment. 3. MRI of the lumbar spine ordered, report is pending. A consider sending her for epidural injection versus neurosurgical evaluation. Ordered: Office Visit Level 3 Est 69218 2.Classic migraine 1. We will refer to neurologist in [place] for evaluation as to whether she is a candidate for Botox injections. Ordered: Office Visit Level 3 Est 68026 3.Hyperparathyroidism 1. Continue with photogrammetrist for management of her hypercalcemia and hyperparathyroidism. Ordered: Office Visit Level 3 Est 44431 Orders: MRI Spine Lumbar w/o Contrast
--- OUTSIDE RECORDS SUMMARY | 2016-11-15 19:41 | XMS REPORT | Referral Summary ---
Author Author [facility] Organization [facility] Address Unknown Phone Unavailable Care Team Providers Care Staple Processing Machine Operator Name Role Phone French Pelaez Primary Care Physician [phone] Encounter VC Date(s): 04/19/15 - 04/19/15 [facility] [address] [place] [id number] Discharge Diagnosis: Menorrhagia Discharge Diagnosis: Migraines Discharge Disposition: 01-Home or Self Care Attending Physician: French Pelaez DO Admitting Physician: French Pelaez DO Vital Signs No data available for this [...] TWICE DAILY, # 60 unknown unit, eRx: [facility], INHALE ONE DOSE BY [...] days, # 30 tabs, 0 Refill(s), Pharmacy: [facility], 1 tabs Oral Bedtime (once a day),x30 days,PRN:as needed for spasm Start Date: 10/27/15 Stop Date: 11/26/15 Status: Ordered Dexilant 60 mg oral delayed release capsule See Instructions, 1 caps Oral Daily, # 30 caps, eRx: [facility], 1 caps Oral Daily Start Date: 04/12/15 Status: Ordered Dexilant 60 mg oral delayed release capsule See Instructions, 1 caps Oral Daily, # 30 caps, 5 Refill(s), eRx: [facility], 1 caps Oral Daily Start Date: 05/12/15 Status: Ordered meloxicam 15 mg oral tablet 15 mg 1 tabs, Oral, Daily, # 30 tabs, 0 Refill(s), Pharmacy: [facility], 1 tabs Oral Daily Start Date: 10/27/15 Status: Ordered rizatriptan 10 mg oral tablet See Instructions, TAKE ONE TABLET BY MOUTH AT ONSET OF HEADACHE, MAY REPEAT IN 2 HOURS IF NOT BETTER. MAXIMUM 2 TABLETS PER DAY., # 20 tabs, eRx: [facility], TAKE ONE TABLET BY [...] # 18 unknown unit, 6 Refill(s), eRx: [facility], INHALE TWO PUFFS EVERY [...] Visit Note Author: French Pelaez DO Date: 04/19/15 Assessment/Plan Menorrhagia Pathophysiology of this presentation, and differential diagnosis, discussed in detail with the patient and her who was present. All questions were answered. 1. Given that there was a month or 2 between taking out her previous contraception and the placement of the new device I would expect her to have some menstrual irregularity for the first couple of months therefore I do not find her menorrhagia to be in usual. 2. If this persists then we may consider sending her to gynecology for further evaluation . Ordered: Office Visit Level 4 Est 67504 Migraines Pathophysiology of this presentation, and differential diagnosis, discussed in detail with the patient and her who was present. All questions were answered. 1. We discussed primary and secondary migraine treatment. Emphasis was made and prevention especially since she notes what her triggers are. I recommended avoiding those foods and drinks that causes her headaches. 2. Continue using the triptan as needed. 3. We may consider using Topamax as needed if the migraines are occurring with more frequency. 4. Patient and her voiced understanding, handout was provided in [place] discussing migraine. Ordered: Office Visit Level 4 Est 66227 Extracted from: Title: Ambulatory Patient Education Author: French Pelaez DO Date: 04/19/15 Family Medicine Enxaqueca (Migraine Headache) A enxaqueca jolene farshad intensa e pulsante em um ou ambos os lados da cabea. A enxaqueca pode durar de 30 minutos a diversas horas. CAUSAS A causa exata da enxaqueca nem sempre conhecida. Contudo, jolene enxaqueca pode ser causada quando os nervos do crebro so irritados e liberam substncias qumicas que causam inflamao. Isso causa a farshad. Certas coisas tambm podem disparar enxaquecas, magdy betsy: lcool. Tabagismo. Estresse. Menstruao. Queijos envelhecidos. Alimentos e bebidas que contm nitratos, glutamato, aspartame ou tiramina. Falta de sono. Chocolate. Cafena. Fome. Esforo fsico. Fadiga. Medicamentos usados para tratar a farshad no peito (nitroglicerina), plulas anticoncepcionais, estrognio e alguns medicamentos para presso arterial. SINAIS E SINTOMAS Farshad em um ou ambos os lados da cabea. Farshad pulsante ou latejante. Farshad intensa que impede as atividades dirias. Farshad que agravada por qualquer atividade fsica. Nuseas, vmitos ou ambos. Tontura. Farshad com a exposio a luzes brilhantes, rudos altos ou atividades. Sensibilidade jane a luzes brilhantes, rudos altos ou cheiros. Antes de a enxaqueca comear, voc pode notar sinais de que kasandra est chegando (aura). Jolene aura pode incluir: Sensao de luzes piscando. Viso de pontos luminosos, halos ou linhas em ziguezague. Viso afunilada ou borrada. Sensao de dormncia ou formigamento. Dificuldade para falar. Fraqueza muscular. DIAGNSTICO A enxaqueca com frequncia diagnosticada com base em: Sintomas. Exame fsico. Jolene tomografia computadorizada ou ressonncia magntica da cabea. Esses exames de imagens no diagnosticam enxaquecas, mas podem ajudar a descartar outras causas de farshad de cabea. TRATAMENTO Medicamentos podem ser administrados para a farshad e nuseas. Medicamentos tamb m podem ser administrados para ajudar a prevenir a recorrncia da enxaqueca. INSTRUES PARA TRATAMENTO DOMICILIAR Somente tome medicamentos vendidos com ou rima receita mdica para farshad, desconforto ou febre conforme a indicao de se mdico. O uso de narc ticos em marco antonio prazo no recomendado. Deite-se em um quarto escuro e quieto quando tiver enxaqueca. Mantenha um dirio para descobrir o que pode estar causando suas enxaquecas. Escreva, por exemplo: O que voc come ou kenny. Quanto tempo dorme. Quaisquer alteraes em sua dieta ou medicamentos. Limite o consumo de lcool. Pare de fumar, se for o alexi. Durma por 7 a 9 horas, ou betsy recomendado por seu mdico. Limite o estresse. Mantenha as luzes fracas se luzes brilhantes o incomodarem e piorarem suas enxaquecas. PROCURE UM MDICO IMEDIATAMENTE SE: A enxaqueca piorar. Tiver febre. Seu pescoo estiver rgido. Apresentar perda de viso. Tiver fraqueza muscular ou perda de controle muscular. Comear a perder o equilbrio ou tiver dificuldade para caminhar. Sentir-se fraco ou desmaiar. Desenvolver sintomas intensos diferentes de seus primeiros sintomas. CERTIFIQUE-SE DE: Compreender estas instrues. Observar seu estado de sade. Procurar um mdico imediatamente se no se sentir bem ou piorar. Document Released: 08/12/2006 Document Revised: 06/02/2014 [facility] Patient Information 2015 [email or web address]. This information is not intended to replace advice given to you by your health care provider. Make sure you discuss any questions you have with your health care provider. Internal Medicine Enxaqueca recorrente (Recurrent Migraine Headache) A enxaqueca jolene farshad intensa e pulsante em um ou ambos os lados da cabea. Enxaquecas recorrentes so enxaquecas que sempre retornam. A enxaqueca pode durar de 30 minutos a diversas horas. CAUSAS A causa exata da enxaqueca nem sempre conhecida. Entretanto, jolene enxaqueca pode ser causada quando nervos no crebro so irritados e liberam subst ncias qumicas que causam inflamao. Isso causa a farshad. Certas coisas tambm podem desencadear enxaquecas, betsy: lcool. Tabagismo. Estresse. Menstruao. Queijos envelhecidos. Alimentos e bebidas que contm nitratos, glutamato, aspartame ou tiramina. Falta de sono. Chocolate. Cafena. Fome. Esforo fsico. Fadiga. Medicamentos usados para tratar a farshad no peito (nitroglicerina), plulas de controle de natalidade, estrognio e alguns medicamentos para presso arterial. SINTOMAS Farshad em um ou ambos os lados da cabea. Farshad pulsante ou latejante. Farshad intensa que impede as atividades dirias. Farshad que agravada por qualquer atividade fsica. Nuseas, vmitos ou ambos. Tontura. Farshad com a exposio a luzes brilhantes, rudos altos ou atividades. Sensibilidade jane a luzes brilhantes, rudos altos ou cheiros. Antes de a enxaqueca comear, voc pode notar sinais de que kasandra est chegando (aura). Jolene aura pode incluir: Sensao de luzes piscando. Viso de pontos luminosos, halos ou linhas em ziguezague. Viso afunilada ou borrada. Sensao de dormncia ou formigamento. Dificuldade para falar. Fraqueza muscular. DIAGNSTICO Jolene enxaqueca recorrente frequentemente diagnosticada com base em: [place]. Exame fsico. Jolene tomografia computadorizada ou ressonncia magntica da cabea. Esses exames de imagens no diagnosticam enxaquecas, mas podem ajudar a descartar outras causas de farshad de cabea. TRATAMENTO Medicamentos podem ser administrados para a farshad e nuseas. Medicamentos tamb m podem ser administrados para ajudar a prevenir a recorrncia da enxaqueca. INSTRUES PARA TRATAMENTO DOMICILIAR Somente tome medicamentos vendidos com ou rima receita mdica para farshad, desconforto ou febre conforme a indicao de seu mdico. O uso de narc ticos em marco antonio prazo no recomendado. Deite-se em um quarto escuro e quieto quanto tiver jolene enxaqueca. Mantenha um dirio para descobrir o que pode estar causando suas enxaquecas. Escreva, por exemplo: O que voc come ou kenny. Quanto tempo dorme. Quaisquer alteraes em sua dieta ou medicamentos. Limite o consumo de lcool. Pare de fumar, se for o alexi. Durma por 7 a 9 horas, ou betsy recomendado por seu mdico. Limite o estresse. Mantenha as luzes fracas se luzes brilhantes o incomodarem e piorarem suas enxaquecas. PROCURE UM MDICO SE: Voc no obtm alvio dos medicamentos que lhe ying fornecidos. Voc tem dores reincidentes. Tiver febre. PROCURE UM MDICO IMEDIATAMENTE SE: A enxaqueca piorar. Seu pescoo estiver rgido. Tiver perda de viso. Tiver fraqueza muscular ou perda de controle muscular. Comear a perder o equilbrio ou tiver dificuldade para caminhar. Sentir-se fraco ou desmaiar. Desenvolver sintomas intensos diferentes de seus primeiros sintomas. CERTIFIQUE-SE DE: Compreender estas instrues. Observar seu estado de sade. Procurar um mdico imediatamente se no se sentir bem ou piorar. Document Released: 08/12/2006 Document Revised: 08/17/2014 [employer] Patient Information 2015 [employer], [facility]. This information is not intended to replace advice given to you by your health care provider. Make sure you discuss any questions you have with your health care provider. No follow up information was provided.
--- OUTSIDE RECORDS SUMMARY | 2016-11-15 19:41 | XMS REPORT | Referral Summary ---
Author Author [facility], Family Medicine Organization [facility] Address Unknown Phone Unavailable Care Team Providers Care Flamer After Lasting Name Role Phone French Pelaez Primary Care Physician [phone] Encounter VC Date(s): 06/23/15 - 06/23/15 [facility] [address] [place] [address] Discharge Diagnosis: Tobacco user Discharge Diagnosis: Epicondylitis [...] TWICE DAILY, # 60 unknown unit, eRx: [facility], INHALE ONE DOSE BY MOUTH TWICE DAILY [...] labeling, # 53 tabs, 0 Refill(s), Pharmacy: [facility] 242 Start Date: 06/23/15 Status: Ordered clonazePAM 1 mg oral tablet, disintegrating 1 mg 1 tabs, Oral, Daily, as needed for anxiety, 0 Refill(s) Start Date: 02/01/14 Status: Ordered Dexilant 60 mg oral delayed release capsule See Instructions, 1 caps Oral Daily, # 30 caps, eRx: [facility] 2428, 1 caps Oral Daily Start Date: 04/12/15 Status: Ordered Dexilant 60 mg oral delayed release capsule See Instructions, 1 caps Oral Daily, # 30 caps, 5 Refill(s), eRx: [facility] 2428, 1 caps Oral Daily Start [...] TABLETS PER DAY., # 20 tabs, eRx: [facility] 2428, TAKE ONE TABLET BY MOUTH [...] # 18 unknown unit, 6 Refill(s), eRx: [place] [id number], INHALE TWO PUFFS EVERY 4 TO 6 [...] improvement. Ordered: Office Visit Level 4 Est 97348 Tobacco user 1. Patient was commended on her decision regarding smoking cessation. 2. She was started on Chantix starter pack take as directed. We will refill the medication as needed for the next 12 months. 3. Handout provided regarding smoking cessation. Ordered: Office Visit Level 4 Est 01418 Orders: varenicline, 1 tabs, Oral, BID, as directed on package labeling, # 53 tabs, 0 Refill(s), Pharmacy: [facility]23 Extracted from: Title: Ambulatory Patient Education Author: [...] depois que voc parar de fumar ? [place]stock pretende lidar com elas? Quem poder ajud-lo nos momentos difceis? Sua famlia? Amigos? Seu m dico? Quais sensaes de prazer o fumo proporciona a voc? De que forma voc poder obter prazer se parar de fumar? Aqui esto algumas perguntas para fazer a seu mdico. [place] voc pode me ajudar a ter sucesso? Quais medicamentos voc libertad que seriam os melhores para zaire e mike mere tash-los? O que mere fazer se precisar de mais ajuda? Mike a abstinncia ao fumo? Mike milana obter informaes sobre a abstinncia? PREPARE-SE [...] se distrair quando tiver vontade de fumar. [place] com algum, fa a jazmine caminhada ou se ocupe com alguma tarefa. Mude sua rotina normal. Use um caminho diferente para ir ao trabalho. Charlene ch em vez de caf. [place] o caf da alon em um lugar diferente. Reduza o estresse. [place] um banho quente, exercite-se ou solomon um [...] Document Revised: 12/27/2014 ExitCare Patient Information 2015 [employer]. This information is not intended to replace advice given to you by your health care provider. Make sure you discuss any questions you have with your health care provider. [place] parar de fumar, dicas para o sucesso [...] [place]. Document Released: 12/29/2009 Document Revised: 12/27/2014 [facility] Patient Information 2015 [employer]. This information is not intended to replace [...] Document Revised: 12/27/2014 ExitCare Patient Information 2015 [facility]. This information is not intended to replace [...] and use proper technique and have a assistant baseball coach correct improper technique. Wear a tennis [...] prescribed by your caregiver, physical therapist, or sports trainer. Use a heat pack or a [...] involvement from your physician, physical therapist or sports trainer. While completing these exercises, remember: Restoring [...] directed by your physician, physical therapist or sports trainer, complete this stretch with your elbow [...] directed by your physician, physical therapist or sports trainer, complete this stretch with your elbow [...] involvement from your physician, physical therapist or sports trainer. While completing these exercises, remember: Muscles can gain both the endurance and the strength needed for everyday activities through controlled exercises. Complete these exercises as instructed by your physician, physical therapist or sports trainer. Increase the resistance and repetitions only [...] this exercise times per day STRENGTH - Die Developer Grasp a tennis ball, a dense sponge, or a large, rolled sock in your hand. Squeeze as hard as you can, without increasing any pain. Hold this position for seconds. Release your supervising deputy slowly. Repeat times. Complete this exercise times per day. STRENGTH Forearm Supinators Sit with your right / left forearm supported on a table, keeping your elbow below shoulder height. Rest your hand over the edge, palm down. Gently supervising deputy a hammer or a soup ladle. Without [...] hand over the edge, palm up. Gently supervising deputy a hammer or a soup ladle. Without moving your elbow, slowly turn your palm and hand upward to a "thumbs-up" position. Hold this position for seconds. Slowly return to the starting position. Repeat times. Complete this exercise times per day. Document Released: 08/12/2006 Document Revised: 11/03/2012 Document Reviewed: [facility] Patient Information 2015 [facility], [facility]. This information is not intended to replace advice given to you by your health care provider. Make sure you discuss any questions you have with your health care provider. No follow up information was provided.
--- OUTSIDE RECORDS SUMMARY | 2016-11-15 19:41 | XMS REPORT | Referral Summary ---
Author Author [facility], Surgery Organization [facility], Surgery Address Unknown Phone Unavailable Care Team Providers Care Brush Material Preparer Name Role Phone PavithrachelseaFrench Primary Care Physician [phone] Encounter VC Date(s): 05/18/15 - 05/18/15 [facility], Surgery [address] [place] [address] [place] [address] Discharge Disposition: 01-Home or Self Care Attending Physician: Gideon Ritter MD Admitting Physician: Gideon Ritter MD Vital Signs No data available for [...] TWICE DAILY, # 60 unknown unit, eRx: [facility], INHALE ONE DOSE [...] Daily, # 30 caps, 2 Refill(s), eRx: [facility]28, 1 caps Oral Daily Start Date: 11/04/15 Status: Ordered meloxicam 15 mg oral tablet 15 mg 1 tabs, Oral, Daily, # 30 tabs, 0 Refill(s), Pharmacy: [facility] 2428, 1 tabs Oral Daily Start Date: 10/27/15 Status: Ordered rizatriptan 10 mg oral tablet See Instructions, TAKE ONE TABLET BY MOUTH AT ONSET OF HEADACHE, MAY REPEAT IN 2 HOURS IF NOT BETTER. MAXIMUM 2 TABLETS PER DAY., # 20 tabs, eRx: [facility], TAKE ONE TABLET BY [...] # 18 unknown unit, 6 Refill(s), eRx: [facility], INHALE TWO PUFFS [...] Date Related Diagnosis Body Site Colonoscopy1 05/18/15 Colonoscopy, flexible; diagnostic, including 05/18/15 collection of specimen(s) by brushing or washing, when performed (separate procedure) COLORECTAL CANCER SCREENING; COLONOSCOPY ON 05/18/15 INDIVIDUAL [...]
--- OUTSIDE RECORDS SUMMARY | 2016-11-15 19:41 | XMS REPORT | Referral Summary ---
Author Author [facility], Family Medicine Organization [facility] Address Unknown Phone Unavailable Care Team Providers Care Market Risk Analyst Name Role Phone French Pelaez Primary Care Physician [phone] Encounter VC Date(s): 08/31/16 - 08/31/16 [facility] [address] [place] [address] Discharge Diagnosis: HTN (hypertension) Discharge Diagnosis: Moderate major depression Discharge Diagnosis: Heart palpitations Discharge Disposition: 01-Home or Self Care Attending Physician: French Pelaez DO Admitting Physician: French Pelaez DO Vital Signs Most recent to 1 oldest [Reference Range]: Peripheral Pulse 87 bpm Rate [60-100 bpm] (08/31/16 9:44 AM) Respiratory Rate 16 br/min [14-20 br/min] (08/31/16 9:44 AM) Blood Pressure 118/78 mmHg [90-140/60-90 mmHg] (08/31/16 9:44 AM) SpO2 99 % (08/31/16 9:44 AM) Problem List Condition Effective Dates Status [...] TWICE DAILY, # 60 unknown unit, eRx: [facility], INHALE ONE DOSE [...] DAILY, # 30 caps, 5 Refill(s), Pharmacy: [facility]28, TAKE ONE CAPSULE BY MOUTH ONCE DAILY Start Date: 08/17/16 Status: Ordered Fioricet oral tablet 1 tabs, Oral, q4hr, as needed for pain, # 40 tabs, 3 Refill(s), Pharmacy: [facility] 2428 Start Date: 08/21/16 Status: Ordered hydroCHLOROthiazide 25 mg oral tablet 25 mg 1 tabs, Oral, Daily, # 30 tabs, 0 Refill(s), Pharmacy: [facility]28, 1 tabs Oral Daily Start Date: 08/31/16 Status: Ordered lisinopril-hydrochlorothiazide 20 mg-12.5 mg oral tablet 1 tabs, Oral, Daily, # 30 tabs, 2 Refill(s), Pharmacy: [facility] 2428 Start Date: 08/21/16 Stop Date: [...] # 18 unknown unit, 6 Refill(s), eRx: [facility], INHALE TWO PUFFS EVERY 4 TO 6 HOURS NEEDED Start Date: 03/04/15 Status: Ordered Viibryd 40 mg oral tablet mg tabs, Oral, Daily, 0 Refill(s) Start Date: 07/10/16 Status: Ordered Wellbutrin XL 300 mg/24 hours oral tablet, extended release 300 mg 1 tabs, Oral, Daily, # 30 tabs, 1 Refill(s), Pharmacy: [facility]28, 1 tabs Oral Daily [...] Extracted from: Title: Office Visit Note Author: PavithraFrench tran Date: 08/31/16 Assessment/Plan 1.Moderate major depression 1. Continue current psych medications. We will try to get her set up with a psychiatrist in [place] for farther management and recommendations regarding her mental health. Heart palpitations 1. EKG is for normal sinus rhythm with a heart rate of 72. 2. We will set her up for a Holter monitor to rule out arrhythmia. 3. Follow-up if having chest discomfort. Ordered: Office Visit Level 4 Est 95266 HTN (hypertension) 1. Discontinue lisinopril for concerns of allergic reaction. 2. Hydrochlorothiazide 25 mg daily. 3. Follow-up in a week for blood pressure management. Ordered: hydrochlorothiazide, 25 mg 1 tabs, Oral, Daily, # 30 tabs, 0 Refill(s), Pharmacy: [facility], 1 tabs Oral Daily
--- OUTSIDE RECORDS SUMMARY | 2016-11-15 19:41 | XMS REPORT | Referral Summary ---
Author Author [facility], Endocrinology Organization [facility] Endocrinology Address Unknown Phone Unavailable Care Team Providers Care Computer Support Specialist Instructor Name Role Phone French Pelaez Primary Care Physician [phone] Encounter Date(s): 04/05/15 - 04/05/15 [facility], Endocrinology [address] [place] [address] [facility] Discharge Diagnosis: Osteopenia Discharge Diagnosis: Hyperparathyroidism Discharge Disposition: 01-Home or Self Care Attending Physician: Kathy Franklin MD Admitting Physician: Kathy Franklin MD Vital Signs Most recent to 1 oldest [Reference Range]: Peripheral Pulse 80 bpm Rate [60-100 bpm] (04/05/15 8:34 AM) Blood Pressure 124/90 mmHg [90-140/60-90 mmHg] (04/05/15 8:34 AM) Problem List Condition Effective Dates Status [...] TWICE DAILY, # 60 unknown unit, [facility], INHALE ONE DOSE BY MOUTH TWICE DAILY [...] PACKAGE, # 53 tabs, 1 Refill(s), eRx: [facility], TAKE DIRECTED ON PACKAGE Start Date: 08/08/15 Status: Ordered clonazePAM 1 mg oral tablet, disintegrating 1 mg 1 tabs, Oral, Daily, as needed for anxiety, 0 Refill(s) Start Date: 02/01/14 Status: Ordered cyclobenzaprine 10 mg oral tablet 10 mg 1 tabs, Oral, Bedtime (once a day), as needed for spasm, X 30 days, # 30 tabs, 0 Refill(s), Pharmacy: [facility]28, 1 tabs Oral Bedtime (once a day),x30 days,PRN:as needed for spasm Start Date: 09/27/15 Stop Date: 10/27/15 Status: Ordered Dexilant 60 mg oral delayed release capsule See Instructions, 1 caps Oral Daily, # 30 caps, eRx: [facility]28, 1 caps Oral Daily Start Date: 04/12/15 Status: Ordered Dexilant 60 mg oral delayed release capsule See Instructions, 1 caps Oral Daily, # 30 caps, 5 Refill(s), eRx: [facility], 1 caps Oral Daily Start Date: 05/12/15 Status: Ordered meloxicam 15 mg oral tablet 15 mg 1 tabs, Oral, Daily, # 30 tabs, 0 Refill(s), Pharmacy: [facility]28, 1 tabs Oral [...] TABLETS PER DAY., # 20 tabs, eRx: [facility], TAKE ONE TABLET [...] # 18 unknown unit, 6 Refill(s), eRx: [facility], INHALE TWO PUFFS [...] pain, # 42 caps, 0 Refill(s), Pharmacy: [facility], 1 caps Oral BID,PRN:as [...]
--- OUTSIDE RECORDS SUMMARY | 2016-11-15 19:41 | XMS REPORT | Referral Summary ---
Author Author [facility], Otolaryngology Organization [facility] Ot[facility] Address Unknown Phone Unavailable Care Team Providers Care Felt Hat Inspector And Packer Name Role Phone French Pelaez Primary Care Physician [phone] Encounter VC Date(s): 06/28/16 - 06/28/16 [facility], Otol[facility]ology [address] [place], [place] [address] Discharge Diagnosis: Primary hyperparathyroidism Discharge Disposition: 01-Home or Self Care Attending Physician: Amari Torres MD Admitting Physician: Amari Torres MD Referring Physician: Kathy Franklin MD Vital Signs No data available for [...] TWICE DAILY, # 60 unknown unit, eRx: [facility], INHALE ONE DOSE BY [...] DAILY, # 30 caps, 5 Refill(s), eRx: [facility], TAKE ONE CAPSULE BY MOUTH ONCE DAILY Start Date: 02/02/16 Status: Ordered Fioricet oral tablet 1 tabs, Oral, q4hr, as needed for pain, # 40 tabs, 0 Refill(s), Pharmacy: [facility] 2428 Start Date: 05/28/16 Status: Ordered rizatriptan 10 mg oral tablet See Instructions, TAKE ONE TABLET BY MOUTH AT ONSET OF HEADACHE, MAY REPEAT IN 2 HOURS IF NOT BETTER. MAXIMUM OF 2 TABLETS PER DAY., # 20 tabs, eRx: [facility], TAKE ONE TABLET BY MOUTH AT ONSET OF HEADACHE, MAY REPEAT IN 2 HOURS IF NOT BE... Start Date: 04/03/16 Status: Ordered temazepam 30 mg oral capsule 30 mg 1 caps, Oral, Bedtime (once a day), as needed for sleep, 0 Refill(s) Start Date: 02/22/16 Status: Ordered traMADol 50 mg oral tablet See Instructions, as needed for pain, 1-2 tabs Oral q6hr, # 40 tabs, 0 Refill(s) Start Date: 06/26/16 Stop Date: 07/10/16 Status: Ordered Ventolin HFA 90 mcg/inh inhalation aerosol See Instructions, INHALE TWO PUFFS EVERY 4 TO 6 HOURS NEEDED, # 18 unknown unit, 6 Refill(s), eRx: [facility], INHALE TWO PUFFS EVERY 4 TO 6 HOURS NEEDED Start Date: 03/04/15 Status: Ordered Zantac 150 mg, Oral, Bedtime (once a day), 0 Refill(s) Start Date: 05/17/14 Status: Ordered Results No data available for this section Immunizations Vaccine Date Refusal Reason influenza virus vaccine, inactivated 06/21/15 Procedures Procedure Date Related Diagnosis Body Site Laryngoscopy, flexible fiberoptic; diagnostic 06/28/16 Bilateral L5-S1 Facet 04/24/16 BILATERAL TROCHANTERIC BURSE/ [...] Extracted from: Title: Office Visit Note Author: Amari Torres MD Date: 06/28/16 Assessment/Plan 1.Primary hyperparathyroidism Patient would benefit from parathyroid exploration with intraoperative parathyroid hormoneassay. This will be scheduled in surgery center. I went over the surgical procedurewith patient and . We discussed a small anterior skin crease incision. We discussed the possibility of more than one abnormal gland as well as possibly not finding an abnormal gland. We discussed the possibility of requiring calcium and vitamin D for "hungry bone syndrome". We discussed recurrent laryngeal nerve function and remote possibility of damage to same.. They appeared to understand all concepts and wished to proceed. Ordered: Laryngoscopy, Flexible Fiberoptic; Diagnostic 19658 Office New Consult Level 4 65502
--- OUTSIDE RECORDS SUMMARY | 2016-11-15 19:41 | XMS REPORT | Referral Summary ---
Author Author [facility], Family Medicine Organization [facility] Address Unknown Phone Unavailable Care Team Providers Care Fighter Pilot Name Role Phone PavithrachelseaFrench Primary Care Physician [phone] Encounter Date(s): 06/21/15 - 06/21/15 [facility] [address] [place] [address] Discharge Diagnosis: Encounter for gynecological examination (general) [...] Daily, # 30 caps, 2 Refill(s), eRx: [facility], 1 caps Oral Daily Start Date: 11/04/15 Status: Ordered meloxicam 15 mg oral tablet 15 mg 1 tabs, Oral, Daily, # 30 tabs, 0 Refill(s), Pharmacy: [facility], 1 tabs Oral Daily Start Date: 10/27/15 Status: Ordered rizatriptan 10 mg oral tablet See Instructions, TAKE ONE TABLET BY MOUTH AT ONSET OF HEADACHE, MAY REPEAT IN 2 HOURS IF NOT BETTER. MAXIMUM 2 TABLETS PER DAY., # 20 tabs, 0 Refill(s), Pharmacy: [facility], TAKE ONE TABLET BY MOUTH AT ONSET [...] # 18 unknown unit, 6 Refill(s), eRx: [facility], INHALE TWO PUFFS EVERY 4 [...]
--- OUTSIDE RECORDS SUMMARY | 2016-11-15 19:41 | XMS REPORT | Referral Summary ---
Author Author [facility], Pain Management Organization [facility] Address Unknown Phone Unavailable Care Team Providers Care Hydraulic Repairer Name Role Phone French Pelaez Primary Care Physician [phone] Encounter VC Date(s): 03/13/16 - 03/13/16 [facility] Pain [facility] [address] [facility] [place] [address] Discharge Diagnosis: Enthesopathy of hip region Discharge Disposition: 01-Home or Self Care Attending Physician: Wally Skinner MD Admitting Physician: Wally Skinner MD Vital Signs Most recent to 1 oldest [Reference Range]: Blood Pressure 150/98 mmHg [90-140/60-90 mmHg] *HI* (03/13/16 3:45 PM) Problem List Condition Effective Dates Status [...] DAILY, # 30 caps, 5 Refill(s), eRx: [facility], TAKE ONE CAPSULE [...] Procedures Procedure Date Related Diagnosis Body Site Arthrocentesis, aspiration and/or injection, 03/13/16 major joint or bursa (eg, shoulder, hip, knee, subacromial bursa); without ultrasound guidance BILATERAL TROCHANTERIC BURSE/ INJ UNDER 03/13/16 ULTRASOUND [...]
--- OUTSIDE RECORDS SUMMARY | 2016-11-15 19:41 | XMS REPORT | Referral Summary ---
Author Author [facility], Family Medicine Organization [facility] Address Unknown Phone Unavailable Care Team Providers Care Scrap Drop Crane Operator Name Role Phone French Pelaez Primary Care Physician [phone] Encounter VC Date(s): 09/07/16 - 09/07/16 [facility] [address] [place] [address] Discharge Diagnosis: Palpitations Discharge Diagnosis: Severe major depression Discharge Diagnosis: HTN (hypertension) Discharge Disposition: 01-Home or Self Care Attending Physician: French Pelaez DO Admitting Physician: French Pelaez DO Vital Signs Most recent to 1 oldest [Reference Range]: Peripheral Pulse 100 bpm Rate [60-100 bpm] (09/07/16 8:15 AM) Respiratory Rate 18 br/min [14-20 br/min] (09/07/16 8:15 AM) Blood Pressure 122/80 mmHg [90-140/60-90 mmHg] (09/07/16 8:15 AM) SpO2 98 % (09/07/16 8:15 AM) Problem List Condition Effective Dates Status [...] TWICE DAILY, # 60 unknown unit, eRx: [facility], INHALE ONE DOSE BY [...] DAILY, # 30 caps, 5 Refill(s), Pharmacy: [facility], TAKE ONE CAPSULE BY MOUTH ONCE DAILY Start Date: 08/17/16 Status: Ordered Fioricet oral tablet 1 tabs, Oral, q4hr, as needed for pain, # 40 tabs, 3 Refill(s), Pharmacy: [facility] 2428 Start Date: 08/21/16 Status: Ordered hydroCHLOROthiazide 25 mg oral tablet 25 mg 1 tabs, Oral, Daily, # 30 tabs, 0 Refill(s), Pharmacy: [facility]28, 1 tabs Oral Daily Start Date: 08/31/16 Status: Ordered lisinopril-hydrochlorothiazide 20 mg-12.5 mg oral tablet 1 tabs, Oral, Daily, # 30 tabs, 2 Refill(s), Pharmacy: [facility] 2428 Start Date: 08/21/16 Stop [...] # 18 unknown unit, 6 Refill(s), eRx: [facility], INHALE TWO PUFFS EVERY 4 TO 6 HOURS NEEDED Start Date: 03/04/15 Status: Ordered Viibryd 40 mg oral tablet mg tabs, Oral, Daily, 0 Refill(s) Start Date: 07/10/16 Status: Ordered Wellbutrin XL 300 mg/24 hours oral tablet, extended release 300 mg 1 tabs, Oral, Daily, # 30 tabs, 1 Refill(s), Pharmacy: [facility]28, 1 tabs Oral Daily [...] Title: Office Visit Note Author: French Pelaez Date: 09/07/16 Assessment/Plan 1.Palpitations 1. I'm concerned that her palpitations are secondary to her multiple psychiatric medications. 2. We will have the clinical pharmacist review her medications and make recommendations. 3. We will try to get her into psychiatrist in the next couple of weeks for farther evaluation and recommendations. 4. She was fitted with a Holter monitor, report is pending. 5. Avoid stimulants. Ordered: Office Visit Level 4 Est 02888 2.Severe major depression As above Ordered: Office Visit Level 4 Est 30137 3.HTN (hypertension) 1. Blood pressure is controlled at this time. 2. Continue with low salt diet. 3. Continue with current medications. Ordered: Office Visit Level 4 Est 83386
--- OUTSIDE RECORDS SUMMARY | 2016-11-15 19:41 | XMS REPORT | Referral Summary ---
Author Author [facility] Organization [facility] Address Unknown Phone Unavailable Care Team Providers Care Heel Lining Paster Name Role Phone French Pelaez Primary Care Physician [phone] Encounter VC Date(s): 02/28/16 - 02/28/16 [facility] [address] [facility] [place] [address] Discharge Diagnosis: Lumbar radiculopathy Discharge Diagnosis: Atrophy of calf muscles on right Discharge Diagnosis: Spinal stenosis, lumbar region, without neurogenic claudication Discharge Disposition: 01-Home or Self Care Attending Physician: Wally Skinner MD Admitting Physician: Wally Skinner MD Vital Signs Most recent to 1 oldest [Reference Range]: Apical Heart Rate 84 bpm [60-100 bpm] (02/28/16 7:34 AM) Respiratory Rate 16 br/min [14-20 br/min] (02/28/16 7:34 AM) Blood Pressure 123/82 mmHg [90-140/60-90 mmHg] (02/28/16 7:34 AM) SpO2 100 % (02/28/16 7:34 AM) Problem List Condition Effective Dates Status [...] TWICE DAILY, # 60 unknown unit, eRx: [facility], INHALE ONE DOSE BY MOUTH [...] DAILY, # 30 caps, 5 Refill(s), eRx: [facility], TAKE ONE CAPSULE BY MOUTH [...] # 18 unknown unit, 6 Refill(s), eRx: [facility]21, INHALE TWO PUFFS EVERY 4 [...] Procedures Procedure Date Related Diagnosis Body Site Injection(s), of diagnostic or therapeutic 02/28/16 substance(s) (including anesthetic, antispasmodic, opioid, steroid, other solution), not including neurolytic substances, including needle or catheter placement, includes contrast for localization when performed, L3-4 Translaminar ANTHONY 02/28/16 Colonoscopy1 05/18/15 COLORECTAL [...]
[2016-11-15 19:44] VITALS: Ht 162.6 cm; Wt 71.2 kg
[2016-11-15] MEDS ORDERED: TEMA30CA PO (19:53)
[2016-11-15] MEDS ORDERED: HYDR25TA PO (19:53)
[2016-11-15] MEDS ORDERED: ASPI-557 PO (19:54)
--- OUTSIDE RECORDS SUMMARY | 2016-11-15 20:04 | XMS REPORT | Continuity of Care Document ---
Author Author [facility] Organization [facility] Address Unknown Phone Unavailable Allergies Active Description [...] 38.93 VENOUS CATHETER Tesfaye Rojas MD 07/09/2013 [id number] Introduction of Anti-inflammatory into P GINO WHEELER 08/07/2016 [id number] Introduction of Local Anesthetic into Pe GINO WHEELER 08/07/2016 Results Encounters ACCT No. Visit Date/Time Discharge Status Pt. Type Provider Facility Loc./Unit Complaint [id number] 07/07/2013 06:46:00 2012 08:49:00 DIS Inpatient Gianni Figueroa DO [facility] on [address]
--- OUTSIDE RECORDS SUMMARY | 2016-11-15 20:07 | XMS REPORT | Referral Summary ---
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 Name Role Phone French Pelaez Primary Care Physician [phone] Encounter VC Date(s): 04/27/15 - 04/27/15 [facility] [address] [place] [address] ANDREI Price [id number] Discharge Diagnosis: Screen for colon cancer Discharge Disposition: 01-Home or Self Care Attending Physician: Gideon Ritter MD Admitting Physician: Gideon Ritter MD Referring Physician: French Pelaez DO Vital Signs Most recent to 1 oldest [Reference Range]: Temperature Tympanic 36.9 degC [36.6-38.1 degC] (04/27/15 2:00 PM) Blood Pressure 122/74 mmHg [90-140/60-90 mmHg] (04/27/15 2:00 PM) Problem List Condition Effective Dates Status [...] TWICE DAILY, # 60 unknown unit, [id number] INHALE ONE DOSE BY MOUTH TWICE DAILY [...] days, # 30 tabs, 0 Refill(s), Pharmacy: [id number], 1 tabs Oral Bedtime (once a day),x30 days,PRN:as needed for spasm Start Date: 10/27/15 Stop Date: 11/26/15 Status: Ordered Dexilant 60 mg oral delayed release capsule See Instructions, 1 caps Oral Daily, # 30 caps, 2 Refill(s), eRx: [id number], 1 caps Oral Daily Start Date: 11/04/15 Status: Ordered meloxicam 15 mg oral tablet 15 mg 1 tabs, Oral, Daily, # 30 tabs, 0 Refill(s), Pharmacy: [id number], 1 tabs Oral Daily Start Date: 10/27/15 Status: Ordered rizatriptan 10 mg oral tablet See Instructions, TAKE ONE TABLET BY MOUTH AT ONSET OF HEADACHE, MAY REPEAT IN 2 HOURS IF NOT BETTER. MAXIMUM 2 TABLETS PER DAY., # 20 tabs, eRx: [id number], TAKE ONE TABLET [...] # 18 unknown unit, 6 Refill(s), eRx: [id number], INHALE TWO PUFFS [...] Extracted from: Title: Ambulatory Patient Education Author: Gideon Ritter MD Date: 04/27 Family Medicine Colonoscopy A colonoscopy is an exam to look at the entire large intestine (colon). This exam can help find problems such as tumors, polyps, inflammation, and areas of bleeding. The exam takes about 1 hour. LET YOUR HEALTH CARE PROVIDER KNOW ABOUT: Any allergies you have. All medicines you are taking, including vitamins, herbs, eye drops, creams , and [id number] medicines. Previous problems you or members of your family have had with the use of anesthetics. Any blood disorders you have. Previous surgeries you have had. Medical conditions you have. RISKS AND COMPLICATIONS Generally, this is a safe procedure. However, as with any procedure, complications can occur. Possible complications include: Bleeding. Tearing or rupture of the colon wall. Reaction to medicines given during the exam. Infection (rare). BEFORE THE PROCEDURE Ask your health care provider about changing or stopping your regular medicines. You may be prescribed an oral bowel prep. This involves drinking a large amount of medicated liquid, starting the day before your procedure. The liquid will cause you to have multiple loose stools until your stool is almost clear or light green. This cleans out your colon in preparation for the procedure. Do not eat or drink anything else once you have started the bowel prep, unless your health care provider tells you it is safe to do so. Arrange for someone to drive you home after the procedure. PROCEDURE You will be given medicine to help you relax (sedative). You will lie on your side with your knees bent. A long, flexible tube with a light and camera on the end (colonoscope) will be inserted through the rectum and into the colon. The camera sends video back to a computer screen as it moves through the colon. The colonoscope also releases carbon dioxide gas to inflate the colon. This helps your health care provider see the area better. During the exam, your health care provider may take a small tissue sample ( biopsy) to be examined under a microscope if any abnormalities are found. The exam is finished when the entire colon has been viewed. AFTER THE PROCEDURE Do not drive for 24 hours after the exam. You may have a small amount of blood in your stool. You may pass moderate amounts of gas and have mild abdominal cramping or bloating. This is caused by the gas used to inflate your colon during the exam. Ask when your test results will be ready and how you will get your results. Make sure you get your test results. Document Released: 08/09/2001 Document Revised: 06/02/2014 Document Reviewed: Exit[employer] Patient Information 2015 [employer]. This information is not intended to replace advice given to you by your health care provider. Make sure you discuss any questions you have with your health care provider. No follow up information was provided. Extracted from: Title: Office Visit Note Author: Gideon Ritter MD Date: 04/27/15 Assessment/Plan 1.Screen for colon cancer Ordered: Office Visit Level 1 New [address]226 Plan:Colonoscopy. I didreview the patient's chart [facility] I did discuss colorectal cancer surveillanceas an entity with the patient. I informed the patient that I would recommendthat we would proceed with a colonoscopy to serve as a portion of her overall colorectal cancer surveillance. Risk of endoscopy was discussed with the patient. Risks include but are not inclusive of bleeding and/or perforation requiring surgery. Patient understood and was scheduled.
[2016-11-15 20:08] LABS: BASOPHILS % (AUTO) 0.4 % (0-2); EOSINOPHILS # (AUTO) 0.2 T/MM3 (0-0.5); EOSINOPHILS % (AUTO) 3.3 % (0-4); HCT - HEMATOCRIT 36.6 % (36-46); HGB - HEMOGLOBIN 12.5 GM/DL (12-16); IMMATURE GRANULOCYTE # (AUTO) 0.02 T/MM3 (0.00-0.03); IMMATURE GRANULOCYTE % (AUTO) 0.3 % (0.0-0.5); LYMPHOCYTES # (AUTO) 2.6 T/MM3 (1-4.8); LYMPHOCYTES % (AUTO) 38.1 % (23-45); MEAN CORPUSCULAR HGB 31.2 UUG (26-34); MEAN CORPUSCULAR HGB CONC(MCHC 34.2 GM/DL (31-37); MEAN CORPUSCULAR VOLUME 91.3 UM3 (80-100); MONOCYTES # (AUTO) 0.6 T/MM3 (0-0.8); MONOCYTES % (AUTO) 8.8 % (0-9.0); NEUTROPHILS #(AUTO)-ABSOLUTE 3.3 T/MM3 (1.8-7.7); NEUTROPHILS % (AUTO) 49.1 % (33-66); RED BLOOD COUNT 4.01 M/MM3 (4.00-5.20); WBC - WHITE BLOOD COUNT 6.7 T/MM3 (4.5-11.0)
--- NOTE | 2016-11-15 20:14 | NUR ---
RETURN FROM XRAY
[2016-11-15 20:26] LABS: BLOOD, URINE NEGATIVE (NEGATIVE); COLOR,URINE YELLOW (YELLOW); LEUKOCYTE ESTERASE ,URINE NEGATIVE (NEGATIVE); NITRITE,URINE NEGATIVE (NEGATIVE); UROBILINOGEN,URINE 0.2 EU/DL (NORMAL)
[2016-11-15 20:49] LABS: ALBUMIN 3.6 G/DL (3.5-5.0); ALBUMIN/GLOBULIN RATIO 1.3 RATIO (1.1-2.2); ALKALINE PHOSPHATASE 63 U/L (38-126); ALT (SGPT) 26 U/L (9-52); ANION GAP 8 MEQ/L (5-15); AST (SGOT) 22 U/L (14-36); BUN/CREATININE RATIO 24 RATIO (6-26); CALCIUM 9.7 MG/DL (8.4-10.2); CHLORIDE 107 MEQ/L (98-107); CO2 - CARBON DIOXIDE 27 MEQ/L (22-30); CREATININE 0.9 MG/DL (0.7-1.2); GLOMERULAR FILTRATION RATE 65; GLUCOSE 114 MG/DL (65-110); POTASSIUM 3.6 MEQ/L (3.6-5); SODIUM 142 MEQ/L (134-144); TOTAL PROTEIN 6.4 G/DL (6.3-8.2)
--- NOTE | 2016-11-15 20:54 | ERPDOC ---
Departure Disposition Decision Date: Nov 15, 2016 Disposition Decision Time: 21:13 Disposition: 01 DISCHARGED HOME, SELF-CARE Impression Impression Impression: Primary Impression: Malaise and fatigue Severity: Moderate Condition: Stable Seen By: Mid-level only Referrals: JANNET PELAEZ DO (Family) Patient Instructions: Fatigue (ED) Problems/Meds/Labs Reviewed?: Yes Medications reviewed and manag: Yes Additional Instructions: Follow up with Dr Pelaez this week for reevaluation. Your labs and chest xray today are all normal. Your blood pressures have been stable while you have been in ER. If any new issues/concerns then return to ER. Follow up care ordered?: Yes Mental Status: Alert, Oriented HPI - General Medical General Chief Complaint: General Stated Complaint: POSSIBLE LOW BLOOD PRESSURE Time Seen by Provider: 19:42 Source: patient, family () Exam Limitations: no limitations HPI - General Medical Initial Comments For the last week she has "not felt well". Is unable to fully explain her symptoms but just that she has not felt well. She has had some chills and nausea but no other symptoms. She does have a history of chronic low back pain but today has noted some pain in the upper back as well. Has not had any injury at all. She did not see her PCP for this or take any new medications at all. Has not felt this way in the past. Has a history of anxiety and asthma. Occurred At: home Onset: Gradual Duration: 1 week Severity: moderate Associated Symptoms: fever/chills (chills), loss of appetite, malaise, nausea/ vomiting (nausea, no vomiting), DENIES: chest pain, cough, diaphoresis, headaches, rash, seizure, shortness of breath, syncope, weakness Hx of Similar Symptoms: No Allergies: Coded Allergies: cephalexin (Verified Allergy, Intermediate, RASH, 11/15/16) vancomycin (Verified Allergy, Intermediate, RASH, 11/15/16) iodine (Verified Allergy, Unknown, 11/15/16) Past History Past Medical History Neurological: headaches, migraines Psychological: anxiety, depression Surgical History Reproductive/: Joint: other Family History Family History: Negative Vaccines Hx Influenza Vaccination: No Hx Pneumococcal Vaccination: No Social History Smoking Status: Never smoker Substance Use Type: does not use Alcohol Intake: none Review of Systems Constitutional Constitutional: chills, fatigue, DENIES: dizziness, fever, weakness Eyes Vision: DENIES: blurring, double vision ENMT Ears: DENIES: drainage, pain Sinuses: DENIES: congestion, rhinorrhea Mouth/Throat: DENIES: painful swallowing, scratchy throat, sore throat Cardiovascular Cardiac: DENIES: chest pain, orthopnea Rhythm/Rate: DENIES: irregular beat, palpitations Pulmonary Respiratory: DENIES: cough, dyspnea, sputum, tachypnea GI Upper Abdomen: nausea, DENIES: pain, vomiting Lower Abdomen: DENIES: constipation, diarrhea, pain General: DENIES: dysuria, frequency, urgency Integumentary Skin: DENIES: rash Neurological General: DENIES: blindness, change in strength, headache, numbness, paralysis/ paresis, syncope, tingling, weakness Physical Exam General General Nourishment: well nourished, well developed, appears stated age, no acute distress, adult General Body Habitus: well groomed Vitals and Pain First Documented Vital Signs Date Time Temp Pulse Resp B/P Pulse Ox O2 Delivery O2 Flow Rate FiO2 11/15/16 19:44 99.0 72 17 129/81 100 Room Air Weight: Kilograms: 71.200 Height (feet): 5 Height (inches): 4.00 Triage Pain Scale: RN VS reviewed by Provider: Yes Normal Exams: Eyes: Pupils are PERRLA w/ EOMI, No scleral icterus, irritation, or foreign bodies noted ENMT: No facial trauma, nasal exudates, pharyngeal erythema, or exudates are noted Neck: Full range of motion, without adenopathy, JVD, bruits or thyromegaly Chest/Resp: Clear all stephens, with good airflow, and symmetry bilaterally CV: Regular rate and rhythm, without murmur or gallop, Pulses 2+ all extremities, capillary refill, <2 seconds all ext., no pedal edema noted Abdomen: Bowel sounds positive, soft, non-tender, non-distended, no hepatosplenomegaly, masses or bruits noted Lymphatic: No lymphadenopathy, or lymphedema noted Integumentary: No rashes, hives, or bruising noted Neurologic: Patient is alert, and oriented, cranial nerves, motor/sensory/ cerebellar, exams w/o gross deficits, to observation Psychiatric: Patient exhibits, appropriate attention, emotion and affect Differential Diagnoses Considering: Acute IA, Depression, Hypo/Hyperglycemia, Hypo/Hyperkalemia, Hypo/ Hypernatremia, Medication Effect, Metabolic, Pneumonia, UTI Progress Results/Orders Orders Procedure Category Date Status Time EKG EKG 11/15/16 Taken Chest, Pa & Lateral RAD 11/15/16 Taken Ua, Dip Wreflex LAB 11/15/16 Complete Microsc & Mechanic Insulator 19:47 Cbc W/Auto LAB 11/15/16 Complete Diff-Reflex Manual Cmp - Comprehensive LAB 11/15/16 Complete Metabolic Troponin I W LAB 11/15/16 Complete Hemolysis Index Lorazepam (Ativan) PHA 11/15/16 Complete 21:15 Lab Results Laboratory Tests Test 11/15/16 20:03 11/15/16 20:22 White Blood Count 6.7T/MM3 Red Blood Count 4.01M/MM3 Hemoglobin 12.5GM/DL Hematocrit 36.6% Mean Corpuscular Volume 91.3UM3 Mean Corpuscular Hemoglobin 31.2UUG Mean Corpuscular Hemoglobin Concent 34.2GM/DL RDW Standard Deviation 43.0FL Platelet Count 237T/MM3 Mean Platelet Volume 10.0UM3 Immature Granulocyte % (Auto) 0.3% Neutrophils (%) (Auto) 49.1% Lymphocytes (%) (Auto) 38.1% Monocytes (%) (Auto) 8.8% Eosinophils (%) (Auto) 3.3% Basophils (%) (Auto) 0.4% Absolute Immature Granulocyte (auto 0.02T/MM3 Absolute Neutrophils (auto) 3.3T/MM3 Absolute Lymphocytes (auto) 2.6T/MM3 Absolute Monocytes (auto) 0.6T/MM3 Absolute Eosinophils (auto) 0.2T/MM3 Absolute Basophils (auto) 0.0T/MM3 Turbidity < 20 Sodium Level 142MEQ/L Potassium Level 3.6MEQ/L Chloride Level 107MEQ/L Carbon Dioxide Level 27MEQ/L Anion Gap 8MEQ/L Blood Urea Nitrogen 22.0MG/DL Creatinine 0.9MG/DL Glomerular Filtration Rate Calc 65 BUN/Creatinine Ratio 24RATIO Glucose Level 114MG/DL Calculated Osmolality 277MOSM/KG Calcium Level 9.7MG/DL Total Bilirubin 0.30MG/DL Icterus Index < 2 Aspartate Amino Transf (AST/SGOT) 22U/L Alanine Aminotransferase (ALT/SGPT) 26U/L Alkaline Phosphatase 63U/L Troponin I < 0.012ng/ml Total Protein 6.4G/DL Albumin 3.6G/DL Globulin 2.8G/DL Albumin/Globulin Ratio 1.3RATIO Chemistry Specimen Hemolysis < 15 Urine Collection Type Cleancatch-midstream Urine Color Yellow Urine Turbidity Clear Urine pH 7.0 Urine Specific Rodman 1.010 Urine Protein Negative Urine Glucose (UA) Negative Urine Ketones Trace Urine Blood Negative Urine Nitrite Negative Urine Bilirubin Negative Urine Urobilinogen 0.2EU/DL Urine Leukocyte Esterase Negative Urinalysis Comment Microscopic not ind. Medications Current ED Medications Lorazepam (Ativan) 1 mg O ONCE PO Last administered on 11/15/16t 21:18; Start 11/15/16 at 21:15; Stop 11/15/16 at 21:16; Status DC Progress Progress CBC, CMP, UA, troponin, and chest xray today are all normal. Will go ahead and let her go home. I do want her to follow up with Dr. Pelaez tomorrow or Saturday for reevaluation. If any further issues/concerns then return to ER. Xray Xray : Reason for Exam: Back pain, SOA Xray: CXR PA/Lat Interpretation: Normal ANDI OBREGON APRN Nov 15, 2016 20:54
[2016-11-15] MEDS ORDERED: LORAZEPAM 1 MG TABLET PO ONE (21:15)
[2016-11-15 21:25] VITALS: BP 115/76; PULSE 72; RESP 31; TEMP 99; O2SAT 99
--- NOTE | 2016-11-15 21:25 | NUR ---
DEPART PT AND ARE GIVEN DISMISSAL INSTRUCTIONS WITH VERBAL UNDERSTANDING. PT LEAVES AMBULATORY WITH TO ED REGISTRATION.
--- NOTE | 2016-11-16 07:53 | DI ---
INDICATION: ITS.REASON: chest pain with shortness of air for several days PROCEDURE: CHEST 2-VIEWS UPRIGHT (PA \T\ LAT) Encounter: Initial COMPARISON: None FINDINGS: Scattered calcified granulomas. Lungs are otherwise clear. There is no pleural effusion or pneumothorax. The heart size, mediastinal contours and pulmonary vascularity are within normal limits. There is no significant skeletal abnormality. IMPRESSION: No acute cardiopulmonary disease. .
== END 2016-11-15 21:25 | disposition home or self-care (01) ==
LOC: ED 19:34
DX: R53.81 Other malaise (principal); R53.83 Other fatigue; R11.0 Nausea; R68.83 Chills (without fever)
CPT/HCPCS: 80053; 81003; 84484; 85025; 93005